=== PATIENT | male | born 1975 | race Caucasian/White ===

== ENCOUNTER 2022-05-01 07:58 | Outpatient (CLI) | payer MEDICARE, MEDICAID, SELFPAY | END 2022-05-01 07:59 | disposition home or self-care (01) | LOC: WOUND 08:00 | PROVIDERS: PCP Family Medicine; Visit Provider Surgery | DX: Z53.9 Procedure and treatment not carried out, unspecified reason (principal) ==

== ENCOUNTER 2022-06-24 12:38 | Outpatient (CLI) | payer MEDICARE, MEDICAID, SELFPAY | END 2022-06-24 12:39 | disposition home or self-care (01) | LOC: FBOREF 12:38 | PROVIDERS: PCP Family Medicine; Visit Provider Family Medicine | DX: L02.91 Cutaneous abscess, unspecified (principal) | CPT/HCPCS: 87070; 87186 ==

== ENCOUNTER 2022-08-20 14:31 | Outpatient (CLI) | payer MEDICARE, MEDICAID, SELFPAY | END 2022-08-20 14:32 | disposition home or self-care (01) | LOC: WOUND 14:31 | PROVIDERS: PCP Family Medicine; Visit Provider Nurse Practitioner Family | DX: S00-T88 Injury, poisoning and certain other consequences of external causes (principal) | CPT/HCPCS: 97597; 99212 ==

== ENCOUNTER 2022-08-27 09:31 | Outpatient (CLI) | payer MEDICARE, MEDICAID, SELFPAY | END 2022-08-27 09:32 | disposition home or self-care (01) | PROVIDERS: PCP Family Medicine; Visit Provider Physician Assistant Surgical | DX: S00-T88 Injury, poisoning and certain other consequences of external causes (principal) | CPT/HCPCS: 99212 ==

== ENCOUNTER 2023-05-01 11:59 | Outpatient (CLI) | payer MEDICARE, MEDICAID, SELFPAY | END 2023-05-01 12:00 | disposition home or self-care (01) | LOC: FBOREF 11:59 | PROVIDERS: PCP Family Medicine; Visit Provider Family Medicine | DX: Z86.14 Personal history of Methicillin resistant Staphylococcus aureus infection (principal) | CPT/HCPCS: 87081 ==

== ENCOUNTER 2023-05-05 09:53 | Outpatient (CLI) | payer MEDICARE, MEDICAID, SELFPAY | END 2023-05-05 09:54 | disposition home or self-care (01) | LOC: WOUND 09:54 | PROVIDERS: PCP Family Medicine; Visit Provider Nurse Practitioner Family | DX: I87.313 Chronic venous hypertension (idiopathic) with ulcer of bilateral lower extremity (principal); L97.822 Non-pressure chronic ulcer of other part of left lower leg with fat layer exposed; L97.812 Non-pressure chronic ulcer of other part of right lower leg with fat layer exposed; I89.0 Lymphedema, not elsewhere classified | CPT/HCPCS: 11042; 97602; 99213 ==

== ENCOUNTER 2023-05-13 09:05 | Outpatient (CLI) | payer MEDICARE, MEDICAID, SELFPAY | END 2023-05-13 09:06 | disposition home or self-care (01) | LOC: WOUND 09:06 | PROVIDERS: PCP Family Medicine; Visit Provider Nurse Practitioner Family | DX: I87.311 Chronic venous hypertension (idiopathic) with ulcer of right lower extremity (principal); L97.312 Non-pressure chronic ulcer of right ankle with fat layer exposed; S90.424A Blister (nonthermal), right lesser toe(s), initial encounter; S90.822A Blister (nonthermal), left foot, initial encounter | CPT/HCPCS: 11042; 97602 ==

== ENCOUNTER 2023-05-20 08:51 | Outpatient (CLI) | payer MEDICARE, MEDICAID, SELFPAY | END 2023-05-20 08:52 | disposition home or self-care (01) | LOC: WOUND 08:51 | PROVIDERS: PCP Family Medicine; Visit Provider Nurse Practitioner Family | DX: I87.311 Chronic venous hypertension (idiopathic) with ulcer of right lower extremity (principal); L97.312 Non-pressure chronic ulcer of right ankle with fat layer exposed; I89.0 Lymphedema, not elsewhere classified; S90.822A Blister (nonthermal), left foot, initial encounter | CPT/HCPCS: 11042; 97597 ==

== ENCOUNTER 2023-06-03 09:53 | Outpatient (CLI) | payer MEDICARE, MEDICAID, SELFPAY | END 2023-06-03 09:54 | disposition home or self-care (01) | LOC: WOUND 09:53 | PROVIDERS: PCP Family Medicine; Visit Provider Nurse Practitioner Family | DX: L89.893 Pressure ulcer of other site, stage 3 (principal); F17.210 Nicotine dependence, cigarettes, uncomplicated; Z71.6 Tobacco abuse counseling | CPT/HCPCS: 97597 ==

== ENCOUNTER 2023-06-10 09:49 | Outpatient (CLI) | payer MEDICARE, MEDICAID, SELFPAY | END 2023-06-10 09:50 | disposition home or self-care (01) | LOC: WOUND 09:49 | PROVIDERS: PCP Family Medicine; Visit Provider Nurse Practitioner Family | DX: L89.893 Pressure ulcer of other site, stage 3 (principal); I89.0 Lymphedema, not elsewhere classified | CPT/HCPCS: 11042 ==

== ENCOUNTER 2023-06-17 09:21 | Outpatient (CLI) | payer MEDICARE, MEDICAID, SELFPAY | END 2023-06-17 09:22 | disposition home or self-care (01) | LOC: WOUND 09:21 | PROVIDERS: PCP Family Medicine; Visit Provider Nurse Practitioner Family | DX: L89.893 Pressure ulcer of other site, stage 3 (principal) | CPT/HCPCS: 11042 ==

== ENCOUNTER 2023-07-01 09:23 | Outpatient (CLI) | payer MEDICARE, MEDICAID, SELFPAY | END 2023-07-01 09:24 | disposition home or self-care (01) | LOC: WOUND 09:24 | PROVIDERS: PCP Family Medicine; Visit Provider Nurse Practitioner Family | DX: L89.893 Pressure ulcer of other site, stage 3 (principal) | CPT/HCPCS: 97597 ==

== ENCOUNTER 2023-07-15 09:21 | Outpatient (CLI) | payer MEDICARE, MEDICAID, SELFPAY | END 2023-07-15 09:22 | disposition home or self-care (01) | LOC: WOUND 09:21 | PROVIDERS: PCP Family Medicine; Visit Provider Nurse Practitioner Family | DX: I87.312 Chronic venous hypertension (idiopathic) with ulcer of left lower extremity (principal); L97.822 Non-pressure chronic ulcer of other part of left lower leg with fat layer exposed; I89.0 Lymphedema, not elsewhere classified | CPT/HCPCS: 97597 ==

== ENCOUNTER 2023-07-22 10:34 | Outpatient (CLI) | payer MEDICARE, MEDICAID, SELFPAY | END 2023-07-22 10:35 | disposition home or self-care (01) | LOC: WOUND 10:35 | PROVIDERS: PCP Family Medicine; Visit Provider Nurse Practitioner Family | DX: I87.313 Chronic venous hypertension (idiopathic) with ulcer of bilateral lower extremity (principal); L97.812 Non-pressure chronic ulcer of other part of right lower leg with fat layer exposed; L97.822 Non-pressure chronic ulcer of other part of left lower leg with fat layer exposed; I89.0 Lymphedema, not elsewhere classified | CPT/HCPCS: 97597 ==

== ENCOUNTER 2023-08-12 09:52 | Outpatient (CLI) | payer MEDICARE, MEDICAID, SELFPAY | END 2023-08-12 09:53 | disposition home or self-care (01) | LOC: WOUND 09:52 | PROVIDERS: PCP Family Medicine; Visit Provider Nurse Practitioner Family | DX: I87.313 Chronic venous hypertension (idiopathic) with ulcer of bilateral lower extremity (principal); I89.0 Lymphedema, not elsewhere classified; L97.818 Non-pressure chronic ulcer of other part of right lower leg with other specified severity; L97.828 Non-pressure chronic ulcer of other part of left lower leg with other specified severity | CPT/HCPCS: 99213 ==

== ENCOUNTER 2024-02-12 09:45 | Outpatient (CLI) | payer MEDICARE, MEDICAID, SELFPAY ==
--- OUTSIDE RECORDS SUMMARY | 2024-02-13 07:13 | XMS_ITS | Clinical Summary ---
Author Name Unknown Organization [facility] Address [address] [place] [id number] Care Team Providers Care Greenhouse Worker Name Role Phone Paras Wells Primary Care Physician Encounter Date(s): 11/25/23 - 11/25/[address] [id number] Discharge Disposition: Other Non-PPS Fac Attending Physician: Paras Wells MD Admitting Physician: Paras Wells MD Referring Physician: Paras Wells MD Vital Signs Most recent to oldest [Reference Range]: 1 Pain Present No actual or suspect ed pain (11/25/23 10:00 AM) Patient Care team information Personnel Name: Paras Wells MD Address: Address: [facility] [address] [place], [place] [address]
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
--- OUTSIDE RECORDS SUMMARY | 2024-02-13 07:14 | XMS_ITS | Referral Summary ---
Author Name Unknown Organization [facility] Address [address] [facility] [place] [address] Care Team Providers Care Popcorn Attendant Name Role Phone Paras Aguilar MD Primary Care Provider Allergies Active [...] T6 cord injury 2001 Colostomy status 02/05/2018 Social History Tobacco Use Types Packs/Day Years [...] Advance Directives For more information, please contact: [phone] * Full Code (Latest Code Status on File) Date Activated Date Inactivated Comments 02/09/2018 9:11 AM * Full Code Date Activated Date Inactivated Comments 02/05/2018 5:50 PM 02/09/2018 9:11 AM Care Teams Popcorn Attendant Relationship Specialty Start Date End Date Paras Aguilar MD PCP - General Family Practice 11/03/17
--- OUTSIDE RECORDS SUMMARY | 2024-02-13 07:15 | XMS_ITS | Continuity of Care Document ---
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 buprenorphine HCl [address] 1 tablet by sublingual route 4 times every day allow to dissolve slowly in mouth without chewing or swallowing 2 MG - Active Chronic pain NEXIUM (unknown strength) Unknown Not Available - Active amitriptyline 75 mg tablet take 1.5 tablet by oral route every day at bedtime 112.5 MG - Active gabapentin 600 mg tablet take 2 tablet by oral route 3 times every day 1200 MG - Active mupirocin 2 % topical ointment apply by topical route 2 times every day a small amount to the affected area Not Available - Active omeprazole 20 mg capsule,delayed release take 1 capsule by oral route every day 30 minutes to 1 hour before a meal 20 MG - Active polyethylene glycol 3350 17 gram/dose oral powder take (8.5-17G) by oral route every day mixed with 4-6 oz. water, juice, soda, coffee or tea - Active senna 8.6 mg capsule take 2 capsule by oral route every day 17.2 MG - Active topiramate 100 mg tablet take 1.5 tablet by oral route every day 150 MG - Active topiramate 50 mg tablet Take 1 tablet by mouth daily in the AM, if Jeffrey sent 50mg tablets (take 2 tab by mouth daily if dosage of 25mg) - Active Vitamin D3 25 mcg (1,000 unit) capsule Take 2 tablets by oral route every day - Active acetaminophen 325 mg capsule Take 2 tablets by oral route every 4 hours as needed for mild pain-- do not exceed 4,000mg in 24 hours as needed - Active cyclobenzaprine 10 mg tablet take 0.5 tablet by oral route 2 times every day as needed 5 MG - Active Julia-lamberto 8.6 mg tablet take 1 tablet by oral route every day 8.6 MG - Active metoclopramide 10 mg tablet take 1 tablet by oral route 4- 6 times every hour 30 minutes before meals and at bedtime as needed - Active oxycodone-acetaminop hen 5 mg-325 mg tablet take 1 tablet by oral route every 6 hours as needed as needed 1.00 tablet - Active dantrolene 50 mg capsule take 1 capsule by oral route 3 times every day 50 MG - Active docusate sodium 100 mg capsule take 1 capsule by oral route 3 times every day as needed 100 MG - Active duloxetine 60 mg capsule,delayed release take 2 capsule by oral route every day 120 MG - Active Gavilax 17 gram/dose oral powder take (17G) by oral route 2 times every day mixed with 8 oz. water, juice, soda, coffee or tea 17 G - Active Jobst Ultrasheer - Active omeprazole 20 mg capsule,delayed release take 1 capsule by oral route every day 30 minutes to 1 hour before a meal 20 MG - Active Trokendi XR 100 mg capsule, extended release take 1 capsule by oral route every day 100 MG - Active Proair Digihaler 90 mcg/actuation aerosol powder breath act, sensor inhale 2 puff by inhalation route every 4 - 6 hours as needed 180 MCG - Active Narcan 4 mg/actuation nasal spray spray 0.1 milliliter by intranasal route in 1 nostril may repeat dose every 2-3 minutes as needed alternating nostrils with each dose 4 MG - Active sumatriptan 100 mg tablet take 1 tablet by oral route after onset of migraine; may repeat after 2 hours if headache returns,not to exceed 200mg in 24hrs 100 MG - Active HYOSCYAMINE 0.15MGTABLET unknown dose and sig - Active baclofen 20 mg Tab 2 tabs Q 6hrs, may take 1 additional prn max 7/day (1T PO HS) - Active Procedures Procedure Date Est Pt Eval Moderate Toxicology Test Group B PHONE E/M PHYS/QHP 21-30 MIN Inj Anes Epidur; Lumb/sac 1 Le 24 Inj Anes Epidur; Lumb/sac 1 Le 24 Change Control for Modifier(s) 24 Inj Anes Epidur; Lumb/sac 1 Le Verified No Separate Anesthesia 024 Est Pt Eval Moderate Toxicology Test Group B Est Pt Eval Telehealth Est Pt Eval Telehealth Est Pt Eval Moderate Toxicology Test Group B Est Pt Eval Telehealth PT Eval - Moderate Complexity 3 Est Pt Eval Telehealth Psychiatric Diagnostic Evaluation Teleph one Only Est Pt Eval Moderate Toxicology Test Group B Inj Anes Epidur; Lumb/sac 1 Le 23 Inj Anes Epidur; Lumb/sac 1 Le 23 Inj Anes Epidur; Lumb/sac 1 Le Change Control for Modifier(s) Verified No Separate Anesthesia 023 Est Pt Eval 25 Min Telehealth 3 Est Pt Eval 25 Min Telehealth 3 Est Pt Eval 25 Min Toxicology Test Group B Inject, Spine, Cerv/Thor, Epi/subarc w/i mg Guid Inject, Spine, Cerv/Thor, Epi/subarc w/i mg Guid Verified No Separate Anesthesia 023 Est Pt Eval 25 Min Telehealth 3 Est Pt Eval 25 Min Telehealth 3 Est Pt Eval 25 Min Toxicology Test Group B Est Pt Eval 25 Min Telehealth 2 Est Pt Eval 25 Min Telehealth 2 Est Pt Eval 25 Min Toxicology Test Group B Est Pt Eval 25 Min Telehealth 2 Psychiatric Diagnostic Evaluation Teleph one Only Est Pt Eval 25 Min Telehealth 2 Est Pt Eval 25 Min Toxicology Test Group B Inject, Spine, Lumb/sacr, Epi/subarc w/ img Guid Inject, Spine, Lumb/sacr, Epi/subarc w/ img Guid Est Pt Eval 25 Min Telehealth 2 Est Pt Eval 25 Min Removal Of Implanted Catheter 2 Removal Of Port/Pump Remove Port/Pump Remove Spine Cath Est Pt Eval 25 Min Anes- All Integ Neck Incl Subq 22 Est Pt Eval 25 Min Telehealth 2 Est Pt Eval 25 Min PT Eval - Moderate Complexity 2 Toxicology Test Group B Est Pt Eval 25 Min Telehealth 2 Est Pt Eval 25 Min Telehealth 2 Global Postop Visit Est Pt Eval 25 Min Telehealth 2 Remove Spine Cath Remove Port/Pump Removal Of Implanted Catheter 2 Removal Of Port/Pump Anes- All Integ Neck Incl Subq 22 Punct Asp Fluid Collection Fluoro Guidance - NonSpine Change Control for Diagnosis(s) 022 Punct Asp Fluid Collection Fluoro Needle NonSpine Est Pt Eval 25 Min Electronic Anal. W/O Reprogram 22 Est Pt Eval 25 Min Elec Analys Progrm Pump; W/rep 21 Est Pt Eval 25 Min Elec Analys Progrm Pump; W/rep Toxicology Test Group C Est Pt Eval 25 Min Telehealth Implant/Replace Prog Pump Implant/Revision Spine Cath Implant/Replace Prog Pump Implant/Revise Spine Cath Est Pt Eval 25 Min Est Pt Eval 25 Min Global Postop Visit Inject,Spine W/cath,lumb/sacrl,Epi/subar W/img Rohit Change Control for Diagnosis(s) 021 Inject,Spine W/cath,lumb/sacrl,Epi/subar W/img Rohit Anesth nerve block/injection, prone Global Postop Visit Implant SCS Epidi Lead Implant SCS Epi Lead Implant SCS Epi Lead Anes For Image Guided Spinal Procedure-T herapeutic Est Pt Eval 25 Min Telehealth Est Pt Eval 25 Min Psychiatric Diagnostic Evaluation New Pt Eval 45 Min Advance Directives Directive Yes / No Effective Date File Name No Information Encounters Encounter Description Practice Location Reason(s) For Visit Diagnoses Date Provider Providers Copied on Encounter [facility], [address], [place], [address], [place] tel:[phone] KODY [facility] No Information 4 RN RN. [address] , [address], [place], [address], [place]. tel:[phone] Est Pt Eval Moderate Jorje, [facility], [address], [place], [place], [address], [place] tel:[phone] [facility] 7390 neck pain (chief complaint) Intervertebral disc disorders w radiculopathy, lumbar regionCervicalg ia 4 Paniagua Deneen. [address] [place], [address], [place]. tel:[phone] Referring Provider: Marco Antonio Parada, [address] [facility] [address], [place], [address]. tel:[phone] Jorje [facility], [address] [facility] [address], [place], [address], [place] tel:[phone] [facility] No Information 4 Paniagua Deneen. [address] [place], [address], [place]. tel:[phone] Referring Provider: Marco Antonio Parada, [address] [facility] [address], [place], [address]. tel:[phone] PHONE E/M PHYS/QHP 21-30 MIN Jorje, [facility], [address] [facility] [address], [place], [address], [place] tel:[phone] [facility] back pain (chief complaint) Intervertebral disc disorders w radiculopathy, lumbar regionCervicalg ia 4 She Qiying. [address] , [facility] [address], [place], [address], [place]. tel:[phone] Referring Provider: Marco Antonio Parada, [address], [place], [address]. tel:[phone] [facility], [address], [facility] [address], [place], [address], [place] tel:[phone] [facility] bilateral leg pain (chief complaint)b ilateral hip pain (chief complaint) Radiculopathy, lumbar regionRadiculop athy, lumbar region 4 [facility]. [address], [place], [place], [address], [place]. tel:[phone] Referring Provider: Duglas Gordon, [address], [place], [address]. tel:[phone] Jorje, [facility], [address], [place], [place], [address], [place] tel:[phone] [facility] No Information 4 [facility]. [address], [place], [address], [place]. tel:[phone] Referring Provider: Duglas Gordon, [address], [place], [address]. tel:[phone] Jorje, [facility], [address], [place], [place], [address], [place] tel:[phone] [facility] No Information 4 [facility]. [address], [place], [address], [place]. tel:[phone] Referring Provider: REFERRAL XIN, NINO. Est Pt Eval Moderate Jorje, [facility], [address], [place], [place], [address], [place] tel:[phone] [facility] back pain (chief complaint) Intervertebral disc disorders w radiculopathy, lumbar regionCervicalg ia 4 Brittany Riggs. [address], [place], [address], [place]. tel:[phone] Referring Provider: Marco Antonio Parada, [address], [place], [address]. tel:[phone] [facility], [address], [place], [place], [address], [place] tel:[phone] [facility] No Information 4 [facility]. [address], [place], [address], [place]. tel:[phone] Referring Provider: Marco Antonio Parada, [address], [place], [address]. tel:[phone] Est Pt Eval Telehealth [facility], [address], [place], [place], [address], [place] tel:[phone] [facility] Neck Pain (chief complaint)B ilateral buttocks (chief complaint) Intervertebral disc disorders w radiculopathy, lumbar regionCervicalg ia 4 She Qiying. [address], [place], [address], [place]. tel:[phone] Referring Provider: Marco Antonio Parada, [address], [address]. tel:[phone] Est Pt Eval Telehealth [facility], [address], [address], [place] tel:[phone] [facility] bilateral buttock pain (chief complaint)N samson Pain (chief complaint) Intervertebral disc disorders w radiculopathy, lumbar regionCervicalg iaParaplegia, unspecified 3 Melum Pinky. [address], [place], [address], [place]. tel:[phone] Referring Provider: Marco Antonio Parada, [address], [address]. tel:[phone] Est Pt Eval Moderate [facility], [address], [place], [place], [address], [place] tel:[phone] [facility] buttock pain (chief complaint)N samson Pain (chief complaint) Intervertebral disc disorders w radiculopathy, lumbar regionCervicalg ia 3 Ketola Skagway. [address], [place], [place], [address], [place]. tel:[phone] Referring Provider: Marco Antonio Parada, [address], [place], [address]. tel:[phone] [facility], [address], [place], [place], [address], [place] tel:[phone] [facility] No Information 3 Ketola [place]agway. [address], [place], [place], [address], [place]. tel:[phone] Referring Provider: Marco Antonio Parada, [address], [address]. tel:[phone] Est Pt Eval Telehealth Jorje, [facility], [address], [place], [place], [address], [place] tel:[phone] [facility] bilateral leg pain (chief complaint)N samson Pain (chief complaint) Intervertebral disc disorders w radiculopathy, lumbar regionPain in unspecified hip 3 Ketola Isamar. [address], [place], [place], [address], [place]. tel:[phone] Referring Provider: Marco Antonio Parada, [address], [address]. tel:[phone] [facility], [address], [place], [place], [address], [place] tel:[phone] [facility] Radiculopathy, lumbar regionCervicalg iaParaplegia, unspecified Sep- 3 Camila Nation. [address] [facility] [address], [place], [address], [place]. tel:[phone] Referring Provider: Marco Antonio Parada, [address], [place], [address]. tel:[phone] Est Pt Eval Telehealth Jorje, [facility], [address] [facility], [place], [place], [address], [place] tel:[phone] [facility] bilateral neck pain (chief complaint)B shiva aches (chief complaint) Body mass index (BMI) 22.0-22.9, adultInterverte bral disc disorders w radiculopathy, lumbar regionPain in unspecified hip Sep-0 3 Ketola Isamar. [address], [place], [place], [address], [place]. tel:[phone] Referring Provider: Marco Antonio Parada, [address], [place], [address]. tel:[phone] Psychiatric Diagnostic Evaluation Telephone Only [facility], [address], [place], [place], [address], [place] tel:[phone] [facility] Pain disorder with related psychological factors 3 Ellis Banks. [address], [place], [address], [place]. tel:[phone] Referring Provider: Marco Antonio Parada, [address], [place], [address]. tel:[phone] Est Pt Eval Moderate Jorje [facility], [address], [place], [place], [address], [place] tel:[phone] [facility] Both buttocks pain (chief complaint)b ilateral neck pain (chief complaint) Body mass index (BMI) 22.0-22.9, adultInterverte bral disc disorders w radiculopathy, lumbar region 3 She Qiying. [address], [place], [address], [place]. tel:[phone] Referring Provider: Marco Antonio Parada, [address], [place], [address]. tel:[phone] [facility], [address], [place], [place], [address], [place] tel:[phone] [facility] No Information 3 She Qiying. [address], [place], [address], [place]. tel:[phone] Referring Provider: Marco Antonio Parada, [address], [place], [address]. tel:[phone] [facility], [facility], [address], [place], [place], [address], [place] tel:[phone] [facility] No Information 3 Elie Cosme. [address], [place], [address], [place]. tel:[phone] Referring Provider: Ba Cardoza, [address], [address]. tel:[phone] [facility], [address], [place], [address], [place] tel:[phone] [facility] back pain (chief complaint) Radiculopathy, lumbar regionRadiculop athy, lumbar region [address] [facility]. [address], [place], [place], [address], [place]. tel:[phone] Referring Provider: Ba Cardoza, [address], [place], [address]. tel:[phone] [facility], [address], [place], [place], [address], [place] tel:[phone] [facility] No Information 3 Elie Cosme. [address], [place], [address], [place]. tel:[phone] Referring Provider: Ba Cardoza, [address], [place], [address]. tel:[phone] Est Pt Eval [address] [facility], [address], [place], [place], [address], [place] tel:[phone] [facility] back pain (chief complaint) Intervertebral disc disorders w radiculopathy, lumbar regionPain in unspecified hipBody mass index (BMI) 24.0-24.9, adult 3 Ketola [place]agway. [address], [place], [place], [address], [place]. tel:[phone] Referring Provider: Marco Antonio Parada, [address], [place], [address]. tel:[phone] Est Pt Eval [address] [facility], [address], [place], [place], [address], [place] tel:[phone] [facility] back pain (chief complaint) Intervertebral disc disorders w radiculopathy, lumbar regionPain in unspecified hipBody mass index (BMI) 24.0-24.9, adult 3 Ketola Isamar. [address], [place], [address], [place]. tel:[phone] Referring Provider: Marco Antonio Parada [address], [place], [address]. tel:[phone] Est Pt Eval 25 Min Jorje, [facility], [address], [place], [place], [address], [place] tel:[phone] [facility] bilateral neck pain (chief complaint)b ack pain (chief complaint) Body mass index (BMI) 24.0-24.9, adultInterverte bral disc disorders w radiculopathy, lumbar regionPain in unspecified hip 3 She Qiying. [address], [place], [address], [place]. tel:[phone] Referring Provider: Marco Antonio Parada, [address], [place], [address]. tel:[phone] Jor[facility], [address], [place], [place], [address], [place] tel:[phone] [facility] No Information 3 She Qiying. [address], [place], [address], [place]. tel:[phone] Referring Provider: Marco Antonio Parada, [address], [place], [address]. tel:[phone] [facility], [address], [place], [address], [place] tel:[phone] [facility] bilateral neck pain (chief complaint) Radiculopathy, cervical regionRadiculop athy, cervical region [address] [facility]. [address], [place], [place], [address], [place]. tel:[phone] Referring Provider: Daniel Asher, [address], [place], [address]. tel:[phone] [facility], [address], [place], [place], [address], [place] tel:[phone] [facility] [place] No Information 3 Lb Sanchez. [address], [place], [place], [address], [place]. tel:[phone] Referring Provider: Daniel Asher, [address], [place], [address]. tel:[phone] [facility], [address], [place], [place], [address], [place] tel:[phone] [facility] [place] No Information 3 Lb Sanchez. [address], [place], [place], [address], [place]. tel:[phone] Referring Provider: Daniel Asher, [address], [place], [address]. tel:[phone] Est Pt Eval 25 Min Telehealth Jorje [facility], [address], [place], [place], [address], [place] tel:[phone] [facility] Gluteal pain (chief complaint) Intervertebral disc disorders w radiculopathy, lumbar regionCervicalg iaPain in legBody mass index (BMI) 23.0-23.9, adult Mar- 3 Ketola [place]ag[place]. [address], [place], [address], [place]. tel:[phone] Referring Provider: Marco Antonio Parada, [address], [place], [address]. tel:[phone] Est Pt Eval 25 Min Telehealth [facility], [address], [place], [place], [address], [place] tel:[phone] [facility] Glute Pain (chief complaint) Intervertebral disc disorders w radiculopathy, lumbar regionPain in legCervicalgiaB shiva mass index (BMI) 23.0-23.9, adult 3 Ketola [place]ag[place]. [address], [place], [address], [place]. tel:[phone] Referring Provider: Marco Antonio Parada, [address], [place], [address]. tel:[phone] Est Pt Eval 25 Min EVERETTE Recinos, [address], [place], [address], [place] tel:[phone] [facility] bilateral leg pain (chief complaint) Intervertebral disc disorders w radiculopathy, lumbar regionPain in legBody mass index (BMI) 23.0-23.9, adult 3 Ketola [place]ag[place]. [address], [place], [address], [place]. tel:[phone] Referring Provider: Marco Antonio Parada, [address], [place], [address]. tel:[phone] EVERETTE Recinos, [address] [facility] [address], [address], [place] tel:[phone] [facility] No Information 3 Ketola Isamar. [address], [place], [address], [place]. tel:[phone] Referring Provider: Marco Antonio Parada, [address], [place], [address]. tel:[phone] Est Pt Eval 25 Min Telehealth [facility] Recinos, [address] [facility] [address], [address], [place] tel:[phone] [facility] back pain (chief complaint) Intervertebral disc disorders w radiculopathy, lumbar regionPain in leg 2 She Qiying. [address], [place], [address], [place]. tel:[phone] Referring Provider: Marco Antonio Parada, [address], [place], [address]. tel:[phone] Est Pt Eval 25 Min Telehealth [facility], [address], [place], [place], [address], [place] tel:[phone] [facility] back pain (chief complaint) Intervertebral disc disorders w radiculopathy, lumbar regionLow back pain, unspecifiedBody mass index (BMI) 25.0-25.9, adult 2 She Qiying. [address], [place], [address], [place]. tel:[phone] Referring Provider: Marco Antonio Parada, [address], [place], [address]. tel:[phone] Est Pt Eval 25 Min [facility], [address], [place], [place], [address], [place] tel:[phone] [facility] bilateral hip pain (chief complaint) Body mass index (BMI) 25.0-25.9, adultInterverte bral disc disorders w radiculopathy, lumbar regionLow back pain, unspecified 2 She Qiying. [address], [place], [address], [place]. tel:[phone] Referring Provider: Marco Antonio Parada, [address], [place], [address]. tel:[phone] [facility], [address], [place], [place], [address], [place] tel:[phone] [facility] No Information 2 She Qicarmen. [address], [place], [address], [place]. tel:[phone] Referring Provider: Marco Antonio Parada, [address] [facility] [address], [place], [address]. tel:[phone] Est Pt Eval [address] [facility], [address], [place], [place], [address], [place] tel:[phone] [place] [facility] bilateral hip pain (chief complaint) Body mass index (BMI) 25.0-25.9, adultInterverte bral disc disorders w radiculopathy, lumbar regionLow back pain, unspecified 2 She Qiying. [address], [place], [address], [place]. tel:[phone] Referring Provider: Marco Antonio Parada, [address] [facility] [address], [place], [address]. tel:[phone] Psychiatric Diagnostic Evaluation Telephone Only J[facility], [address], [place], [place], [address], [place] tel:[phone] [facility] Pain disorder with related psychological factors 2 Gottwalt Lashawn. [address], [address], [place], [place], [address], [place]. tel:[phone] Referring Provider: Marco Antonio Parada, [address] [facility] [address], [place], [address]. tel:[phone] Est Pt Eval 25 Min Telehealth Jorje [facility], [address] [facility] [address], [place], [place], [address], [place] tel:[phone] [facility] buttocks pain (chief complaint) Intervertebral disc disorders w radiculopathy, lumbar regionLow back pain, unspecifiedBody mass index (BMI) 25.0-25.9, adult 2 She Qiying. [address], [address], [place], [address], [place]. tel:[phone] Referring Provider: Oneil Soto, [address], [place], [address]. tel:[phone] Est Pt Eval 25 Min Jorje, [facility], [address], [place], [place], [address], [place] tel:[phone] [facility] buttocks pain (chief complaint) Body mass index (BMI) 25.0-25.9, adultInterverte bral disc disorders w radiculopathy, lumbar regionLow back pain, unspecified 2 She Qiying. [address], [address], [place], [address], [place]. tel:[phone] Referring Provider: Oneil Soto, [address], [place], [address]. tel:[phone] J[facility], [facility], [address], [place], [place], [address], [place] tel:[phone] [facility] No Information 2 She Qiying. [address], [address], [place], [address], [place]. tel:[phone] Referring Provider: Oneli Soto, [address], [place], [address]. tel:[phone] [facility], [facility], [address], [place], [place], [address], [place] tel:[phone] [facility] No Information 2 Lb Sanchez. [address], [place], [place], [address], [place]. tel:[phone] Referring Provider: Daniel Asher, [address], [place], [address]. tel:[phone] [facility], [address], [address], [place], [address], [place] tel:[phone] [facility] back pain (chief complaint) Radiculopathy, lumbar regionRadiculop athy, lumbar region 2 [facility]. [address], [place], [place], [address], [place]. tel:[phone] Referring Provider: Daniel Asher, [address], [place], [address]. tel:[phone] Est Pt Eval 25 Min Telehealth [facility], [address], [place], [place], [address], [place] tel:[phone] [facility] buttocks (chief complaint) Intervertebral disc disorders w radiculopathy, lumbar regionBody mass index (BMI) 25.0-25.9, adultCervicalgi aOpioid dependence, uncomplicated 2 Brittany Riggs. [address], [address], [place], [address], [place]. tel:[phone] Referring Provider: Marco Antonio Parada, [address], [place], [address]. tel:[phone] Est Pt Eval 25 Min [facility], [address], [place], [place], [address], [place] tel:[phone] [facility] Glutes, leg, feet (chief complaint) Pain in legRadiculopath y, lumbar regionBody mass index (BMI) 25.0-25.9, adult February- 2 Brittany Riggs. [address], [address], [place], [address], [place]. tel:[phone] Referring Provider: Oneil Soto, [address], [place], [address]. tel:[phone] [facility], [address], [place], [place], [address], [place] tel:[phone] [facility] No Information 2 Tal Crain. [address], [place], [place], [address], [place]. tel:[phone] Referring Provider: Marco Antonio Parada, [address] [facility] [address], [place], [address]. tel:[phone] [facility], [address], [address], [place], [address], [place] tel:[phone] [facility] back pain (chief complaint) Radiculopathy, lumbar regionOther intervertebral disc degeneration, lumbar regionLow back pain, unspecifiedOpio id dependence, uncomplicated 2 [facility]. [address] [facility] [address], [place], [place], [address], [place]. tel:[phone] Referring Provider: Paras Mckinley, [address], [place], [address]. tel:[phone] Est Pt Eval 25 Min [facility], [address] [facility] [address], [place], [place], [address], [place] tel:[phone] [facility] back pain (chief complaint) Encounter for adjustment and management of infusion pumpLow back pain, unspecified 2 Tal Bernard. [address] [facility] [address], [place], [address], [place]. tel:[phone] Referring Provider: Marco Antonio Parada, [address], [place], [address]. tel:[phone] Jorje, [facility], [address], [place], [place], [address], [place] tel:[phone] [facility] [place] No Information 2 Dylan Dumont. [address], [place], [address], [place]. tel:[phone] Referring Provider: Paras Mckinley, [address], [place], [address]. tel:[phone] Est Pt Eval [address] [facility], [facility], [address], [place], [place], [address], [place] tel:[phone] [facility] back pain (chief complaint) Intervertebral disc disorders w radiculopathy, lumbar regionParaplegi aRadiculopathy, cervical regionBody mass index (BMI) 25.0-25.9, adult 2 She Oneil. [address], [address], [place], [address], [place]. tel:[phone] Referring Provider: Oneil Soto, [address], [place], [address]. tel:[phone] Est Pt Eval [address] [facility], [facility], [address], [place], [place], [address], [place] tel:[phone] [facility] back pain (chief complaint) Intervertebral disc disorders w radiculopathy, lumbar regionParaplegi aRadiculopathy, cervical regionBody mass index (BMI) 26.0-26.9, adult 2 She Tarcyying. [address], [address], [place], [address], [place]. tel:[phone] Referring Provider: Tracycarmen Soto, [address], [place], [address]. tel:[phone] [facility], [address], [place], [place], [address], [place] tel:[phone] [facility] Paraplegia, unspecifiedRadi culopathy, lumbar region 2 Camila Nation. [address], [place], [address], [place]. tel:[phone] Referring Provider: Chapis Jensen, [address], [place], [address]. tel:[phone] [facility], [address], [place], [place], [address], [place] tel:[phone] [facility] No Information 2 She Oneil. [address], [address], [place], [address], [place]. tel:[phone] Referring Provider: Oneil Brittany, [address], [place], [address]. tel:[phone] Est Pt Eval 25 Min Telehealth Jorje [facility], [address], [place], [place], [address], [place] tel:[phone] [facility] Glute pain (chief complaint)b ilateral knee pain (chief complaint) Intervertebral disc disorders w radiculopathy, lumbar regionPain in legParaplegiaPo stlaminectomy syndrome, not elsewhere classifiedLong term (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 analgesicBody mass index (BMI) 26.0-26.9, adult Dec- 2 She Qiying. [address], [address], [place], [address], [place]. tel:[phone] Referring Provider: Oneil Brittany, [address], [place], [address]. tel:[phone] [facility], [address], [place], [place], [address], [place] tel:[phone] KODY Recinos Other specified complications of surgical and medical care, not elsewhere classified, initial encounterPostla minectomy syndrome, not elsewhere classified 2 Tal Crain. [address], [place], [place], [address], [place]. tel:[phone] Referring Provider: Oneil Brittany, [address], [place], [address]. tel:[phone] Est Pt Eval 25 Min Telehealth [facility], [address], [place], [place], [address], [place] tel:[phone] [facility] bilateral leg pain (chief complaint) Radiculopathy, lumbar regionPain in legPostlaminect sofi syndrome, not elsewhere classifiedLong term (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 analgesicInfect ion and inflammatory reaction due to other nervous system device, implant or graft, initial encounter 2 Brittany Riggs. [address], [address], [place], [address], [place]. tel:[phone] Referring Provider: Oneil Brittany, [address], [place], [address]. tel:[phone] [facility], [address], [place], [place], [address], [place] tel:[phone] [facility] back pain (chief complaint) Infection and inflammatory reaction due to other nervous system device, implant or graft, initial encounter 2 RN JOSÉ MIGUEL. [address], [address], [place], [place], [address], [place]. tel:[phone] Referring Provider: REFERRAL SELF, NINO. Est Pt Eval 25 Min Telehealth Jorje [facility], [address] [facility] [address], [place], [place], [address], [place] tel:[phone] [facility] back pain (chief complaint) Intervertebral disc disorders w radiculopathy, lumbar regionLong term (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 analgesic 2 Brittany Riggs. [address], [address], [place], [address], [place]. tel:[phone] Referring Provider: Oneil Soto, [address] [facility] [address], [place], [address]. tel:[phone] [facility], [address], [address], [place], [address], [place] tel:[phone] [facility] Radiculopathy, lumbar regionOther intervertebral disc degeneration, lumbar regionLow back pain, unspecifiedOpio id dependence, uncomplicated 2 [facility]. [address], [place], [place], [address], [place]. tel:[phone] Referring Provider: Paras Mckinley, [address], [place], [address]. tel:[phone] [facility], [address], [place], [place], [address], [place] tel:[phone] [facility] No Information 2 Tal Crain. [address], [place], [place], [address], [place]. tel:[phone] Referring Provider: Marco Antonio Parada, [address] [facility] [address], [place], [address]. tel:[phone] [facility], [address], [place], [place], [address], [place] tel:[phone] [facility] No Information 2 LisaСергейdanette Dumont. [address], [place], [address], [place]. tel:[phone] Referring Provider: Paras Mckinley, [address], [place], [address]. tel:[phone] [facility], [address], [place], [place], [address], [place] tel:[phone] [facility] Other specified complications of surgical and medical care, not elsewhere classified, initial encounter 2 Tal Crain. [address], [place], [place], [address], [place]. tel:[phone] Referring Provider: NINO JONES. [facility], [address], [address], [place], [address], [place] tel:[phone] [facility] aspiration (chief complaint) Other specified complications of surgical and medical care, not elsewhere classified, initial encounter 2 [facility]. [address], [place], [place], [address], [place]. tel:[phone] Referring Provider: Ba Cardoza, [address], [place], [address]. tel:[phone] [facility], [address], [place], [place], [address], [place] tel:[phone] [facility] No Information 2 Elie Cosme. [address], [place], [address], [place]. tel:[phone] Referring Provider: Ba Cardoza, [address], [place], [address]. tel:[phone] Est Pt Eval 25 Min [facility], [address], [place], [place], [address], [place] tel:[phone] [facility] buttocks (chief complaint) Intervertebral disc disorders w radiculopathy, lumbar regionParaplegi aPostlaminectom y syndrome, not elsewhere classifiedEncou nter for adjustment and management of infusion pumpInterverteb ral disc disorders w radiculopathy, lumbar region 2 Veena Funez. [address], [address], [place], [address], [place]. tel:[phone] Referring Provider: Marco Antonio Parada, [address], [place], [address]. tel:[phone] Est Pt Eval 25 Min [facility], [address], [place], [place], [address], [place] tel:[phone] [facility] Pump Visit (chief complaint) Body mass index (BMI) 26.0-26.9, adultInterverte bral disc disorders w radiculopathy, lumbar regionParaplegi aPostlaminectom y syndrome, not elsewhere classifiedEncou nter for adjustment and management of infusion pumpInterverteb ral disc disorders w radiculopathy, lumbar region 1 Burke Osullivan. [address], [place], [address], [place]. tel:[phone] Referring Provider: Marco Antonio Parada, [address], [place], [address]. tel:[phone] Est Pt Eval 25 Min [facility], [address], [place], [place], [address], [place] tel:[phone] [facility] Body aches (chief complaint) Body mass index (BMI) 26.0-26.9, adultPostlamine ctomy syndromeInterve rtebral disc disorders w radiculopathy, lumbar regionEncounter for adjustment and management of infusion pumpPostlaminec francisco syndrome, not elsewhere classified 1 Burke Osullivan. [address], [place], [place], [address], [place]. tel:[phone] Referring Provider: Marco Antonio Parada, [address], [place], [address]. tel:[phone] [facility], [address], [place], [place], [address], [place] tel:[phone] [facility] No Information 1 Burke Osullivan. [address], [place], [address], [place]. tel:[phone] Referring Provider: Marco Antonio Parada, [address], [place], [address]. tel:[phone] Est Pt Eval 25 Min Telehealth [facility], [facility], [address] [facility], [place], [place], [address], [place] tel:[phone] [facility] pelvic pain (chief complaint) Radiculopathy, cervical regionLow back pain, unspecifiedLong term (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 analgesicRadicu lopathy, lumbar regionBody mass index (BMI) 26.0-26.9, adult Nov-3 1 Veena Funez. [address], [address], [place], [address], [place]. tel:[phone] Referring Provider: Dee Dee Curiel, [address], [place], [address]. tel:[phone] [facility], [address], [place], [place], [address], [place] tel:[phone] [facility] No Information 1 Elie Cosme. [address] [facility] [address], [place], [address], [place]. tel:[phone] Referring Provider: Ba Cardoza, [address] [facility] [address], [place], [address]. tel:[phone] [facility], [address], [address], [place], [address], [place] tel:[phone] [facility] back pain (chief complaint) Radiculopathy, lumbar regionOther intervertebral disc degeneration, lumbar regionLow back pain, unspecifiedOpio id dependence, uncomplicated 1 [facility]. [address] [facility], [place], [place], [address], [place]. tel:[phone] Referring Provider: Paras Mckinley, [address], [place], [address]. tel:[phone] Est Pt Eval 25 Min [facility], [address] [facility] [address], [place], [address], [place] tel:[phone] [facility] Postlaminectomy syndrome 1 Tal Bernard. [address] [facility] [address], [place], [address], [place]. tel:[phone] Referring Provider: Marco Antonio Parada, [address] [facility] [address], [place], [address]. tel:[phone] Est Pt Eval 25 Min [facility], [address] [address], [address], [place] tel:[phone] [facility] back pain (chief complaint) Body mass index (BMI) 26.0-26.9, adultOther intervertebral disc degeneration, lumbar regionLow back pain, unspecifiedCerv icalgia 1 Nahun Fields. [address], [place], [address], [place]. tel:[phone] Referring Provider: Donnie Garnica, [address], [place], [address]. tel:[phone] [facility], [address], [place], [place], [address], [place] tel:[phone] [facility] back pain (chief complaint) Other intervertebral disc degeneration, lumbar region 1 RN RN. [address], [place], [place], [address], [place]. tel:[phone] Referring Provider: NINO JONES. [facility], [address], [address], [place], [address], [place] tel:[phone] [facility] back pain (chief complaint) Radiculopathy, lumbar regionOther intervertebral disc degeneration, lumbar regionLow back pain, unspecifiedOpio id dependence, uncomplicatedRa diculopathy, lumbar regionOther intervertebral disc degeneration, lumbar regionLow back pain, unspecifiedOpio id dependence, uncomplicated Nov 1 [facility]. [address], [place], [place], [address], [place]. tel:[phone] Referring Provider: Ba Cardoza, [address], [place], [address]. tel:[phone] [facility], [address], [place], [place], [address], [place] tel:[phone] [facility] No Information 1 Elie Cosme. [address], [place], [address], [place]. tel:[phone] Referring Provider: Ba Cardoza, [address], [place], [address]. tel:[phone] [facility], [address], [place], [place], [address], [place] tel:[phone] [facility] No Information 1 Blas Houston. [address], [place], [place], [address], [place]. tel:[phone] Referring Provider: Ba Cardoza, [address], [place], [address]. tel:[phone] [facility], [address], [place], [place], [address], [place] tel:[phone] [facility] back pain (chief complaint) Other intervertebral disc degeneration, lumbar region 1 RN RN. [address], [address], [place], [place], [address], [place]. tel:[phone] Referring Provider: REFERRAL SELF, NINO. [facility], [facility], [address], [place], [place], [address], [place] tel:[phone] [facility] No Information 1 Tal Crain. [address], [place], [place], [address], [place]. tel:[phone] Referring Provider: Paras Mckinley, [address], [place], [address]. tel:[phone] [facility], [address], [place], [address], [place] tel:[phone] [facility] back pain (chief complaint) Radiculopathy, lumbar regionOther intervertebral disc degeneration, lumbar regionLow back pain, unspecifiedRadi culopathy, lumbar regionOther intervertebral disc degeneration, lumbar regionLow back pain, unspecified 1 [facility]. [address], [place], [place], [address], [place]. tel:[phone] Referring Provider: Paras Mckinley, [address], [place], [address]. tel:[phone] [facility], [facility], [address], [place], [place], [address], [place] tel:[phone] [facility] No Information 1 Luis Angel Garcias. [address] [place], [address], [place]. tel:[phone] Referring Provider: Paras Mckinley, [address], [place], [address]. tel:[phone] Est Pt Eval 25 Min Telehealth [facility], [facility], [address], [place], [place], [address], [place] tel:[phone] [facility] back pain (chief complaint) Low back pain, unspecifiedRadi culopathy, lumbar region Jul-0 1 Nahun Fields. [address], [place], [address], [place]. tel:[phone] Referring Provider: Donnie Garnica, [address], [place], [address]. tel:[phone] Est Pt Eval 25 Min [facility], [facility], [address], [place], [place], [address], [place] tel:[phone] [facility] Body aches (chief complaint) CervicalgiaRadi culopathy, lumbar regionLong term (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 analgesicPostla minectomy syndrome Jun-0 1 Blade Landrum. [address], [place], [address], [place]. tel:[phone] Referring Provider: Lucita Murguia, [address], [place], [address]. tel:[phone] [facility], [address], [place], [place], [address], [place] tel:[phone] [facility] CervicalgiaLow back pain Sep-0 1 RN RN. [address], [place], [place], [address], [place]. tel:[phone] Referring Provider: Jocelyn Corral, [address] [facility] [address], [place], [address]. tel:[phone] Psychiatric Diagnostic Evaluation [facility], [address] [facility] [facility] [address], [place], [place], [address], [place] tel:[phone] [facility] Pain disorder with related psychological factors 1 Ellis Banks. [address] [facility], [place], [address], [place]. tel:[phone] Referring Provider: Jocelyn Corral, [address] [facility] [address], [place], [address]. tel:[phone] New Pt Eval 45 Min [facility], [address] [facility] [address], [place], [place], [address], [place] tel:[phone] [facility] Not Listed (chief complaint)b ack pain (chief complaint) CervicalgiaLow back painRadiculopat hy, lumbar regionLong term (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 analgesicParapl egiaBipolar disorder, unspecifiedRadi culopathy, cervical regionPostlamin ectomy syndromeBody mass index (BMI) 26.0-26.9, adult 1 Tal Crain. [address] [address], [place], [place], [id number], [place]. tel:[phone] Referring Provider: Marco Antonio Parada, [address], [place], [address]. tel:[phone] SOFÍA Recinos, [address], [place], [place], [id number], [place] tel:[phone] [facility] No Information [address] [facility] [address], [facility], [place], [address], [place]. tel:[phone] Referring Provider: REFERRAL XIN, NINO. SOFÍA Recinos, [address], [place], [place], [id number], [place] tel:[phone] [facility] No Information 4 Ra Caldwell. [address] [place], [address], [place]. tel:[phone] Referring Provider: Jorge Alberto Mayorga DDS, [address] [facility] [address], [place], [address]. tel:[phone] Jor[address] [facility], [address], [place], [place], [id number], [place] tel:[phone] [facility] No Information 3 Tal Crain. [address] [facility] [address], [place], [place], [address], [place]. tel:[phone] Referring Provider: Stef Mayorga MD, [address] [facility] [address], [place], [address]. tel:[phone] Family History Family Member Type Diagnosis Age At Onset No Information Payers Payer name Insurance type Covered libertarian ID Authoriza ticlotilde(s) Medicare Part B [id number] Medical Assistance [facility] [id number] Social History Type Description Quantity Date Captured Comments Alcohol Use Details Unknown Caffeine Use Details Unknown Tobacco Use Status Smoking Status No Information Sex Male Chief Complaint And Reason For Visit No Information Reason For Referral Reason For Referral No Information Plan Of Treatment Date Type Action Status Goal Tobacco cessation counseling completed Goal Tobacco cessation counseling completed Goal Tobacco cessation counseling completed Goal Tobacco cessation counseling completed Goal Tobacco cessation counseling completed Goal Tobacco cessation counseling completed Goal Tobacco cessation counseling completed Goal Lifestyle educat ion regarding diet completed Goal Tobacco cessation counseling completed Goal Tobacco cessation counseling completed Goal Lifestyle educat ion regarding diet completed Goal Lifestyle educat ion regarding diet completed Goal Tobacco cessation counseling completed Goal Lifestyle educat ion regarding diet completed Goal Tobacco cessation counseling completed Goal Tobacco cessation counseling completed Goal Lifestyle educat ion regarding diet completed Goal Tobacco cessation counseling completed Goal Lifestyle educat ion regarding diet completed Goal Lifestyle educat ion regarding diet completed Goal Tobacco cessation counseling completed Goal Tobacco cessation counseling completed Goal Lifestyle educat ion regarding diet completed Goal Tobacco cessation counseling completed Goal Tobacco cessation counseling completed Goal Lifestyle educat ion regarding diet completed Goal Tobacco cessation counseling completed Goal Tobacco cessation counseling completed Goal Lifestyle educat ion regarding diet completed Goal Tobacco cessation counseling completed Goal Lifestyle educat ion regarding diet completed Goal Tobacco cessation counseling completed Goal Lifestyle educat ion regarding diet completed Goal Tobacco cessation counseling completed Goal Lifestyle educat ion regarding diet completed Goal Tobacco cessation counseling completed Goal Lifestyle educat ion regarding diet completed Goal Tobacco cessation counseling completed Goal Tobacco cessation counseling completed Goal Lifestyle educat ion regarding diet completed Goal Tobacco cessation counseling completed Goal Lifestyle educat ion regarding diet completed Goal Tobacco cessation counseling completed Goal Tobacco cessation counseling completed Goal Lifestyle educat ion regarding diet completed Goal Lifestyle educat ion regarding diet completed Goal Tobacco cessation counseling completed Goal Tobacco cessation counseling completed Goal Weight-reducing diet educati on completed Goal Tobacco cessation counseling completed Goal Lifestyle educat ion regarding diet completed Goal Tobacco cessation counseling completed Goal Tobacco cessation counseling completed Referral Referred To: Physical Therapy Ordered: Referrals: Physical Therapy. Evaluate and treat ordered Referral Ordered: Referrals: Behavioral Health. Evaluate and treat ordered Referral Referred To: cervical epidural steroid injection Ordered: cervical epidural steroid injection ordered Referral Ordered: Obtain - Outside Med Recs: Telehealth Visit - Dr. Wells at [facility] ordered Referral Referred To: lumbar epidural steroid injection Ordered: lumbar epidural steroid injection L5-S1 ordered Referral Ordered: Infectious Disease (related to Other specified complications of surgical and medical care, not elsewhere classified, initial encounter) ordered Referral Ordered: Infectious Disease (related to Infection and inflammatory reaction due to other nervous system device, implant or graft, initial encounter) ordered Referral Referred To: [facility]
[address] [place], [phone] Ordered: Referrals: Infectious Disease. Evaluate and treat ordered Referral Referred To: Physical Therapy Ordered: Physical Therapy. Evaluate and treat ordered Referral Ordered: Referrals: Behavioral Health ordered Referral Ordered: spinal cord stimulation ordered Referral Referred To: cervical epidural steroid injection Ordered: cervical epidural steroid injection on both sides C6-7 ordered Referral Referred To: Physical Therapy Ordered: Physical Therapy ordered Future Order: Lab Order Confirma tory Urine Drug Screen (UDT) (7-Drug Class), Ordered on: Ordered Future Order: Lab Order Alcohol (Ethyl Glucuronide) (Alcohol), Ordered on: Ordered Future Order: Lab Order Alcohol (Ethyl Glucuronide) (Alcohol), Ordered on: Ordered Future Order: Lab Order Confirma tory Urine Drug Screen (UDT) (7-Drug Class), Ordered on: Ordered Future Order: Lab Order CBC With Differential (LAB02), Ordered on: Ordered Future Order: Lab Order C-Reacti ve Protein ([id number]), Ordered on: Ordered Future Order: Lab Order Chem 7 ( BMP) ([id number]), Ordered on: Ordered Future Order: Lab Order 7-Drug C lass Quantitative Test (7-Drug Class), Ordered on: Ordered Future Order: Lab Order Alcohol (Ethyl Glucuronide) (Alcohol), Ordered on: Ordered Future Order: Radiology Order MR I - Cervical Spine W/O Contrast ([id number]), Ordered on: Ordered History Of Present Illness Encounter Date Complaint History Of Prese nt Illness neck pain The problem has not changed. Location of pain is bilateral lateral neck and bilateral posterior neck. There is radiation of pain to the waist to bilateral feet. The patient describes the pain as Aching and Dull. Denies aggravating factors. Denies relieving factors. back pain Severity level i s 7. Location of pain is lower back. Pain is radiated to the abhishek buttocks and abhishek legs to feet. The patient describes the pain as an ache and dull.The patient denies aggravating factors. The patient denies relieving factors. Additional information: Patient reports 50% relief from LESI on 12/22. bilateral leg pain Location: abhishek ateral. bilateral hip pain Location of p ain is bilateral. back pain Location of pain is lower back. Pain is radiated to the bilateral buttocks and bilateral legs. The patient describes the pain as an ache and throbbing.The patient denies aggravating factors. The patient denies relieving factors. Neck Pain The frequency of pain is constant. Location of pain is bilateral posterior neck. The patient describes the pain as Aching and Throbbing. Denies relieving factors. Bilateral buttocks The symptoms occur constantly. Associated symptoms include Aching, Throbbing. Pain radiates to bilateral toes Neck Pain The severity of the problem is moderate. The problem has not changed. The frequency of pain is constant. There is radiation of pain to the bilateral upper arm. The patient describes the pain as Aching and Sharp. Aggravating factors include rotation. Relieving factors include narcotic analgesics and rest. Pertinent negatives include rash. bilateral buttock pain Patient r eports bilateral buttock pain that radiates down his bilateral posterior legs to his toes. He describes the pain as sharp and aching. The pain is alleviated by distraction and exacerbated by shifting positions. He states it is stable since last visit Neck Pain The severity of the problem is moderate. The problem has not changed. The frequency of pain is constant. Pertinent negatives include bladder incontinence and rash. Additional information: 02/03. buttock pain The location is bilateral buttock to bilateral feet and toes. The symptoms are described as 8/10, stable. Aching and throbbing bilateral leg pain It occurs con stantly. Location: bilateral. The pain radiates to the buttocks bilaterally. The pain is throbbing and shooting. There are no aggravating factors. There are no relieving factors. Neck Pain Location of pain is bilateral anterior neck, bilateral lateral neck and bilateral posterior neck. bilateral neck pain The symptoms occur constantly. Body aches Severity level i s 8. It occurs constantly and is worsening. Location: ABHISHEK gluteal muscles. The pain radiates to the ABHISHEK toes. bilateral neck pain Associated s ymptoms include Throbbing, Needle-like. Both buttocks pain Relieving fac tors include Pain meds/drugs. Associated symptoms include Exploding, Pulling. Pain is radiating to legs and feet. back pain Location of pain is lower back. Pain is radiated to the Legs. back pain It occurs persis tently. Location of pain is lower back, legs and ABHISHEK feet. The patient describes the pain as burning and throbbing. Symptoms are relieved by pain meds/drugs. back pain Severity level i s moderate-severe. The problem is stable. It occurs persistently. Location of pain is lower back, legs and ABHISHEK Foot. bilateral neck pain back pain Location of pain is lower back, legs and bilat hips. The patient describes the pain as an ache.The patient denies aggravating factors. The patient denies relieving factors. bilateral neck pain The symptoms are reported as being severe. The symptoms occur constantly. Gluteal pain The symptoms occ ur constantly. The location is ABHISHEK glutes. Aggravating factors include Nothing. Relieving factors include Pain meds/drugs. The patient states the symptoms are chronic. Glute Pain The symptoms are reported as being 8. The location is glutes. The symptoms are described as ache and sharp. Aggravating factors include Nothing. Relieving factors include Nothing. bilateral leg pain Location: abhishek ateral buttocks. The pain is aching. There are no aggravating factors. There are no relieving factors. back pain Location of pain is lower back. Pain is radiated to the Legs. back pain It occurs persis tently. Location of pain is buttocks to feet.The patient denies aggravating factors. Symptoms are relieved by pain meds/drugs. bilateral hip pain Location of p ain is bilateral hips, legs, feet. The patient describes the pain as numbness, sharp and tingling. Symptom is aggravated by daily activities. Denies relieving factors. Pertinent negatives include fever. bilateral hip pain Severity leve l is severe. The problem is worsening. It occurs constantly. Location of pain is bilateral. There is radiation of pain to the down to toes. The patient describes the pain as an ache and burning. Denies aggravating factors. Denies relieving factors. buttocks pain The symptoms occ ur constantly. The location is radiates to feet. The context of the symptoms include stable. The symptoms are described as burning. Aggravating factors include Nothing. Relieving factors include Nothing. buttocks pain The location is bilateral buttocks radiates to both feet. The symptoms are described as burning. Aggravating factors include Nothing. Relieving factors include Nothing. back pain Location of pain is gluteal area. Pain is radiated to the legs and through the feet. buttocks Relieving factor s include Nothing. Associated symptoms include Ache, Numbness, Stabbing. Pain radiates to bilateral legs and feet. Glutes, leg, feet Associated sym ptoms include Ache, numb, stabbing. back pain Location of pain is lower back and legs. back pain Location of pain is gluteal area. Pain is radiated to the left calf, right calf, left foot, right foot, left thigh, right thigh and both feet.The patient describes the pain as an ache, numbness and stabbing. Symptoms are relieved by pain meds/drugs. Additional information: Prolonged sitting. back pain It occurs persis tently. Location of pain is gluteal area. Pain is radiated to the left calf, right calf, left foot, right foot, left thigh, right thigh and toes on both feet.The patient describes the pain as stabbing and throbbing. Symptoms are aggravated by bending, daily activities, lifting, sitting, standing and walking. Symptoms are relieved by pain meds/drugs. back pain Location of pain is lower back and gluteal area.The patient describes the pain as diffuse, discomforting, dull, stabbing, superficial and throbbing. Symptoms are aggravated by bending, changing positions, daily activities, pushing, rolling over in bed and twisting.The patient denies relieving factors. bilateral knee pain Location: bi lateral knee. The pain is burning. The pain is aggravated by movement. The pain is relieved by pain/RX meds. Glute pain Fe-09-2022 bilateral leg pain Location: abhishek ateral buttocks, knees and feet. The pain is throbbing. The pain is relieved by lying down. back pain Location of pain is lower back. Pain is radiated to the left calf, right calf, left foot, right foot, left thigh and right thigh. back pain Location of pain is gluteal area and legs. aspiration buttocks The symptoms are reported as being severe. The symptoms occur constantly. The location is bilateral buttocks radiating down ABHISHEK legs. He states the symptoms are chronic. Pump Visit The pain is loca samantha in the low back on both sides. The lower back pain radiates into the both legs. Pain intensity is currently 9/10. Body aches Severity level i s 9. Location: buttocks radiates into feet. pelvic pain Location is rect um. There is radiation to butt. The patient describes it as bloating, burning, colicky, sharp and tender. Symptom is aggravated by bending over. Relieving factors include change in position. back pain Location of pain is lower back. Pain is radiated to the LEGS. back pain Location of pain is lower back.The patient describes the pain as burning. Symptoms are aggravated by daily activities and sitting.The patient denies relieving factors. back pain Location of pain is lower back. back pain Location of pain is lower back. Pain is radiated to the DOWN TO LEGS, NECK and ARMS. back pain Location of pain is lower back. back pain Location of pain is lower back and Butt. Pain is radiated to the right foot. back pain The problem is s table. It occurs persistently. Location of pain is lower back.The patient describes the pain as burning.The patient denies relieving factors. Body aches Severity level i s 9. It occurs constantly. Location: abdomen and below, right arm and neck. The pain is muscle spasms. back pain Location of pain is upper back, legs and neck.The patient describes the pain as deep, diffuse, shooting, stabbing, superficial and throbbing. Symptoms are aggravated by bending, changing positions, daily activities and twisting. Symptoms are relieved by injection: trigger point injection, pain meds/drugs, stretching and rest. Not Listed Functional Status Date Functional Assessmen t No Information Instructions Date Instruction Additional Infor esteban - Schedule cervical epidural steroid injection- has been approved. You can call to schedule this any time. Related to Cervicalgia - Refill and continu e Buprenorphine 2mg 4x/day. Fill on 02/06- Refill and continue Fentanyl Patch 25mcg. Fill on 02/04- Continue Gabapentin and Baclofen as prescribed by outside provider- Ok to try injections before thinking about getting the pain pump again. 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 You can call to schedule this any time. Related to Cervicalgia - Continue monitorin g pain relief from recent transforaminal lumbar epidural steroid injection- Refill and continue Buprenorphine 2mg 4x/day. Fill01/10/24- Refill and continue Fentanyl Patch 25mcg. Fill01/10/24- Continue Gabapentin and Baclofen as prescribed by outside provider- Ok to try injections before thinking about getting the pain pump again. 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 You can call to schedule this any time. Related to Cervicalgia - Keep lumbar epidur al steroid injection on 12/12/23- Refill and continue Buprenorphine 2mg 4x/day. Fill 12/11/23- Refill and continue Fentanyl Patch 25mcg. Fill 12/11/23- Continue Gabapentin and Baclofen as prescribed by outside provider- Ok to try injections before thinking about getting the pain pump again. 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 Fill 11/08/23- Refill and continue Fentanyl Patch 25mcg. Fill 11/08/23- Continue Gabapentin and Baclofen as prescribed by outside provider- Ok to try injections before thinking about getting the pain pump again. 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 You can call to schedule this any time. Related to Cervicalgia Schedule cervical ep idural steroid injection has been approved. You can call to schedule this any time. Related to Cervicalgia - Schedule lumbar ep idural steroid injection. You have been approved! - Refill and continue Buprenorphine 2mg 4x/day. Fill 10/06/23- Refill and continue Fentanyl Patch 25mcg. Fill 10/06/23- Continue Gabapentin and Baclofen as prescribed by outside provider- Ok to try injections before thinking about getting the pain pump again. 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 Fill 09/04/23- Refill and continue Fentanyl Patch 25mcg. Fill 09/04/23- Continue Gabapentin and Baclofen as prescribed by outside provider- Request medical records from Dr. 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 Fill 07/31/23- Refill and continue Fentanyl Patch 25mcg. Fill 07/31/23- Continue Gabapentin and Baclofen as prescribed by outside provider- Request medical records from Dr. 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 Fill 07/03/23- Refill and continue Fentanyl Patch 25mcg. Fill 07/03/23- Continue Gabapentin and Baclofen as prescribed by outside provider- Keep appointment for physical therapy for implant device eval- Obtain clearance from primary care provider physician for pain pump re-implantSend records to 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 Fill 06/05/23- Refill and continue Fentanyl Patch 25mcg. Fill 06/05/23- Continue Gabapentin and Baclofen as prescribed by outside provider-Schedule with physical therapy for implant device eval-Schedule with Behavioral health counselor for implant device eval- Obtain clearance from primary care provider physician for pain pump re-implantSend records to 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 Fill on 05/06/23- Refill and continue Fentanyl Patch 25mcg. Fill on 05/06/23- Continue Gabapentin and Baclofen as prescribed by outside provider- Keep Transforaminal Lumbar Epidural Steroid Injection as scheduled on 05/12/23- Follow up with infections disease or primary care provider physician to get clearance for pain pump re-implantSend records to 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 Fill on 04/06/23- Refill and continue Fentanyl Patch 25mcg. Fill on 04/06/23- Continue Gabapentin and Baclofen as prescribed by outside provider- Keep Transforaminal Lumbar Epidural Steroid Injection as scheduled on 04/11/23- Follow up with infections disease or primary care provider physician to get clearance for pain pump re-implantSend records to 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 Fill on 03/08/23- Refill and continue Fentanyl Patch 25mcg. 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, lumbar region Same plan of care as statement for above diagnosis, no changes Related to Pain in unspecified hip Lifestyle education regarding di et Related to Body mass index [BMI] 24.0-24.9, adult Follow up in the [facility] to discuss the results of today's injection Related to Radiculopathy, cervical region Same plan of care as statement for above diagnosis, no changes Related to Pain in leg - Keep scheduled Cer vical Epidural Steroid Injection for 01/17/23- Consider updating your cervical imaging if this injection is not helpful Related to Cervicalgia -Ordered Transforami nal Lumbar Epidural Steroid Injection today- Refill and continue Buprenorphine 2mg 4x/day. Fill on 01/16/23- Refill and continue Fentanyl Patch 25mcg. 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 Fill on 12/23/22- Refill and continue Fentanyl Patch 25mcg. 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 Fill on 11/23/22- Refill and continue Fentanyl Patch 25mcg. 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 Fill on 10/24/22- Refill and continue Fentanyl Patch 25mcg. 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 Fill on 09/24- Refill and continue Fentanyl 25mcg patch every 72 hours, #10 for 30-day supply. 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 Fill on 08/25/22- Prescribe Fentanyl 25mcg patch every 72 hours, #10 for 30-day supply. Fill on 08/19/22- Continue Gabapentin as prescribed by outside provider- Continue Baclofen as prescribed by outside provider- Sign release of information for medical records from [facility] in [place] to be sent to 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, lumbar region Same plan of care as statement for above diagnosis, no changes Related to Opioid dependence, uncomplicated Lifestyle education regarding di et Related to Body mass index [BMI] 25.0-25.9, adult Same plan of care as statement for above diagnosis, no changes Related to Body mass index (BMI) 25.0-25.9, adult -Continue Gabapentin and Baclofen as prescribed by outside provider-Refill and continue Butrans 20mcg/hr patch as prescribed, for fill 03/27/22-Follow up family provider as soon as possible for MRSA positive from pain pump catheter site-Follow up with infectious disease provider at [facility] for MRAS treatment-Follow up in one month with BREANNE via telehealth Related to Radiculopathy, lumbar region Same plan of care as statement for above diagnosis, no changes Related to Pain in leg Lifestyle education regarding di et Related to Body mass index [BMI] 25.0-25.9, adult Consider cervical ep idural steroid injection once infection cleared up Related to Radiculopathy, cervical region Same plan of care as statement for above diagnosis, no changes Related to Paraplegia -Continue Gabapentin and Baclofen as prescribed by outside provider-Refill and continue Butrans 20mcg/hr patch as prescribed, for fill 03/07-Proceed with pump surgery as scheduled on 02/28/22-Complete blood lab tests ordered as early as possible-Follow up in 4 weeks via telehealth 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, lumbar region Giving encouragement to exercise Related to Body mass index [BMI] 25.0-25.9, adult Consider cervical ep idural steroid injection once infection cleared up Related to Radiculopathy, cervical region -Continue Gabapentin and Baclofen as prescribed by outside provider-Refill and continue Butrans 20mcg/hr patch as prescribed, for fill on 02/05/22-Follow up with primary provider to address frequent falls-Follow up in 4 weeks via telehealth 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 for same day as in clinic eval-Follow up IN CLINIC in 4 weeks 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, lumbar region Same plan of care as statement for above diagnosis, no changes Related to skilled nursing (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 analgesic Same plan of care as statement for above diagnosis, no changes Related to Postlaminectomy syndrome, not elsewhere classified Same plan of care as statement for above diagnosis, no changes Related to Pain in leg Same plan of care as statement for above diagnosis, no changes Related to Paraplegia Lifestyle education regarding di et Related to Body mass index [BMI] 26.0-26.9, adult -[facility] Related to Infection and inflammatory reaction due to other nervous system device, implant or graft, initial encounter Same plan of care as statement for above diagnosis, no changes Related to skilled nursing (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 analgesic Same plan of care as statement for above diagnosis, no changes Related to Postlaminectomy syndrome, not elsewhere classified Same plan of care as statement for above diagnosis, no changes Related to Pain in leg -Refill and continue Bel[place] 20mcg/hr patch, for fill on 12/10/21-Schedule annual physical Therapy appt.-Follow up in 4 weeks via telehealth Related to Radiculopathy, lumbar region Keep taking antibiot ics till gone. Follow up with infections disease for clearance for re-plant spinal cord stimulator. Call with any questions. Related to Infection and inflammatory reaction due to other nervous system device, implant or graft, initial encounter -Continue Dwight 5-32 5mg, 1-2 tabs, 4-6x/day as needed for post-surgical pain-Continue Bactrim oral antibiotic as prescribed on 11/08/2021 -Refill and continue Butrans 20mcg/hr patch as prescribed, change every 4 days, for fill on 11/12/2021-Follow up as scheduled 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, lumbar region Same plan of care as statement for above diagnosis, no changes Related to skilled nursing (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 analgesic Follow up in the [facility]i [facility] as needed.Order CBC, BMP, CRP, Culture and sensitivity of the aspirated fluid.Continue the oral antibiotics started by his PCP.Tablet Bactrim 800 mg twice daily for 5 days. Related to Other specified complications of surgical and medical care, not elsewhere classified, initial encounter -Continue Butrans 15mcg/hr Relat ed to Intervertebral disc disorders w radiculopathy, lumbar region Same plan of care as statement for above diagnosis, no changes Related to Postlaminectomy syndrome, not elsewhere classified Same plan of care as statement for above diagnosis, no changes Related to Paraplegia Same plan of care as statement for above diagnosis, no changes Related to Encounter for adjustment and management of infusion pump - Reprogram increase in SC Fentanyl by 75mcg- Reprogram increase in boluses to 40mcg each- Order next syringe to increase SC Bupivacaine by 3mg- Refill and continue Butrans, decrease to 15mcg/hr- Follow up as scheduled for next pump appointment 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, lumbar region Same plan of care as statement for above diagnosis, no changes Related to Body mass index (BMI) 26.0-26.9, adult Same plan of care as statement for above diagnosis, no changes Related to Paraplegia Same plan of care as statement for above diagnosis, no changes Related to Postlaminectomy syndrome, not elsewhere classified Same plan of care as statement for above diagnosis, no changes Related to Encounter for adjustment and management of infusion pump Lifestyle education regarding di et Related to Body mass index [BMI] 26.0-26.9, adult - Reprogram increase in SC Fentanyl by 60mcg- Ice incisions for 15-20min at a time, about 4x/day- Continue to wear abdominal binder- Continue Butrans 20mcg/hr transdermal patch- Follow up as scheduled for next pump appointment 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, lumbar region Same plan of care as statement for above diagnosis, no changes Related to Encounter for adjustment and management of infusion pump Same plan of care as statement for above diagnosis, no changes Related to Body mass index (BMI) 26.0-26.9, adult Same plan of care as statement for above diagnosis, no changes Related to Postlaminectomy syndrome Lifestyle education regarding di et Related to Body mass index [BMI] 26.0-26.9, adult Continue outside med ications as prescribedRefill and continue Butrans 20mcg/hr patch, 7 patches as prescribed, for fill 09/25Follow up as scheduled Related to Radiculopathy, cervical region Same plan of care as statement for above diagnosis, no changes Related to Radiculopathy, lumbar region Same plan of care as statement for above diagnosis, no changes Related to Low back pain, unspecified Same plan of care as statement for above diagnosis, no changes Related to watermaster (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 analgesic Weight-reducing diet education R elated to Body mass index [BMI] 26.0-26.9, adult - return on 09/12/21 for scheduled IT Pain Pump placement - continue to follow up as scheduled Related to Postlaminectomy syndrome - Refill Butrans 20m cg/hr patch-Continue taking Gabapentin, Tylenol as needed, Baclofen 20mg, 2 tabs TID, Duloxetine, amitriptyline, and Cyclobenzaprine through an outside provider.-Follow up in 4 weeks Related to Other intervertebral disc degeneration, lumbar region Same plan of care as statement for above diagnosis, no changes Related to Cervicalgia Same plan of care as statement for above diagnosis, no changes Related to Body mass index (BMI) 26.0-26.9, adult Same plan of care as statement for above diagnosis, no changes Related to Low back pain, unspecified same Related to Opioi d dependence, uncomplicated same Related to Low b ack pain, unspecified Follow up for the du ration of the trial as scheduled. Related to Radiculopathy, lumbar region same Related to Other intervertebral disc degeneration, lumbar region Lifestyle education regarding di et Related to Body mass index [BMI] 26.0-26.9, adult -Continue with sched uled follow up visits for the remainder of the trial Related to Radiculopathy, lumbar region Same plan of care as statement for above diagnosis, no changes Related to Radiculopathy, lumbar region -Refill Butrans 20mc g/hr patch, 7 patches fill today-Continue Gabapentin, Tylenol, Baclofen, Duloxetine, amitriptyline, and cyclobenzaprine-Keep schedule spinal stimulator trial-Continue physical therapy-Follow up in 4 weeks with BREANNE Related to Low back pain, unspecified Same plan of care as statement for above diagnosis, no changes Related to skilled nursing (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 analgesic Same plan of care as statement for above diagnosis, no changes Related to Radiculopathy, lumbar region -Prescribe Butrans 2 0mcg/hr, change every 4 days. -Continue with outside Physical Therapy, release records to [facility]-Follow up in one month -UDT done at today's visit Related to Cervicalgia Same plan of care as statement for above diagnosis, no changes Related to Postlaminectomy syndrome Same plan of care as statement for above diagnosis, no changes Related to Postlaminectomy syndrome - order MRI of the c ervical spine at [facility]- give literature on implantable devices- schedule cervical epidural steroid injection at C6-7 will plan for a series if successful at addressing neck pain - begin prior authorization for spinal stimulation for low back and bilateral leg pain. If unsuccessful, will consider a trial of an IT Pain Pump - refer to physical therapy for implant evaluation - refer to behavioral health for implant evaluation - no medications prescribed today - return in one month with advanced practice provider to discuss plan of care moving forward The risks and benefits of the procedure will be reviewed with the physician on the day of the procedure. Related to Cervicalgia Same plan of care as statement for above diagnosis, no changes Related to Radiculopathy, cervical region Same plan of care as statement for above diagnosis, no changes Related to Low back pain Same plan of care as statement for above diagnosis, no changes Related to Radiculopathy, lumbar region Same plan of care as statement for above diagnosis, no changes Related to Bipolar disorder, unspecified Same plan of care as statement for above diagnosis, no changes Related to Paraplegia Same plan of care as statement for above diagnosis, no changes Related to watermaster (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 analgesic Prescribed activity/ exercise education Related to Body mass index [BMI] 26.0-26.9, adult Dietary needs education Related to Body mass index [BMI] 26.0-26.9, adult Assessments Type Assessment Date No Information Patient Care Teams Name Effective Dates (start - stop) Status Members No Information
== END 2024-02-12 09:46 | disposition home or self-care (01) ==
LOC: NFLDREF 02-13 07:12
PROVIDERS: PCP Family Medicine; Referring Provider Family Medicine; Visit Provider Family Medicine
DX: N39.0 Urinary tract infection, site not specified (principal)
CPT/HCPCS: 81001; 87086; 87186

== ENCOUNTER 2024-05-25 09:51 | Outpatient (CLI) | payer MEDICARE, MEDICAID, SELFPAY ==
--- OUTSIDE RECORDS SUMMARY | 2024-05-25 09:57 | XMS_ITS | Referral Summary ---
Author Organization [place] Address [address] [facility] [place] [address] Care Team Providers Care Manager Of Radiology Name Role Phone Paras Aguilar MD Primary [...] Advance Directives For more information, please contact: [phone] * Full Code (Latest Code Status on File) Date Activated Date Inactivated Comments 02/09/2018 9:11 AM * Full Code Date Activated Date Inactivated Comments 02/05/2018 5:50 PM 02/09/2018 9:11 AM Care Teams Manager Of Radiology Relationship Specialty Start Date End Date Paras Aguilar MD PCP - General Family Practice 11/03/17
--- OUTSIDE RECORDS SUMMARY | 2024-05-25 09:57 | XMS_ITS | Clinical Summary ---
Author Organization [place] Address [address] [facility] [address] Care Team Providers Care Heel Trimmer Name Role Phone Paras Aguilar MD Primary Care Provider [phone] Allergies Active Allergy Reactions Criticality Noted Date [...] Advance Directives For more information, please contact: [phone] * Full Code (Latest Code Status on File) Date Activated Date Inactivated Comments 02/09/2018 9:11 AM * Full Code Date Activated Date Inactivated Comments 02/05/2018 5:50 PM 02/09/2018 9:11 AM Care Teams Heel Trimmer Relationship Specialty Start Date End Date Paras Aguilar MD PCP - General Family Practice 11/03/17
--- OUTSIDE RECORDS SUMMARY | 2024-05-25 09:57 | XMS_ITS | Clinical Summary ---
Author Organization [employer] [facility] Address [place], [place] [address] Care Team Providers Care Tape Maker Name Role Phone Paras Aguilar MD Primary [...] ogenic bladder As directed 1 Each. 20 spanish catheter. 4 Kit 3 08/24/2018 Active medication [...] supply miscIndications:Tyler rogenic bladder As directed. 20 Filipino urinary indwelling catheter. Change monthly. 1 Each [...] bed. Length of need 99 months. Bed installation technician:no 1 unit 02/24/2019 Active durable medical equipment [...] spry nasal sprayIndications:Op ioid use Inhale 1 [place] in the nostril(s) one time if needed [...] Controlled substance agreement signed 02/17/2019 03/14/2021 Overview: [facility] Medical marijuana use 06/11/20162017 Overview: Karla [...] age 15-65 1990 Hepatitis C screening for age 18-79 1993 Colonoscopy through age 75 01/19/2020 Depression screening for age 12+ 08/04/2020 08/04/2019, 07/02/2018, 07/02/2018, Additional history exists Lipids for age 45-75 10/11/2021 10/11/2016, 05/17/20 13 Tetanus booster 03/03/2022 03/03/2012, 10/27/1999 COVID-19 vaccine series (2022- season) 2023 02/19/2022, 10/05/2021, 12/05/2020, Additional history exists Influenza for age 9-49 06/27/2024 9, 08/04/2018, 07/11/2017, Additional history exists Tdap Completed 03/03/2012 Pneumococcal series for age 6-64 Aged Out 08/09/2015 No longer eligible based on patient's age to complete this topic Medical Devices Implanted Type Area Director Of Teacher Education Device Identifier Shelf Expiration Date Model / Serial / Lot [id number] - [id number] Implanted:Qty: 1 on 09/23/2018 by Clifton Tomlin MD at [facility] Left: Hip [employer] 06/26/2022 [id number] / / [id number] Description:Gamma Long nail [id number] - [id number] Implanted:Qty: 1 on 09/23/2018 by Clifton Tomlin MD at [facility] Left: Hip [employer] 12/24/2022 [id number] / / [id number] Description:Gamma Lag screw [id number] - [id number] Implanted:Qty: 1 on 09/23/2018 by Clifton Tomlin MD at [facility] Left: Hip [employer] 04/25/2023 [id number] / / [id number] Description:Locking screw Procedures Procedure Name Priority Date/Time Associated Diagnosis Comments LIPID PANEL W REFLEX MEASURED LDL Routine 10/11/2016 4:35 PM LOW [employer] OFFICER Routine general medical examination at a health care facility from Last 3 Months or Most Recently Relevant to Health Maintenance Results * LIPID PANEL W REFLEX MEASURED LDL (10/11/2016 4:35 PM [employer] OFFIC[employer]) CHOLESTEROL,TOTAL 168 100 - 199 mg/dL 10/11/2016 7:37 PM L[employer] OFFICER [facility] TRIGLYCERIDES 108 <150 mg/dL 10/11/2016 7:37 PM [employer]IC[employer] [facility] HDL CHOLESTEROL 42 >40 mg/dL 6 7:37 PM L[employer]IC[employer] [facility] NON-HDL CHOLESTEROL 126 <145 mg/dl 10/11/2016 7:37 PM [facility] CHOL/HDL RATIO 4.00 <4.50 10/11/2016 7:37 PM [employer] [facility] LDL CHOLESTEROL 104 <=130 mg/dL 10/11/2016 7:37 PM [employer] [facility] PATIENT STATUS NOT GIVEN 10/11/2016 7:37 PM [employer] [facility] Blood BLOOD SPECIMEN / Unknown Butterfly / Unknown 10/11/2016 4:35 PM [employer] 10/11/2016 4:35 PM [employer] Paras Aguilar MD CHEMISTRY [facility] [address] [place] [address] from Last 3 Months or Most Recently [...] 12 months since positive culture): resides in acute/intermediate care, receiving hemodialysis, has chronic open wounds/skin damage, has long-term percutaneous indwelling medical devices. Exclusions for nares collection (if <12 months since positive culture) include all of the previous exclusions plus patients on antibiotics 7 days prior to collection. 05/12/2021 02/28/2022 Advance Directives Documents on File Type Date Recorded Patient Internal Carver Expl anation Power of Event Marketing Manager 09/19/2017 12:00 PM 01/25 04/28 Healthcare Directive [...] Code Status Discussion: Not Discussed Care Teams Tape Maker Relationship Specialty Start Date End Date Paras Aguilar MD [address] [place] [address] PCP - General Family Practice 09/14/20 [facility] Registered Nurse 11/05/17 [employer]ang Rod Horseradish Grinder 12/26/17
--- OUTSIDE RECORDS SUMMARY | 2024-05-25 09:58 | XMS_ITS | Continuity of Care Document ---
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 Name Role Phone Pani[place] MACHINE LEAD BURNER-CSantosDeneen Unavailable Unavailable Allergies, Adverse Reactions, Alerts Substance [...] (unknown strength) Unknown Not Available - Active Julia-lamberto 8.6 mg tablet take [...] needed as needed 1.00 tablet - Active cyclobenzaprine 10 mg tablet take 0.5 tablet by oral route 2 times every day as needed 5 MG - Active omeprazole 20 mg capsule,delayed release take 1 capsule by oral route every day 30 minutes to 1 hour before a meal 20 MG - Active mupirocin 2 % topical ointment apply by topical route 2 times every day a small amount to the affected area Not Available - Active gabapentin 600 mg tablet take 2 tablet by oral route 3 times every day 1200 MG - Active amitriptyline 75 mg tablet take 1.5 tablet by oral route every day at bedtime 112.5 MG - Active acetaminophen 325 mg capsule Take 2 tablets by oral route every 4 hours as needed for mild pain-- do not exceed 4,000mg in 24 hours as needed - Active Vitamin D3 25 mcg (1,000 unit) capsule Take 2 tablets by oral route every day - Active topiramate 50 mg tablet Take 1 tablet by mouth daily in the AM, if Jeffrey sent 50mg tablets (take 2 tab by mouth daily if dosage of 25mg) - Active topiramate 100 mg tablet take 1.5 tablet by oral route every day 150 MG - Active senna 8.6 mg capsule take 2 capsule by oral route every day 17.2 MG - Active polyethylene glycol 3350 17 gram/dose oral powder take (8.5-17G) by oral route every day mixed with 4-6 oz. water, juice, soda, coffee or tea - Active sumatriptan 100 mg tablet take 1 tablet by oral route after onset of migraine; may repeat after 2 hours if headache returns,not to exceed 200mg in 24hrs 100 MG - Active Narcan 4 mg/actuation nasal spray spray 0.1 milliliter by intranasal route in 1 nostril may repeat dose every 2-3 minutes as needed alternating nostrils with each dose 4 MG - Active Proair Digihaler 90 mcg/actuation aerosol powder breath act, sensor inhale 2 puff by inhalation route every 4 - 6 hours as needed 180 MCG - Active Trokendi XR 100 mg capsule, extended release take 1 capsule by oral route every day 100 MG - Active omeprazole 20 mg capsule,delayed release take 1 capsule by oral route every day 30 minutes to 1 hour before a meal 20 MG - Active Jobst Ultrasheer - Active Gavilax 17 gram/dose oral powder take (17G) by oral route 2 times every day mixed with 8 oz. water, juice, soda, coffee or tea 17 G - Active duloxetine 60 mg capsule,delayed release take 2 capsule by oral route every day 120 MG - Active docusate sodium 100 mg capsule take 1 capsule by oral route 3 times every day as needed 100 MG - Active dantrolene 50 mg capsule take 1 capsule by oral route 3 times every day 50 MG - Active baclofen 20 mg Tab 2 tabs Q 6hrs, may take 1 additional prn max 7/day (1T PO HS) - Active HYOSCYAMINE 0.15MGTABLET unknown dose and sig - Active Procedures Procedure Date Est Pt Eval Telehealth PHONE E/M PHYS/QHP 21-30 MIN Est Pt Eval Moderate Toxicology Test Group B PHONE E/M PHYS/QHP 21-30 MIN Inject, Spine, Cerv/Thor, Epi/subarc w/i mg Guid Inject, Spine, Cerv/Thor, Epi/subarc w/i mg Guid DEXAMETHASONE SODIUM PHOS Verified No Separate Anesthesia 024 Est Pt Eval Telehealth Est Pt Eval Moderate Toxicology Test Group B PHONE E/M PHYS/QHP 21-30 MIN Inj Anes Epidur; Lumb/sac 1 Le 24 Inj Anes Epidur; Lumb/sac 1 Le 24 Change Control for Modifier(s) 24 Inj Anes Epidur; Lumb/sac 1 Le 24 Verified No Separate Anesthesia 024 Est Pt Eval Moderate Toxicology Test Group B Est Pt Eval Telehealth Est Pt Eval Telehealth Est Pt Eval Moderate Toxicology Test Group B Est Pt Eval Telehealth PT Eval - Moderate Complexity Est Pt Eval Telehealth Psychiatric Diagnostic Evaluation [...] Min Anes- All Integ Neck Incl Subq Est Pt Eval 25 Min Telehealth 2 Est Pt Eval 25 Min PT Eval - Moderate Complexity 2 Toxicology Test Group B Apr-12-2022 Est Pt Eval 25 Min Telehealth 2 [...] Min Elec Analys Progrm Pump; W/rep 21 Toxicology Test Group C Est Pt Eval 25 Min Telehealth 1 Implant/Replace Prog Pump Implant/Revision Spine Cath Implant/Replace [...] Yes / No Effective Date File Name Other Directive No N/A N/A WARNING:The information contained in this section is historical and is provided for information only and does not constitute a legal document or any assurance that the information is still accurate. Please verify the information with the cesar of the legal document before using it for clinical purposes. Encounters Encounter Description Practice Location Reason(s) For Visit Diagnoses Date Provider Providers Copied on Encounter Est Pt Eval Telehealth [facility]TE Recinos, [address] [facility] [facility] [address], [place], [address], tel:[phone] [facility] lower back pain (chief complaint) Intervertebral disc disorders w radiculopathy, lumbar regionCervicalg ia 4 Paniagua Deneen. [address] [place], [address], [place]. tel:[phone] Referring Provider: Marco Antonio Parada, [address], [address]. tel:[phone] Est Pt Eval Moderate EVERETTE Recinos, [address], [place], [address], [place] tel:[phone] [facility] lower back pain (chief complaint) Intervertebral disc disorders w radiculopathy, lumbar regionCervicalg ia 4 She Qiying. [address], [facility] [address], [place], [address], [place]. tel:[phone] Referring Provider: Marco Antonio Parada, [address] [facility] [address], [address]. tel:[phone] EVERETTE Recinos, [address], [place], [address], [place] tel:[phone] [facility] No Information 4 She Qiying. [address], [place], [address], [place]. tel:[phone] Referring Provider: Marco Antonio Parada, [address], [address]. tel:[phone] PHONE E/M PHYS/QHP 21-30 MIN [facility], [address], [place], [address], [place] tel:[phone] [facility] lower back pain (chief complaint) Intervertebral disc disorders w radiculopathy, lumbar regionCervicalg ia 4 Brittany Qicarmen. [address], [address], [place], [address], [place]. tel:[phone] Referring Provider: Marco Antonio Parada, [address], [address]. tel:[phone] [facility], [facility], [address], [place], [address], [place] tel:[phone] [facility] No Information 4 Elie Cosme. [address], [place], [address], [place]. tel:[phone] Referring Provider: Ba Cardoza, [address], [address]. tel:[phone] [facility], [address], [place], [address], [place] tel:[phone] [facility] neck pain (chief complaint) Radiculopathy, cervical regionRadiculop athy, cervical region 4 [facility]. [address], [place], [place], [address], [place]. tel:[phone] Referring Provider: Ba Cardoza, [address], [address]. tel:[phone] [facility], [address], [place], [place], [address], [place] tel:[phone] [facility] No Information 4 Elie Cosme. [address], [place], [address], [place]. tel:[phone] Referring Provider: Ba Cardoza, [address], [address]. tel:[phone] Est Pt Eval Telehealth [facility], [facility], [address] [facility] [address], [place], [address], [place] tel:[phone] [facility] back pain (chief complaint)n samsno pain (chief complaint) Intervertebral disc disorders w radiculopathy, lumbar regionCervicalg ia 4 She Qiying. [address], [place], [address], [place]. tel:[phone] Referring Provider: Marco Antonio Parada, [address], [address]. tel:[phone] Est Pt Eval Moderate [facility], [address] [facility] [address], [place], [address], [place] tel:[phone] [facility] [address] neck pain (chief complaint) Intervertebral disc disorders w radiculopathy, lumbar regionCervicalg ia 4 Paniagua Deneen. [address] [place], [address], [place]. tel:[phone] Referring Provider: Marco Antonio Parada, [address], [address]. tel:[phone] [facility], [address] [facility] [address], [place], [address], [place] tel:[phone] [facility] No Information 4 Paniagua Deneen. [address], [place], [address], [place]. tel:[phone] Referring Provider: Marco Antonio Parada, [address], [place], [address]. tel:[phone] PHONE E/M PHYS/QHP 21-30 MIN [facility], [address], [place], [place], [address], [place] tel:[phone] [facility] back pain (chief complaint) Intervertebral disc disorders w radiculopathy, lumbar regionCervicalg ia 4 She Oneil. [address], [address], [place], [address], [place]. tel:[phone] Referring Provider: Marco Antonio Parada, [address], [place], [address]. tel:[phone] [facility], [address], [place], [place], [address], [place] tel:[phone] [facility] No Information 4 Evan Arodn. [address], [place], [address], [place]. tel:[phone] Referring Provider: Duglas Gordon, [address], [place], [address]. tel:[phone] [facility], [address], [place], [address], [place] tel:[phone] [facility] bilateral leg pain (chief complaint)b ilateral hip pain (chief complaint) Radiculopathy, lumbar regionRadiculop athy, lumbar region 4 [facility]. [address], [place], [place], [address], [place]. tel:[phone] Referring Provider: Duglas Gordon, [address], [place], [address]. tel:[phone] [facility], [facility], [address], [place], [place], [address], [place] tel:[phone] [facility] No Information 4 Evan Ardon. [address], [place], [address], [place]. tel:[phone] Referring Provider: TYRA LAUREN, NINO. Est Pt Eval Moderate [facility], [facility], [address], [place], [place], [address], [place] tel:[phone] [facility] back pain (chief complaint) Intervertebral disc disorders w radiculopathy, lumbar regionCervicalg ia 4 She Qiying. [address], [address], [place], [address], [place]. tel:[phone] Referring Provider: Marco Antonio Parada, [address], [place], [address]. tel:[phone] [facility], [address], [place], [place], [address], [place] tel:[phone] [facility] No Information 4 She Qiying. [address], [address], [place], [address], [place]. tel:[phone] Referring Provider: Marco Antonio Parada, [address], [place], [address]. tel:[phone] Est Pt Eval Telehealth [facility], [facility], [address], [place], [place], [address], [place] tel:[phone] [facility] Neck Pain (chief complaint)B ilateral buttocks (chief complaint) Intervertebral disc disorders w radiculopathy, lumbar regionCervicalg ia 4 Brittany Riggs. [address], [address], [place], [address], [place]. tel:[phone] Referring Provider: Marco Antonio Parada, [address], [place], [address]. tel:[phone] Est Pt Eval Telehealth [facility], [facility], [address], [place], [place], [address], [place] tel:[phone] [facility] bilateral buttock pain (chief complaint)N samson Pain (chief complaint) Intervertebral disc disorders w radiculopathy, lumbar regionCervicalg iaParaplegia, unspecified 3 Melum Pinky. [address], [address], [place], [address], [place]. tel:[phone] Referring Provider: Marco Antonio Parada, [address], [address]. tel:[phone] Est Pt Eval Moderate [facility], [address], [place], [place], [address], [place] tel:[phone] [facility] buttock pain (chief complaint)N samson Pain (chief complaint) Intervertebral disc disorders w radiculopathy, lumbar regionCervicalg ia 3 Ketola Isamar. [address], [address], [place], [address], [place]. tel:[phone] Referring Provider: Marco Antonio Parada, [address], [address]. tel:[phone] [facility], [address], [place], [place], [address], [place] tel:[phone] [facility] No Information 3 Ketola Concho. [address], [address], [place], [place], [address], [place]. tel:[phone] Referring Provider: Marco Antonio Parada, [address], [place], [address]. tel:[phone] Est Pt Eval Telehealth [facility], [address], [place], [place], [address], [place] tel:[phone] [facility] bilateral leg pain (chief complaint)N samson Pain (chief complaint) Intervertebral disc disorders w radiculopathy, lumbar regionPain in unspecified hip 3 Ketola Isamar. [address], [address], [place], [place], [address], [place]. tel:[phone] Referring Provider: Marco Antonio Parada, [address], [address]. tel:[phone] [facility], [address], [place], [place], [address], [place] tel:[phone] [facility] Therapy Radiculopathy, lumbar regionCervicalg iaParaplegia, unspecified Jun- 3 Camila Nation. [address], [place], [address], [place]. tel:[phone] Referring Provider: Marco Antonio Parada, [address], [address]. tel:[phone] Est Pt Eval Telehealth [facility], [facility], [address], [place], [place], [address], [place] tel:[phone] [facility] bilateral neck pain (chief complaint)B shiva aches (chief complaint) Body mass index (BMI) 22.0-22.9, adultInterverte bral disc disorders w radiculopathy, lumbar regionPain in unspecified hip Jun- 3 Ketola Isamar. [address], [address], [place], [place], [address], [place]. tel:[phone] Referring Provider: Marco Antonio Parada, [address], [place], [address]. tel:[phone] Psychiatric Diagnostic Evaluation Telephone Only SOFÍA Recinos, [address], [place], [place], [address], [place] tel:[phone] [facility] Pain disorder with related psychological factors 3 Ellis Banks. [address], [address], [place], [address], [place]. tel:[phone] Referring Provider: Marco Antonio Parada, [address], [place], [address]. tel:[phone] Est Pt Eval Moderate [facility], [address], [place], [place], [address], [place] tel:[phone] [facility] Both buttocks pain (chief complaint)b ilateral neck pain (chief complaint) Body mass index (BMI) 22.0-22.9, adultInterverte bral disc disorders w radiculopathy, lumbar region 3 Brittany Riggs. [address], [address], [place], [address], [place]. tel:[phone] Referring Provider: Marco Antonio Parada, [address], [place], [address]. tel:[phone] EVERETTE Recinos, [address], [place], [place], [address], [place] tel:[phone] [facility] No Information 3 Brittany Riggs. [address], [address], [place], [address], [place]. tel:[phone] Referring Provider: Marco Antonio Parada, [address], [place], [address]. tel:[phone] [facility], [address], [place], [place], [address], [place] tel:[phone] [facility] No Information 3 Elie Cosme. [address], [place], [address], [place]. tel:[phone] Referring Provider: Ba Cardoza, [address], [place], [address]. tel:[phone] [facility], [address], [place], [address], [place] tel:[phone] [facility] back pain (chief complaint) Radiculopathy, lumbar regionRadiculop athy, lumbar region 3 [facility]. [address], [place], [place], [address], [place]. tel:[phone] Referring Provider: Ba Cardoza, [address], [place], [address]. tel:[phone] [facility], [address], [place], [place], [address], [place] tel:[phone] [facility] No Information 3 Elie Cosme. [address], [place], [address], [place]. tel:[phone] Referring Provider: Ba Cardoza, [address], [place], [address]. tel:[phone] Est Pt Eval 25 Min Telehealth [facility], [address], [place], [place], [address], [place] tel:[phone] [facility] back pain (chief complaint) Intervertebral disc disorders w radiculopathy, lumbar regionPain in unspecified hipBody mass index (BMI) 24.0-24.9, adult Apr- 3 Ketola Concho. [address], [address], [place], [address], [place]. tel:[phone] Referring Provider: Marco Antonio Parada, [address], [address]. tel:[phone] Est Pt Eval 25 Min Telehealth [facility], [address], [place], [place], [address], [place] tel:[phone] [facility] back pain (chief complaint) Intervertebral disc disorders w radiculopathy, lumbar regionPain in unspecified hipBody mass index (BMI) 24.0-24.9, adult 3 Ketola Isamar. [address], [address], [place], [address], [place]. tel:[phone] Referring Provider: Marco Antonio Parada, [address], [address]. tel:[phone] Est Pt Eval 25 Min [facility], [address], [place], [place], [address], [place] tel:[phone] [facility] bilateral neck pain (chief complaint)b ack pain (chief complaint) Body mass index (BMI) 24.0-24.9, adultInterverte bral disc disorders w radiculopathy, lumbar regionPain in unspecified hip 3 She Qiying. [address], [address], [place], [address], [place]. tel:[phone] Referring Provider: Marco Antonio Parada, [address], [place], [address]. tel:[phone] [facility], [address], [place], [place], [address], [place] tel:[phone] [facility] No Information 3 Brittany Riggs. [address], [address], [place], [address], [place]. tel:[phone] Referring Provider: Marco Antonio Parada, [address], [place], [address]. tel:[phone] [facility], [address], [place], [address], [place] tel:[phone] [facility] bilateral neck pain (chief complaint) Radiculopathy, cervical regionRadiculop athy, cervical region 3 [facility]. [address], [place], [place], [address], [place]. tel:[phone] Referring Provider: Daniel Ahser, [address], [place], [address]. tel:[phone] [facility], [address], [place], [place], [address], [place] tel:[phone] [facility] No Information 3 Lb Sanchez. [address], [place], [place], [address], [place]. tel:[phone] Referring Provider: Daniel Asher, [address], [place], [address]. tel:[phone] [facility], [facility], [address], [place], [place], [address], [place] tel:[phone] [facility] No Information 3 Lb Sanchez. [address], [place], [place], [address], [place]. tel:[phone] Referring Provider: Daniel Asher, [address], [place], [address]. tel:[phone] Est Pt Eval 25 Min Telehealth [facility], [facility], [address], [place], [place], [address], [place] tel:[phone] [facility] Gluteal pain (chief complaint) Intervertebral disc disorders w radiculopathy, lumbar regionCervicalg iaPain in legBody mass index (BMI) 23.0-23.9, adult 3 Ketola Isamar. [address], [address], [place], [place], [address], [place]. tel:[phone] Referring Provider: Marco Antonio Parada, [address], [address]. tel:[phone] Est Pt Eval 25 Min Telehealth [facility], [facility], [address], [place], [place], [address], [place] tel:[phone] [facility] Glute Pain (chief complaint) Intervertebral disc disorders w radiculopathy, lumbar regionPain in legCervicalgiaB shiva mass index (BMI) 23.0-23.9, adult 3 Ketola Concho. [address], [address], [place], [place], [address], [place]. tel:[phone] Referring Provider: Marco Antonio Parada, [address], [place], [address]. tel:[phone] Est Pt Eval 25 Min [facility], [facility], [address], [place], [place], [address], [place] tel:[phone] [facility] bilateral leg pain (chief complaint) Intervertebral disc disorders w radiculopathy, lumbar regionPain in legBody mass index (BMI) 23.0-23.9, adult 3 Ketola Isamar. [address], [address], [place], [place], [address], [place]. tel:[phone] Referring Provider: Marco Antonio Parada, [address], [place], [address]. tel:[phone] [facility], [address], [place], [place], [address], [place] tel:[phone] [facility] No Information 3 Ketola Isamar. [address], [place], [place], [address], [place]. tel:[phone] Referring Provider: Marco Antonio Parada, [address], [address]. tel:[phone] Est Pt Eval 25 Min Telehealth [facility], [address], [place], [place], [address], [place] tel:[phone] [facility] back pain (chief complaint) Intervertebral disc disorders w radiculopathy, lumbar regionPain in leg 2 She Qiying. [address], [place], [address], [place]. tel:[phone] Referring Provider: Marco Antonio Parada, [address], [address]. tel:[phone] Est Pt Eval 25 Min Telehealth [facility], [address], [place], [place], [address], [place] tel:[phone] [facility] back pain (chief complaint) Intervertebral disc disorders w radiculopathy, lumbar regionLow back pain, unspecifiedBody mass index (BMI) 25.0-25.9, adult 2 She Qiying. [address], [address], [place], [address], [place]. tel:[phone] Referring Provider: Marco Antonio Parada, [address], [place], [address]. tel:[phone] Est Pt Eval 25 Min [facility], [address], [place], [place], [address], [place] tel:[phone] [facility] bilateral hip pain (chief complaint) Body mass index (BMI) 25.0-25.9, adultInterverte bral disc disorders w radiculopathy, lumbar regionLow back pain, unspecified 2 She Qiying. [address], [address], [place], [address], [place]. tel:[phone] Referring Provider: Marco Antonio Parada, [address], [address]. tel:[phone] SOFÍA Recinos, [address], [place], [place], [address], [place] tel:[phone] [facility] No Information 2 She Qiying. [address], [address], [place], [address], [place]. tel:[phone] Referring Provider: Marco Antonio Parada, [address], [place], [address]. tel:[phone] Est Pt Eval 25 Min Telehealth [facility], [address], [place], [place], [address], [place] tel:[phone] [facility] bilateral hip pain (chief complaint) Body mass index (BMI) 25.0-25.9, adultInterverte bral disc disorders w radiculopathy, lumbar regionLow back pain, unspecified 2 She Qiying. [address], [address], [place], [address], [place]. tel:[phone] Referring Provider: Marco Antonio Parada, [address], [place], [address]. tel:[phone] Psychiatric Diagnostic Evaluation Telephone Only SO[facility] Rec[facility], [address], [place], [place], [address], [place] tel:[phone] [facility] Services Pain disorder with related psychological factors 2 Acosta Cedeñota. [address], [address], [place], [place], [address], [place]. tel:[phone] Referring Provider: Marco Antonio Parada, [address], [place], [address]. tel:[phone] Est Pt Eval 25 Min Telehealth SO[facility] Rec[facility], [address], [place], [place], [address], [place] tel:[phone] [facility] buttocks pain (chief complaint) Intervertebral disc disorders w radiculopathy, lumbar regionLow back pain, unspecifiedBody mass index (BMI) 25.0-25.9, adult 2 Brittany Tracycarmen. [address], [address], [place], [address], [place]. tel:[phone] Referring Provider: Oneil Soto, [address], [place], [address]. tel:[phone] Est Pt Eval 25 Min SOFÍA Recinos, [address], [place], [place], [address], [place] tel:[phone] [facility] buttocks pain (chief complaint) Body mass index (BMI) 25.0-25.9, adultInterverte bral disc disorders w radiculopathy, lumbar regionLow back pain, unspecified 2 Brittany Riggs. [address], [address], [place], [address], [place]. tel:[phone] Referring Provider: Oneil Soto, [address], [place], [address]. tel:[phone] [facility], [address], [place], [place], [address], [place] tel:[phone] [facility] No Information 2 Brittany Riggs. [address], [address], [place], [address], [place]. tel:[phone] Referring Provider: Oneil Soto, [address], [place], [address]. tel:[phone] [facility], [address], [place], [place], [address], [place] tel:[phone] [facility] No Information 2 Lb Sanchez. [address], [address], [place], [place], [address], [place]. tel:[phone] Referring Provider: Daniel Asher, [address], [place], [address]. tel:[phone] [facility], [address], [place], [address], [place] tel:[phone] [facility] back pain (chief complaint) Radiculopathy, lumbar regionRadiculop athy, lumbar region 2 [facility]. [address], [place], [place], [address], [place]. tel:[phone] Referring Provider: Daniel Asher, [address], [place], [address]. tel:[phone] Est Pt Eval 25 Min Telehealth [facility], [facility], [address], [place], [place], [address], [place] tel:[phone] [facility] buttocks (chief complaint) Intervertebral disc disorders w radiculopathy, lumbar regionBody mass index (BMI) 25.0-25.9, adultCervicalgi aOpioid dependence, uncomplicated 2 She Oneil. [address], [address], [place], [address], [place]. tel:[phone] Referring Provider: Marco Antonio Parada, [address], [address]. tel:[phone] Est Pt Eval 25 Min [facility], [address], [place], [place], [address], [place] tel:[phone] [facility] Glutes, leg, feet (chief complaint) Pain in legRadiculopath y, lumbar regionBody mass index (BMI) 25.0-25.9, adult February- 2 She Qiying. [address], [address], [place], [address], [place]. tel:[phone] Referring Provider: Oneil Soto, [address], [place], [address]. tel:[phone] [facility], [address], [place], [place], [address], [place] tel:[phone] [facility] [place] No Information 2 Tal Crain. [address], [place], [place], [address], [place]. tel:[phone] Referring Provider: Marco Antonio Parada, [address] [facility] [address], [address]. tel:[phone] [facility], [address], [facility] [address], [place], [address], [place] tel:[phone] [facility] back pain (chief complaint) Radiculopathy, lumbar regionOther intervertebral disc degeneration, lumbar regionLow back pain, unspecifiedOpio id dependence, uncomplicated 2 [facility]. [address] [facility] [address], [place], [address], [place]. tel:[phone] Referring Provider: Paras Mckinley, [address], [place], [address]. tel:[phone] Est Pt Eval 25 Min [facility], [address], [address], [place] tel:[phone] [facility] back pain (chief complaint) Encounter for adjustment and management of infusion pumpLow back pain, unspecified 2 Tal Bernard. [address] [facility] [address], [place], [address], [place]. tel:[phone] Referring Provider: Marco Antonio Parada, [address] [facility] [address], [address]. tel:[phone] [facility], [address] [facility] [address], [place], [address], [place] tel:[phone] [facility] No Information 2 Dylan Dumont. [address] [facility] [address], [place], [address], [place]. tel:[phone] Referring Provider: Paras Mckinley, [address], [place], [address]. tel:[phone] Est Pt Eval 25 Min Telehealth [facility], [facility], [address], [place], [place], [address], [place] tel:[phone] [facility] back pain (chief complaint) Intervertebral disc disorders w radiculopathy, lumbar regionParaplegi aRadiculopathy, cervical regionBody mass index (BMI) 25.0-25.9, adult 2 She Oneil. [address], [address], [place], [address], [place]. tel:[phone] Referring Provider: Oneil Soto, [address], [place], [address]. tel:[phone] Est Pt Eval 25 Min [facility], [facility], [address], [place], [place], [address], [place] tel:[phone] [facility] back pain (chief complaint) Intervertebral disc disorders w radiculopathy, lumbar regionParaplegi aRadiculopathy, cervical regionBody mass index (BMI) 26.0-26.9, adult Jan- 2 She Oneil. [address], [address], [place], [address], [place]. tel:[phone] Referring Provider: Oneil Soto, [address], [place], [address]. tel:[phone] [facility], [address], [place], [place], [address], [place] tel:[phone] [facility] Physical Therapy Paraplegia, unspecifiedRadi culopathy, lumbar region Apr- 2 Camila Nation. [address], [place], [address], [place]. tel:[phone] Referring Provider: Chapis Jensen, [address], [place], [address]. tel:[phone] [facility], [address], [place], [place], [address], [place] tel:[phone] [facility] No Information 2 Brittany Tracycarmen. [address], [address], [place], [address], [place]. tel:[phone] Referring Provider: Oneil Soto, [address], [place], [address]. tel:[phone] Est Pt Eval 25 Min Telehealth [facility] Rec[facility], [address], [place], [place], [address], [place] tel:[phone] [facility] Glute pain (chief complaint)b ilateral knee pain (chief complaint) Intervertebral disc disorders w radiculopathy, lumbar regionPain in legParaplegiaPo stlaminectomy syndrome, not elsewhere classifiedLong term (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 analgesicBody mass index (BMI) 26.0-26.9, adult 2 Brittany Tracycarmen. [address], [address], [place], [address], [place]. tel:[phone] Referring Provider: Oneil Brittany, [address], [place], [address]. [phone] EVERETTE Rec[facility], [address], [place], [place], [address], [place] tel:[phone] [facility] Other specified complications of surgical and medical care, not elsewhere classified, initial encounterPostla minectomy syndrome, not elsewhere classified 2 Tal Crain. [address], [place], [place], [address], [place]. tel:[phone] Referring Provider: Oneil Brittany, [address], [place], [address]. tel:[phone] Est Pt Eval 25 Min Telehealth [facility], [facility], [address], [place], [place], [address], [place] tel:[phone] [facility] bilateral leg pain (chief complaint) Radiculopathy, lumbar regionPain in legPostlaminect sofi syndrome, not elsewhere classifiedLong term (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 analgesicInfect ion and inflammatory reaction due to other nervous system device, implant or graft, initial encounter 2 Brittany Riggs. [address], [address], [place], [address], [place]. tel:[phone] Referring Provider: Oneil Soto, [address], [place], [address]. tel:[phone] [facility], [address], [place], [place], [address], [place] tel:[phone] [facility] back pain (chief complaint) Infection and inflammatory reaction due to other nervous system device, implant or graft, initial encounter 2 RN RN. [address], [address], [place], [place], [address], [place]. tel:[phone] Referring Provider: REFERRAL NINO LAUREN. Est Pt Eval 25 Min Telehealth [facility], [address], [place], [place], [address], [place] tel:[phone] [facility] back pain (chief complaint) Intervertebral disc disorders w radiculopathy, lumbar regionLong term (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 analgesic 2 Brittany Riggs. [address], [address], [place], [address], [place]. tel:[phone] Referring Provider: Oneil Soto, [address], [place], [address]. tel:[phone] [facility], [address], [place], [address], [place] tel:[phone] [facility] Radiculopathy, lumbar regionOther intervertebral disc degeneration, lumbar regionLow back pain, unspecifiedOpio id dependence, uncomplicated 2 [facility]. [address], [place], [place], [address], [place]. tel:[phone] Referring Provider: Paras Mckinley, [address], [place], [address]. tel:[phone] [facility], [facility], [address], [place], [place], [address], [place] tel:[phone] [facility] No Information 2 Tal Crain. [address], [place], [place], [address], [place]. tel:[phone] Referring Provider: Marco Antonio Parada, [address], [place], [address]. tel:[phone] [facility], [address], [place], [place], [address], [place] tel:[phone] [facility] No Information 2 Dylan Dumont. [address], [place], [address], [place]. tel:[phone] Referring Provider: Paras Mckinley, [address], [place], [address]. tel:[phone] [facility], [facility], [address], [place], [place], [address], [place] tel:[phone] [facility] Other specified complications of surgical and medical care, not elsewhere classified, initial encounter 2 Tal Crain. [address], [place], [place], [address], [place]. tel:[phone] Referring Provider: NINO JONES. [facility], [address], [place], [address], [place] tel:[phone] [facility] aspiration (chief complaint) Other specified complications of surgical and medical care, not elsewhere classified, initial encounter 2 [facility]. [address], [place], [place], [address], [place]. tel:[phone] Referring Provider: Ba Cardoza, [address], [place], [address]. tel:[phone] [facility], [facility], [address], [place], [place], [address], [place] tel:[phone] [facility] No Information 2 Elie Cosme. [address], [place], [address], [place]. tel:[phone] Referring Provider: Ba Cardoza, [address], [place], [address]. tel:[phone] Est Pt Eval 25 Min [facility], [facility], [address], [place], [place], [address], [place] tel:[phone] [facility] buttocks (chief complaint) Intervertebral disc disorders w radiculopathy, lumbar regionParaplegi aPostlaminectom y syndrome, not elsewhere classifiedEncou nter for adjustment and management of infusion pumpInterverteb ral disc disorders w radiculopathy, lumbar region 2 Veena Funez. [address], [address], [place], [address], [place]. tel:[phone] Referring Provider: Marco Antonio Parada, [address], [place], [address]. tel:[phone] Est Pt Eval 25 Min [facility], [address], [place], [place], [address], [place] tel:[phone] [facility] Pump Visit (chief complaint) Body mass index (BMI) 26.0-26.9, adultInterverte bral disc disorders w radiculopathy, lumbar regionParaplegi aPostlaminectom y syndrome, not elsewhere classifiedEncou nter for adjustment and management of infusion pumpInterverteb ral disc disorders w radiculopathy, lumbar region 1 Burke Osullivan. [address], [place], [address], [place]. tel:[phone] Referring Provider: Marco Antonio Parada, [address] [facility] [address], [address]. tel:[phone] Est Pt Eval 25 Min [facility], [address], [place], [address], [place] tel:[phone] [facility] Body aches (chief complaint) Body mass index (BMI) 26.0-26.9, adultPostlamine ctomy syndromeInterve rtebral disc disorders w radiculopathy, lumbar regionEncounter for adjustment and management of infusion pumpPostlaminec francisco syndrome, not elsewhere classified 1 Burke Osullivan. [address], [place], [address], [place]. tel:[phone] Referring Provider: Marco Antonio Parada, [address], [address]. tel:[phone] [facility], [address], [place], [address], [place] tel:[phone] [facility] No Information 1 Burke Osullivan. [address], [place], [place], [address], [place]. tel:[phone] Referring Provider: Marco Antonio Parada, [address], [place], [address]. tel:[phone] Est Pt Eval 25 Min Telehealth [facility], [facility], [address], [place], [place], [address], [place] tel:[phone] [facility] pelvic pain (chief complaint) Radiculopathy, cervical regionLow back pain, unspecifiedLong term (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 analgesicRadicu lopathy, lumbar regionBody mass index (BMI) 26.0-26.9, adult 1 Veena Funez. [address], [place], [address], [place]. tel:[phone] Referring Provider: Dee Dee Curiel, [address], [place], [address]. tel:[phone] [facility], [address], [place], [place], [address], [place] tel:[phone] [facility] No Information 1 Elie Cosme. [address], [place], [address], [place]. tel:[phone] Referring Provider: Ba Cardoza, [address], [address]. tel:[phone] [facility], [address], [place], [address], [place] tel:[phone] [facility] back pain (chief complaint) Radiculopathy, lumbar regionOther intervertebral disc degeneration, lumbar regionLow back pain, unspecifiedOpio id dependence, uncomplicated 1 [facility]. [address], [place], [place], [address], [place]. tel:[phone] Referring Provider: Paras Mckinley, [address], [place], [address]. tel:[phone] Est Pt Eval 25 Min [facility], [address], [place], [place], [address], [place] tel:[phone] [facility] Postlaminectomy syndrome 1 Tal Bernard. [address], [place], [place], [address], [place]. tel:[phone] Referring Provider: Marco Antonio Parada, [address], [place], [address]. tel:[phone] Est Pt Eval 25 Min [facility], [address], [place], [place], [address], [place] tel:[phone] [facility] back pain (chief complaint) Body mass index (BMI) 26.0-26.9, adultOther intervertebral disc degeneration, lumbar regionLow back pain, unspecifiedCerv icalgia 1 Nahun Fields. [address], [place], [address], [place]. tel:[phone] Referring Provider: Donnie Garnica, [address], [place], [address]. tel:[phone] [facility], [address], [place], [place], [address], [place] tel:[phone] [facility] back pain (chief complaint) Other intervertebral disc degeneration, lumbar region 1 RN RN. [address], [place], [place], [address], [place]. tel:[phone] Referring Provider: TYRA LAUREN, NINO. [facility], [address], [place], [address], [place] tel:[phone] [facility] back pain (chief complaint) Radiculopathy, lumbar regionOther intervertebral disc degeneration, lumbar regionLow back pain, unspecifiedOpio id dependence, uncomplicatedRa diculopathy, lumbar regionOther intervertebral disc degeneration, lumbar regionLow back pain, unspecifiedOpio id dependence, uncomplicated 1 [facility]. [address], [place], [place], [address], [place]. tel:[phone] Referring Provider: Ba Cardoza, [address], [place], [address]. tel:[phone] [facility], [facility], [address], [place], [place], [address], [place] tel:[phone] [facility] No Information 1 Blas Houston. [address] [place], [place], [address], [place]. tel:[phone] Referring Provider: Ba Cardoza, [address], [address]. tel:[phone] [facility], [facility], [address], [place], [place], [address], [place] tel:[phone] [facility] No Information 1 Elie Cosme. [address], [place], [address], [place]. tel:[phone] Referring Provider: Ba Cardoza, [address], [address]. tel:[phone] [facility], [facility], [address], [place], [place], [address], [place] tel:[phone] [facility] back pain (chief complaint) Other intervertebral disc degeneration, lumbar region 1 RN RN. [address] [facility] [address], [place], [place], [address], [place]. tel:[phone] Referring Provider: NINO JONES. [facility], [address] [facility] [address], [place], [place], [address], [place] tel:[phone] [facility] No Information 1 Tal Crain. [address], [place], [place], [address], [place]. tel:[phone] Referring Provider: Paras Mckinley, [address], [place], [address]. tel:[phone] [facility], [address] [facility], [place], [address], [place] tel:[phone] [facility] back pain (chief complaint) Radiculopathy, lumbar regionOther intervertebral disc degeneration, lumbar regionLow back pain, unspecifiedRadi culopathy, lumbar regionOther intervertebral disc degeneration, lumbar regionLow back pain, unspecified 1 [facility]. [address] [facility] [address], [place], [place], [address], [place]. tel:[phone] Referring Provider: Paras Mckinley, [address], [place], [address]. tel:[phone] [facility], [address] [facility] [address], [place], [place], [address], [place] tel:[phone] [facility] No Information 1 Luis Angel Garcias. [address], [place], [place], [address], [place]. tel:[phone] Referring Provider: Paras Mckinley, [address], [place], [address]. tel:[phone] Est Pt Eval 25 Min Telehealth [facility], [address], [place], [place], [address], [place] tel:[phone] [facility] back pain (chief complaint) Low back pain, unspecifiedRadi culopathy, lumbar region Oct-0 1 Nahun Fields. [address], [place], [address], [place]. tel:[phone] Referring Provider: Donnie Garnica, [address], [place], [address]. tel:[phone] Est Pt Eval 25 Min [facility], [address], [place], [place], [address], [place] tel:[phone] [facility] Body aches (chief complaint) CervicalgiaRadi culopathy, lumbar regionLong term (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 analgesicPostla minectomy syndrome Sep-0 1 Blade Lnadrum. [address], [place], [address], [place]. tel:[phone] Referring Provider: Lucita Murguia, [address], [place], [address]. tel:[phone] [facility], [address], [place], [place], [address], [place] tel:[phone] [facility] CervicalgiaLow back pain Sep-0 1 RN RN. [address], [place], [place], [address], [place]. tel:[phone] Referring Provider: Jocelyn Corral, [address], [place], [address]. tel:[phone] Psychiatric Diagnostic Evaluation [facility], [address], [place], [place], [id number], [place] tel:[phone] [facility] Wellness Services Pain disorder with related psychological factors 1 Ellis Banks. [address], [place], [address], [place]. tel:[phone] Referring Provider: Jocelyn Mayberryis, [address], [place], [address]. tel:[phone] New Pt Eval 45 Min Jor[facility], [address], [place], [place], [id number], [place] tel:[phone] [facility] Not Listed (chief complaint)b ack pain (chief complaint) CervicalgiaLow back painRadiculopat hy, lumbar regionLong term (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 analgesicParapl egiaBipolar disorder, unspecifiedRadi culopathy, cervical regionPostlamin ectomy syndromeBody mass index (BMI) 26.0-26.9, adult 1 Tal Crain. [address], [place], [place], [address], [place]. tel:[phone] Referring Provider: Marco Antonio Parada, [address] [facility] [address], [place], [address]. tel:[phone] EVERETTE Recinos, [address] [facility] [address], [place], [place], [id number], [place] tel:[phone] [facility] No Information 4 Bellophillip Ly. [address] [facility] [address], [place], [address], [place]. tel:[phone] Referring Provider: TYRA LAUREN, NINO. SOFÍA Recinos, [address] [facility] [address], [place], [place], [address], [place] tel:[phone] [facility] No Information 4 Ra Caldwell. [address] [place], [address], [place]. tel:[phone] Referring Provider: Jorge Alberto Mayorga DDS, [address], [place], [address]. tel:[phone] J[facility], [address], [place], [place], [address], [place] tel:[phone] [facility] No Information Dec- 0-200 3 Tal Crain. [address], [place], [place], [address], [place]. tel:[phone] Referring Provider: Stef Mayorga MD, [address] [facility] [address], [place], [address]. tel:[phone] Family History Family Member Type Diagnosis Age At Onset No Information Payers Payer name Insurance type Covered constitution party ID Authoriza tion(s) Medicare Part B [id number] Medical Assistance [facility] [id number] Social History Type Description Quantity Date Captured Comments Alcohol Use Details No Caffeine Use Details coffee Tobacco Use Status Moderate cigarette smoker (10-19 cigs/day) Smoking Status Current every day smoker Smoking Tobacco Use Details Cigarette: No Details Available Cigarette: 0.75 Packs per day Sex Male Vital Signs Date / Time: Height Weight BMI Pulse Rate Blood Pressure Temperature Respiratory Rate Body Surface Area Head Circumference Head Circ. Percentile Wt./William. Percentile BMI percentile Pulse Ox Inhaled Ox 8:47 AM 72.00 in 82.554 kg (182.00 lbs) 24.6 8 kg/m eter (2) 2.05 meter(2) Chief Complaint And Reason For Visit From encounter dated '05/11/2024 09:00'. lower back pain (chief complaint). Description: The pain is located in the low back on both sides. The pain radiates into the both feet.The lower back pain radiates into the both legs. The pain pattern also includes the neck. Pain intensity is currently 7/10.The pain has been worsening . The following activities make the pain worse: none. The following activities make the pain better: pain medication. Reason For Referral Reason For Referral No [...] Recs: Telehealth Visit - Dr. Wells at [facility] ordered Referral Referred To: lumbar epidural steroid injection Ordered: lumbar epidural steroid injection L5-S1 ordered Referral Ordered: Infectious Disease (related to Other specified complications of surgical and medical care, not elsewhere classified, initial encounter) ordered Referral Ordered: Infectious Disease (related to Infection and inflammatory reaction due to other nervous system device, implant or graft, initial encounter) ordered Referral Referred To: [facility]
[address] [place] [address], [phone] Ordered: Referrals: Infectious Disease. Evaluate and treat ordered Referral Referred To: Physical Therapy Ordered: Physical Therapy. Evaluate and treat ordered Referral Ordered: Referrals: Behavioral Health ordered Referral Ordered: spinal cord stimulation ordered Referral Referred To: cervical epidural steroid injection Ordered: cervical epidural steroid injection on both sides C6-7 ordered Referral Referred To: Physical Therapy Ordered: Physical Therapy ordered Appointment Ariel Muller BOOKED Future Order: Lab Order Confirma tory Urine [...] MR I - Cervical Spine W/O Contrast ([id number]), Ordered on: Ordered History Of Present Illness Encounter Date Complaint History Of Prese nt Illness lower back pain The pain is loca samantha in the low back on both sides. The pain radiates into the both feet.The lower back pain radiates into the both legs. The pain pattern also includes the neck. Pain intensity is currently 7/10.The pain has been worsening . The following activities make the pain worse: none. The following activities make the pain better: pain medication. lower back pain The pain is loca samantha in the low back on both sides. The lower back pain radiates into the both legs. Pain intensity is currently 9/10.The pain has been stable . The pain is described as burning and throbbing. The following activities make the pain better: pain medication. lower back pain The pain is loca samantha in the low back on both sides. The lower back pain radiates into the both legs. Pain intensity is currently 8/10.The pain is described as aching and throbbing. neck pain The pain is loca samantha in the posterior neck on both sides. back pain Location of pain is lower back. Pain is radiated to the left calf, right calf, left foot, right foot, left thigh and right thigh. The patient describes the pain as an ache and throbbing.The patient denies aggravating factors. The patient denies relieving factors. Neck Pain Location of pain is bilateral lateral neck and bilateral posterior neck. The patient describes the pain as Aching and Throbbing. Denies aggravating factors. Denies relieving factors. neck pain The problem has not changed. [...] Aching, Throbbing. Pain radiates to bilateral toes bilateral buttock pain Patient r eports bilateral [...] analgesics and rest. Pertinent negatives include rash. Neck Pain The severity of the problem [...] The pain radiates to the ABHISHEK toes. Both buttocks pain Relieving fac tors include Pain meds/drugs. Associated symptoms include Exploding, Pulling. Pain is radiating to legs and feet. bilateral neck pain Associated s ymptoms include Throbbing, Needle-like. back pain Location of pain is lower [...] bed and twisting.The patient denies relieving factors. Glute pain bilateral knee pain Location: bi lateral knee. The pain is burning. The pain is aggravated by movement. The pain is relieved by pain/RX meds. bilateral leg pain Location: abhishek ateral buttocks, [...] Listed Functional Status Date Functional Assessmen t Pain Score 7/10 Instructions Date Instruction Additional Infor lewakilah - Continue to monito r pain relief from cervical epidural steroid injection, can repeat every 3 months as needed Related to Cervicalgia - Schedule bilateral transforaminal lumbar epidural steroid injection at L5-S1, insurance has approved- Continue Buprenorphine 2mg 4x/day- Continue Fentanyl Patch 25mcg- Continue Gabapentin 600mg 2 pills 3x/day and Baclofen as prescribed by outside provider- Consider reimplanting pain pump- Follow up with Oneil Soto MACHINE LEAD BURNER-C in 4 weeks, telehealth ok 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, lumbar region - Schedule bilateral transforaminal lumbar epidural steroid injection at L5-S1, insurance has approved- Refill and continue Buprenorphine 2mg 4x/day, for fill 05/10/24- Refill and continue Fentanyl Patch 25mcg, for fill 05/10/24- Continue Gabapentin 600mg 2 pills 3x/day and Baclofen as prescribed by outside provider- Consider reimplanting pain pump- Follow up with Oneil Soto NP-C in 5-6 weeks, telehealth ok 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, lumbar region - Continue to monito r pain relief from cervical epidural steroid injection, can repeat every 3 months as needed Related to Cervicalgia - Continue to monito r pain relief from cervical epidural steroid injection, can repeat every 3 months as needed Related to Cervicalgia - Ordered bilateral transforaminal lumbar epidural steroid injection at L5-S1*[facility] will call to schedule once insurance approves, if you don't hear back in a week call [phone]- Refill and continue Buprenorphine 2mg 4x/day, for fill 04/10/24- Refill and continue Fentanyl Patch 25mcg, for fill 04/10/24- Continue Gabapentin 600mg 2 pills 3x/day and Baclofen as prescribed by outside provider- Consider reimplanting pain pump- Follow up with Oneil Soto MACHINE LEAD BURNER-C in 1 month, in CLINIC 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, lumbar region - Follow up in the clinic Relate d to Radiculopathy, cervical region - Keep cervical epid ural steroid injection as scheduled 03/17/24 Related to Cervicalgia - Refill and continu e Buprenorphine 2mg 4x/day, for fill 03/11/24- Refill and continue Fentanyl Patch 25mcg, for fill 03/11/24- Continue Gabapentin 600mg 2 pills 3x/day and Baclofen as prescribed by outside provider- Consider reimplanting pain pump- Follow up with advanced practice provider in 1 month, telehealth ok Related to [...] disorders w radiculopathy, lumbar region - Schedule cervical epidural steroid injection- has been approved. You can call to schedule this any time. Related to Cervicalgia Schedule cervical ep idural steroid injection- has [...] Request medical records from Dr. Wells at [facility]- Follow up in 1 month, telehealth ok 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, lumbar region - Refill and continu e Buprenorphine 2mg 4x/day. Fill 07/31/23- Refill and continue Fentanyl Patch 25mcg. Fill 07/31/23- Continue Gabapentin and Baclofen as prescribed by outside provider- Request medical records from Dr. Wells at [facility]- Follow up in 1 [...] physician for pain pump re-implantSend records to J[facility] - Follow up in 1 month via [...] physician for pain pump re[facility]plant[facility] -Continue antibiotics as prescribed for UTI- Follow [...] clearance for pain pump re-implantSend records to [facility] after appointment has been completedIf not interested in pain pump consider care with [facility].- Follow up in 4 weeks IN [...] clearance for pain pump re-implantSend records to [facility] after appointment has been completedIf not interested in pain pump consider care with [facility].- Follow up in one month via [...] today's injection Related to Radiculopathy, cervical region -Ordered Transforami nal Lumbar Epidural Steroid Injection [...] disc disorders w radiculopathy, lumbar region - Keep scheduled Cer vical Epidural Steroid [...] injection is not helpful Related to Cervicalgia - Refill and continu [...] Body mass index [BMI] 23.0-23.9, adult - Refill and continu e Buprenorphine [...] Body mass index [BMI] 23.0-23.9, adult - Refill and continu e Buprenorphine [...] 72 hours, #10 for 30-day supply. Fill today, 09/18- Continue Gabapentin as prescribed by outside provider- Continue Baclofen as prescribed by outside provider- Follow up with infectious disease physician for clearance before re-implant IT pain pump- Continue following up with surgeon and computer training specialist- Follow up in one month via telehealth 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, lumbar region Same plan of care as statement for above diagnosis, no changes Related to Low back pain, unspecified Giving encouragement to exercise Related to Body mass index [BMI] 25.0-25.9, adult - Refill and continu e Buprenorphine 2mg up tot 4x/day. Fill on 08/25/22- Prescribe Fentanyl 25mcg patch every 72 hours, #10 for 30-day supply. Fill on 08/19/22- Continue Gabapentin as prescribed by outside provider- Continue Baclofen as prescribed by outside provider- Sign release of information for medical records from [facility] in [place] to be sent to [facility]- Follow up with infectious disease physician for clearance before re-implant IT pain pump- Continue following up with surgeon and computer training specialist- Follow up in one month via telehealth 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, lumbar region Same plan of care as statement for above diagnosis, no changes Related to Low back pain, unspecified Lifestyle education regarding di et Related to Body mass index [BMI] 25.0-25.9, adult - Refill and increas e Buprenorphine 2mg [...] to Body mass index [BMI] 25.0-25.9, adult -Refill and continue Buprenorphine 2mg 3x/day #90 for 30 day supply for fill today-Schedule annual behavorial health appointment via telehealth-Continue taking Gabapentin 600mg [...] -Follow up in one month with BREANNE, [place] Related to Intervertebral disc disorders w [...] steroid injection-Obtain records from Dr. Wells at [facility]-Follow up in one month with BREANNE in [...] site-Follow up with infectious disease provider at [facility] for MRAS treatment-Follow up in one [...] above diagnosis, no changes Related to Paraplegia Consider cervical ep idural steroid injection once infection cleared up Related to Radiculopathy, cervical region Giving encouragement to exercise Related to [...] for above diagnosis, no changes Related to snf (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 analgesic Same plan [...] to Body mass index [BMI] 26.0-26.9, adult -Refill and continue [place] 20mcg/hr patch, for fill on 12/10/21-Schedule annual physical Therapy appt.-Follow up in 4 weeks via telehealth Related to Radiculopathy, lumbar region -Follow up with [facility] Related to Infection and inflammatory reaction due to other nervous system device, implant or graft, initial encounter Same plan of care as statement for above diagnosis, no changes Related to snf (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 analgesic Same plan of care as statement for above diagnosis, no changes Related to Postlaminectomy syndrome, not elsewhere classified Same plan of care as statement for above diagnosis, no changes Related to Pain in leg Keep taking antibiot ics till gone. Follow up with infections disease for clearance for re-plant spinal cord stimulator. Call with any questions. Related to Infection and inflammatory reaction due to other nervous system device, implant or graft, initial encounter -Continue [place] 5-32 5mg, 1-2 tabs, 4-6x/day as needed for post-surgical pain-Continue Bactrim oral antibiotic as prescribed on 11/08/2021 -Refill and continue Butrans 20mcg/hr patch as prescribed, change every 4 days, for fill on 11/12/2021-Follow up as scheduled 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, lumbar region Same plan of care as statement for above diagnosis, no changes Related to snf (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 analgesic Follow up in the [facility]i [facility] as needed.Order CBC, BMP, CRP, Culture and sensitivity of the aspirated fluid.Continue the oral antibiotics started by his PCP.Tablet Bactrim 800 mg twice daily for 5 days. Related to Other specified complications of surgical and medical care, not elsewhere classified, initial encounter Same plan of care as statement for above diagnosis, no changes Related to Encounter for adjustment and management of infusion pump Same plan of care as statement for above diagnosis, no changes Related to Postlaminectomy syndrome, not elsewhere classified Same plan of care as statement for above diagnosis, no changes Related to Paraplegia -Continue Butrans 15mcg/hr Relat ed to Intervertebral disc disorders w radiculopathy, lumbar region - Reprogram increase in [place] Fentanyl by [...] to Body mass index (BMI) 26.0-26.9, adult Lifestyle education regarding di et Related to [...] for above diagnosis, no changes Related to snf (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 analgesic Weight-reducing diet [...] above diagnosis, no changes Related to Cervicalgia Follow up for the du ration of the trial as scheduled. 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 -Continue with outside Physical Therapy, release records to [facility]-Follow up in one month -UDT done at today's visit Related to Cervicalgia Same plan of care as statement for above diagnosis, no changes Related to Postlaminectomy syndrome Same plan of care as statement for above diagnosis, no changes Related to Postlaminectomy syndrome - order MRI of the c ervical spine [facility]- give literature on implantable devices- schedule cervical [...] for above diagnosis, no changes Related to snf (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 analgesic Same plan of care as statement for above diagnosis, no changes Related to Radiculopathy, lumbar region Prescribed activity/ exercise education Related to Body mass index [BMI] 26.0-26.9, adult Dietary needs education Related to Body mass index [BMI] 26.0-26.9, adult Assessments Type Assessment Date assessment Intervertebral disc disorders w radiculopathy, lumbar region impression Patient has persiste nt low back pain that radiates to bilateral legs. Previously ordered TF LESI approved by insurance. He reports he has some pressure sores on his buttocks and would like to wait until these have healed. He is planning to schedule within the next month. Patient reports he is still considering reimplant of ITPP but would like to hold off at this time. Patient is prescribed Buprenorphine 2mg 4x/day and Fentanyl 25mcg patch. Denies side effects and reports pain relief. Medication is picked up and managed by facility patient is living at. No refill needed today, refilled on 05/10/24.Patient is on Gabapentin 600mg 2 pills 3x/day and Baclofen from outside provider assessment Cervicalgia impression Patient reports pers istent neck pain.Patient had INGA C4-5 on 03/17/24 and reports >50% pain relief for about 3 months Patient Care Teams Name Effective Dates (start - stop) Status Members No Information
== END 2024-05-25 09:52 | disposition home or self-care (01) ==
PROVIDERS: PCP Family Medicine; Visit Provider Family Medicine
DX: E78.5 Hyperlipidemia, unspecified (principal); E55.9 Vitamin D deficiency, unspecified; G82.20 Paraplegia, unspecified; K21.9 Gastro-esophageal reflux disease without esophagitis; S81.801A Unspecified open wound, right lower leg, initial encounter
CPT/HCPCS: 80048; 80061; 82306; 85025

== ENCOUNTER 2024-06-09 07:53 | Outpatient (CLI) | payer MEDICARE, MEDICAID, SELFPAY ==
--- OUTSIDE RECORDS SUMMARY | 2024-06-09 07:56 | XMS_ITS | Referral Summary ---
Author Organization [place] Address [address] [place] [address] Care Team Providers Care Neuropsychology Service Director Name Role Phone Paras Aguilar MD Primary [...] Advance Directives For more information, please contact: [phone] * Full Code (Latest Code Status on File) Date Activated Date Inactivated Comments 02/09/2018 9:11 AM * Full Code Date Activated Date Inactivated Comments 02/05/2018 5:50 PM 02/09/2018 9:11 AM Care Teams Neuropsychology Service Director Relationship Specialty Start Date End Date Paras Aguilar MD PCP - General Family Practice 11/03/17
--- OUTSIDE RECORDS SUMMARY | 2024-06-09 07:56 | XMS_ITS | Clinical Summary ---
Author Organization [employer] [facility] Address [place], [place] [address] Care Team Providers Care Cnc Field Service Engineer Name Role Phone Paras Aguilar MD Primary [...] ogenic bladder As directed 1 Each. 20 sinhala catheter. 4 Kit 3 08/24/2018 Active medication [...] supply miscIndications:Tyler rogenic bladder As directed. 20 Syriac urinary indwelling catheter. Change monthly. 1 Each [...] bed. Length of need 99 months. Bed child caregiver:no 1 unit 02/24/2019 Active durable medical equipment [...] spry nasal sprayIndications:Op ioid use Inhale 1 [place] in the nostril(s) one time if needed [...] Controlled substance agreement signed 02/17/2019 03/14/2021 Overview: [facility] Medical marijuana use 06/11/20162017 Overview: Karla [...] this topic Medical Devices Implanted Type Area Laboratory Phlebotomist Device Identifier Shelf Expiration Date Model / Serial / Lot [id number] - [id number] Implanted:Qty: 1 on 09/23/2018 by Clifton Tomlin MD at [facility] Left: Hip [employer] 06/26/2022 [id number] / / [id number] Description:Gamma Long nail [id number] - [id number] Implanted:Qty: 1 on 09/23/2018 by Clifton Tomlin MD at [facility] Left: Hip [employer] 12/24/2022 [id number] / / [id number] Description:Gamma Lag screw [id number] - [id number] Implanted:Qty: 1 on 09/23/2018 by Clifton Tomlin MD at [facility] Left: Hip [employer] 04/25/2023 [id number] / / [id number] Description:Locking screw Procedures Procedure Name Priority Date/Time Associated Diagnosis Comments LIPID PANEL W REFLEX MEASURED LDL Routine 10/11/2016 4:35 PM SHELF STOCKER Routine general medical examination at a health care facility from Last 3 Months or Most Recently Relevant to Health Maintenance Results * LIPID PANEL W REFLEX MEASURED LDL (10/11/2016 4:35 PM SHELF STOCKER) CHOLESTEROL,TOTAL 168 100 - 199 mg/dL 10/11/2016 7:37 PM SHELF STOCKER [facility] TRIGLYCERIDES 108 <150 mg/dL 10/11/2016 7:37 PM SHELF STOCKER [facility] HDL CHOLESTEROL 42 >40 mg/dL 6 7:37 PM SHELF STOCKER [facility] NON-HDL CHOLESTEROL 126 <145 mg/dl 10/11/2016 7:37 PM [facility] CHOL/HDL RATIO 4.00 <4.50 10/11/2016 7:37 PM SHELF STOCKER [facility] LDL CHOLESTEROL 104 <=130 mg/dL 10/11/2016 7:37 PM SHELF STOCKER [facility] PATIENT STATUS NOT GIVEN 10/11/2016 7:37 PM SHELF STOCKER [facility] Blood BLOOD SPECIMEN / Unknown Butterfly / Unknown 10/11/2016 4:35 PM SHELF STOCKER 10/11/2016 4:35 PM SHELF STOCKER Paras Aguilar MD CHEMISTRY [facility] [address] [place] [address] from Last 3 Months or Most Recently [...] 12 months since positive culture): resides in acute/alf care, receiving hemodialysis, has chronic open wounds/skin damage, has long-term percutaneous indwelling medical devices. Exclusions for nares collection (if <12 months since positive culture) include all of the previous exclusions plus patients on antibiotics 7 days prior to collection. 05/12/2021 02/28/2022 Advance Directives Documents on File Type Date Recorded Patient Leadership Program Intern Expl anation Power of Plant Guide 09/19/2017 12:00 PM 01/25 04/28 Healthcare Directive [...] Code Status Discussion: Not Discussed Care Teams Cnc Field Service Engineer Relationship Specialty Start Date End Date Paras Aguilar MD [address] [place] [address] PCP - General Family Practice 09/14/[address] [facility] Registered Nurse 11/05/17 [employer] Eligibility Assistant 12/26/17
--- OUTSIDE RECORDS SUMMARY | 2024-06-09 07:56 | XMS_ITS | Clinical Summary ---
Author Organization [place] Address [address] [place] [address] Care Team Providers Care Lamp Cleaner Street Light Name Role Phone Paras Aguilar MD Primary [...] Advance Directives For more information, please contact: [phone] * Full Code (Latest Code Status on File) Date Activated Date Inactivated Comments 02/09/2018 9:11 AM * Full Code Date Activated Date Inactivated Comments 02/05/2018 5:50 PM 02/09/2018 9:11 AM Care Teams Lamp Cleaner Street Light Relationship Specialty Start Date End Date Paras Aguilar MD PCP - General Family Practice 11/03/17
== END 2024-06-09 07:54 | disposition home or self-care (01) ==
LOC: WOUND 07:54
PROVIDERS: PCP Family Medicine; Visit Provider Physician Assistant
DX: I89.0 Lymphedema, not elsewhere classified (principal); L97.512 Non-pressure chronic ulcer of other part of right foot with fat layer exposed; L97.521 Non-pressure chronic ulcer of other part of left foot limited to breakdown of skin; L97.328 Non-pressure chronic ulcer of left ankle with other specified severity; F17.210 Nicotine dependence, cigarettes, uncomplicated
CPT/HCPCS: 97597; G0463

== ENCOUNTER 2024-06-16 09:29 | Outpatient (CLI) | payer MEDICARE, MEDICAID, SELFPAY ==
--- OUTSIDE RECORDS SUMMARY | 2024-06-16 09:32 | XMS_ITS | Referral Summary ---
Author Organization [place] Address [address] [facility] [place] [address] Care Team Providers Care Copper Miner Name Role Phone Paras Aguilar MD Primary [...] Advance Directives For more information, please contact: [phone] * Full Code (Latest Code Status on File) Date Activated Date Inactivated Comments 02/09/2018 9:11 AM * Full Code Date Activated Date Inactivated Comments 02/05/2018 5:50 PM 02/09/2018 9:11 AM Care Teams Copper Miner Relationship Specialty Start Date End Date Paras Aguilar MD PCP - General Family Practice 11/03/17
--- OUTSIDE RECORDS SUMMARY | 2024-06-16 09:32 | XMS_ITS | Clinical Summary ---
Author Organization [facility] Address [place], [place] [address] Care Team Providers Care Adobe Layer Helper Name Role Phone Paras Aguilar MD Primary [...] ogenic bladder As directed 1 Each. 20 turkmen catheter. 4 Kit 3 08/24/2018 Active medication [...] supply miscIndications:Tyler rogenic bladder As directed. 20 [place] urinary indwelling catheter. Change monthly. 1 Each [...] bed. Length of need 99 months. Bed surgical corsetier:no 1 unit 02/24/2019 Active durable medical equipment [...] spry nasal sprayIndications:Op ioid use Inhale 1 [place] in the nostril(s) one time if needed [...] this topic Medical Devices Implanted Type Area Treating And Pumping Supervisor Device Identifier Shelf Expiration Date Model / Serial / Lot [id number] - [id number] Implanted:Qty: 1 on 09/23/2018 by Clifton Tomlin MD at [facility] Left: Hip [employer] 06/26/2022 3525-5420S / / [id number] Description:Gamma Long nail [id number] - [id number] Implanted:Qty: 1 on 09/23/2018 by Clifton Tomlin MD at [facility] Left: Hip [employer] 12/24/2022 3060-0105S / / [id number] Description:Gamma Lag screw [id number] - [id number] Implanted:Qty: 1 on 09/23/2018 by Clifton Tomlin MD at [facility] Left: Hip [employer] 04/25/2023 [id number] / / [id number] Description:Locking screw Procedures Procedure Name Priority Date/Time Associated Diagnosis Comments LIPID PANEL W REFLEX MEASURED LDL Routine 10/11/2016 4:35 PM SAFETY INSTRUCTION POLICE OFFICER Routine general medical examination at a health care facility from Last 3 Months or Most Recently Relevant to Health Maintenance Results * LIPID PANEL W REFLEX MEASURED LDL (10/11/2016 4:35 PM SAFETY INSTRUCTION POLICE OFFICER) CHOLESTEROL,TOTAL 168 100 - 199 mg/dL 10/11/2016 7:37 PM SAFETY INSTRUCTION POLICE OFFICER [facility] TRIGLYCERIDES 108 <150 mg/dL 10/11/2016 7:37 PM SAFETY INSTRUCTION POLICE OFFICER [facility] HDL CHOLESTEROL 42 >40 mg/dL 6 7:37 PM SAFETY INSTRUCTION POLICE OFFICER [facility] NON-HDL CHOLESTEROL 126 <145 mg/dl 10/11/2016 7:37 PM [facility] CHOL/HDL RATIO 4.00 <4.50 10/11/2016 7:37 PM SAFETY INSTRUCTION POLICE OFFICER [facility] LDL CHOLESTEROL 104 <=130 mg/dL 10/11/2016 7:37 PM SAFETY INSTRUCTION POLICE OFFICER [facility] PATIENT STATUS NOT GIVEN 10/11/2016 7:37 PM SAFETY INSTRUCTION POLICE OFFICER [facility] Blood BLOOD SPECIMEN / Unknown Butterfly / Unknown 10/11/2016 4:35 PM SAFETY INSTRUCTION POLICE OFFICER 10/11/2016 4:35 PM SAFETY INSTRUCTION POLICE OFFICER Paras Aguilar MD CHEMISTRY [facility] [address] [place] [address] from Last 3 Months or Most Recently [...] 12 months since positive culture): resides in acute/custodial care, receiving hemodialysis, has chronic open wounds/skin damage, has long-term percutaneous indwelling medical devices. Exclusions for nares collection (if <12 months since positive culture) include all of the previous exclusions plus patients on antibiotics 7 days prior to collection. 05/12/2021 02/28/2022 Advance Directives Documents on File Type Date Recorded Patient [place] Actor Expl anation Power of Microstrategy Architect Developer 09/19/2017 12:00 PM 01/25 04/28 Healthcare Directive [...] Code Status Discussion: Not Discussed Care Teams Adobe Layer Helper Relationship Specialty Start Date End Date Paras Aguilar MD [address] [place] [address] PCP - General Family Practice 09/14/20 [facility] Registered Nurse 11/05/17 Thang Rod Solar Energy Installation Manager 12/26/17
--- OUTSIDE RECORDS SUMMARY | 2024-06-16 09:32 | XMS_ITS | Clinical Summary ---
Author Organization [place] Address [address] [place] [address] Care Team Providers Care Software Licensing Specialist Name Role Phone Paras Aguilar MD Primary [...] Advance Directives For more information, please contact: [phone] * Full Code (Latest Code Status on File) Date Activated Date Inactivated Comments 02/09/2018 9:11 AM * Full Code Date Activated Date Inactivated Comments 02/05/2018 5:50 PM 02/09/2018 9:11 AM Care Teams Software Licensing Specialist Relationship Specialty Start Date End Date Paras Aguilar MD PCP - General Family Practice 11/03/17
== END 2024-06-16 09:30 | disposition home or self-care (01) ==
LOC: WOUND 09:29
PROVIDERS: PCP Family Medicine; Visit Provider Surgery
DX: I89.0 Lymphedema, not elsewhere classified (principal); L97.512 Non-pressure chronic ulcer of other part of right foot with fat layer exposed
CPT/HCPCS: 97597

== ENCOUNTER 2024-06-23 09:20 | Outpatient (CLI) | payer MEDICARE, MEDICAID, SELFPAY ==
--- OUTSIDE RECORDS SUMMARY | 2024-06-23 09:24 | XMS_ITS | Clinical Summary ---
Author Organization [facility] Address [place], [place] [address] Care Team Providers Care Inspector Machine Cut Glass Name Role Phone Paras Aguilar MD Primary [...] ogenic bladder As directed 1 Each. 20 latvian catheter. 4 Kit 3 08/24/2018 Active medication [...] supply miscIndications:Tyler rogenic bladder As directed. 20 Nepali urinary indwelling catheter. Change monthly. 1 Each [...] bed. Length of need 99 months. Bed subgrade tester:no 1 unit 02/24/2019 Active durable medical equipment [...] spry nasal sprayIndications:Op ioid use Inhale 1 [place] in the nostril(s) one time if needed [...] this topic Medical Devices Implanted Type Area Air And Water Filler Device Identifier Shelf Expiration Date Model / Serial / Lot [id number] - [id number] Implanted:Qty: 1 on 09/23/2018 by Clifton Tomlin MD at [facility] Left: Hip [employer] 06/26/2022 3525-5420S / / [id number] Description:Gamma Long nail [id number] - [id number] Implanted:Qty: 1 on 09/23/2018 by Clifton Tomlin MD at [facility] Left: Hip [employer] 12/24/2022 3060-0105S / / [id number] Description:Gamma Lag screw [id number] - [id number] Implanted:Qty: 1 on 09/23/2018 by Clifton Tomlin MD at [facility] Left: Hip [employer] 04/25/2023 [id number] / / [id number] Description:Locking screw Procedures Procedure Name Priority Date/Time Associated Diagnosis Comments LIPID PANEL W REFLEX MEASURED LDL Routine 10/11/2016 4:35 PM BILINGUAL SALES CONSULTANT Routine general medical examination at a health care facility from Last 3 Months or Most Recently Relevant to Health Maintenance Results * LIPID PANEL W REFLEX MEASURED LDL (10/11/2016 4:35 PM BILINGUAL SALES CONSULTANT) CHOLESTEROL,TOTAL 168 100 - 199 mg/dL 10/11/2016 7:37 PM BILINGUAL SALES CONSULTANT [facility] TRIGLYCERIDES 108 <150 mg/dL 10/11/2016 7:37 PM BILINGUAL SALES CONSULTANT [facility] HDL CHOLESTEROL 42 >40 mg/dL 6 7:37 PM BILINGUAL SALES CONSULTANT [facility] NON-HDL CHOLESTEROL 126 <145 mg/dl 10/11/2016 7:37 PM [facility] CHOL/HDL RATIO 4.00 <4.50 10/11/2016 7:37 PM BILINGUAL SALES CONSULTANT [facility] LDL CHOLESTEROL 104 <=130 mg/dL 10/11/2016 7:37 PM BILINGUAL SALES CONSULTANT [facility] PATIENT STATUS NOT GIVEN 10/11/2016 7:37 PM BILINGUAL SALES CONSULTANT [facility] Blood BLOOD SPECIMEN / Unknown Butterfly / Unknown 10/11/2016 4:35 PM BILINGUAL SALES CONSULTANT 10/11/2016 4:35 PM BILINGUAL SALES CONSULTANT Paras Aguilar MD CHEMISTRY [facility] [address] [place] [address] from Last 3 Months or Most Recently [...] Documents on File Type Date Recorded Patient Skid Man Expl anation Power of Cleaner Signs 09/19/2017 12:00 PM 01/25 04/28 Healthcare Directive [...] Code Status Discussion: Not Discussed Care Teams Inspector Machine Cut Glass Relationship Specialty Start Date End Date Paras Aguilar MD [address] [place] [address] PCP - General Family Practice 09/14/20 [facility] Registered Nurse 11/05/17 Thang Rod Dietary Server 12/26/17
--- OUTSIDE RECORDS SUMMARY | 2024-06-23 09:24 | XMS_ITS | Referral Summary ---
Author Organization [place] Address [address] [facility] [place] [address] Care Team Providers Care Teasel Setter Name Role Phone Paras Aguilar MD Primary Care Provider [phone] Allergies Active Allergy Reactions Criticality Noted Date [...] Advance Directives For more information, please contact: [phone] * Full Code (Latest Code Status on File) Date Activated Date Inactivated Comments 02/09/2018 9:11 AM * Full Code Date Activated Date Inactivated Comments 02/05/2018 5:50 PM 02/09/2018 9:11 AM Care Teams Teasel Setter Relationship Specialty Start Date End Date Paras Aguilar MD PCP - General Family Practice 11/03/17
--- OUTSIDE RECORDS SUMMARY | 2024-06-23 09:24 | XMS_ITS | Clinical Summary ---
Author Organization [place] Address [address] [facility] [place] [address] Care Team Providers Care Industrial Equipment Mechanic Name Role Phone Paras Aguilar MD Primary [...] Advance Directives For more information, please contact: [phone] * Full Code (Latest Code Status on File) Date Activated Date Inactivated Comments 02/09/2018 9:11 AM * Full Code Date Activated Date Inactivated Comments 02/05/2018 5:50 PM 02/09/2018 9:11 AM Care Teams Industrial Equipment Mechanic Relationship Specialty Start Date End Date Paras Aguilar MD PCP - General Family Practice 11/03/17
== END 2024-06-23 09:21 | disposition home or self-care (01) ==
LOC: WOUND 09:21
PROVIDERS: PCP Family Medicine; Visit Provider Surgery
DX: I89.0 Lymphedema, not elsewhere classified (principal); L97.521 Non-pressure chronic ulcer of other part of left foot limited to breakdown of skin; M62.3 Immobility syndrome (paraplegic); Z99.3 Dependence on wheelchair
CPT/HCPCS: 97597

== ENCOUNTER 2024-06-30 10:31 | Outpatient (CLI) | payer MEDICARE, MEDICAID, SELFPAY ==
--- OUTSIDE RECORDS SUMMARY | 2024-06-30 10:32 | XMS_ITS | Clinical Summary ---
Author Organization [place] Address [address] [facility] [place] [address] Care Team Providers Care Scoreboard Operator Name Role Phone Paras Aguilar MD Primary [...] Advance Directives For more information, please contact: [phone] * Full Code (Latest Code Status on File) Date Activated Date Inactivated Comments 02/09/2018 9:11 AM * Full Code Date Activated Date Inactivated Comments 02/05/2018 5:50 PM 02/09/2018 9:11 AM Care Teams Scoreboard Operator Relationship Specialty Start Date End Date Paras Aguilar MD PCP - General Family Practice 11/03/17
--- OUTSIDE RECORDS SUMMARY | 2024-06-30 10:32 | XMS_ITS | Referral Summary ---
Author Organization [place] Address [address] [facility] [place] [address] Care Team Providers Care Medical Claims Assistant Name Role Phone Paras Aguilar MD Primary [...] Advance Directives For more information, please contact: [phone] * Full Code (Latest Code Status on File) Date Activated Date Inactivated Comments 02/09/2018 9:11 AM * Full Code Date Activated Date Inactivated Comments 02/05/2018 5:50 PM 02/09/2018 9:11 AM Care Teams Medical Claims Assistant Relationship Specialty Start Date End Date Paras Aguilar MD PCP - General Family Practice 11/03/17
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
--- OUTSIDE RECORDS SUMMARY | 2024-06-30 10:33 | XMS_ITS | Continuity of Care Document ---
Author Organization SOFÍA Recinos Address [address] [place] [address] Phone Care Team Providers Care Music Library Assistant Name Role Phone RN, RN Unavailable Unavailable [...] PO HS) - Active Procedures Procedure Date PHONE E/M PHYS/QHP 21-30 MIN PHONE E/M PHYS/QHP 21-30 MIN Est Pt [...] Providers Copied on Encounter EVERETTE Recinos, [address] [facility] [address], [place], [address], [place] tel:[phone] Jorje GAVIRIA No Information 4 RN RN. [address] , [address], [place], [address], [place]. tel:[phone] PHONE E/M PHYS/QHP 21-30 MIN EVERETTE Recinos, [address] [facility] [address], [place], [address], [place] tel:[phone] [facility] lower back pain (chief complaint) Intervertebral disc disorders w radiculopathy, lumbar region 4 Paniagua Deneen. [address] [place], [address], [place]. tel:[phone] Referring Provider: Marco Antonio Parada, [address], [place], [address]. tel:[phone] PHONE E/M PHYS/QHP 21-30 MIN EVERETTE Recinos, [address], [id number], [place] tel:[phone] [facility] lower back pain (chief complaint) Intervertebral disc disorders w radiculopathy, lumbar regionCervicalg ia 4 Paniagua Deneen. [address] [place], [address], [place]. tel:[phone] Referring Provider: Marco Antonio Parada, [address], [place], [address]. tel:[phone] Est Pt Eval Moderate EVERETTE Recinos, [address], [place], [place], [address], [place] tel:[phone] [facility] lower back pain (chief complaint) Intervertebral disc disorders w radiculopathy, lumbar regionCervicalg ia 4 She Qiying. [address], [place], [address], [place]. tel:[phone] Referring Provider: Marco Antonio Parada, [address], [place], [address]. tel:[phone] Jorje [facility], [address] [facility] [address], [place], [address], [place] tel:[phone] [facility] No Information 4 She Qiying. [address] , [facility] [address], [place], [address], [place]. tel:[phone] Referring Provider: Marco Antonio Parada, [address] [facility] [address], [place], [address]. tel:[phone] PHONE E/M PHYS/QHP 21-30 MIN SOFÍA Recinos, [address] [facility] [address], [place], [address], [place] tel:[phone] [facility] lower back pain (chief complaint) Intervertebral disc disorders w radiculopathy, lumbar regionCervicalg ia 4 She Qiying. [address] , [address], [place], [address], [place]. tel:[phone] Referring Provider: Marco Antonio Parada, [address] [facility] [address], [place], [address]. tel:[phone] SOFÍA Recinos, [address] [facility] [address], [place], [address], [place] tel:[phone] [facility] No Information 4 Stayner Ba. [address], [place], [address], [place]. tel:[phone] Referring Provider: Ba Cardoza, [address], [place], [address]. tel:[phone] [facility], [address], [address], [place], [address], [place] tel:[phone] [facility] neck pain (chief complaint) Radiculopathy, cervical regionRadiculop athy, cervical region 4 [facility]. [address], [place], [place], [address], [place]. tel:[phone] Referring Provider: Ba Cardoza, [address], [place], [address]. tel:[phone] Jorje [facility], [address], [place], [address], [place] tel:[phone] [facility] No Information 4 Elie Cosme. [address], [address], [place]. tel:[phone] Referring Provider: Ba Cardoza, [address], [place], [address]. tel:[phone] Est Pt Eval Telehealth [facility], [facility], [address], [place], [place], [address], [place] tel:[phone] [facility] back pain (chief complaint)n samson pain (chief complaint) Intervertebral disc disorders w radiculopathy, lumbar regionCervicalg ia 4 Brittany Riggs. [address], [address], [place], [address], [place]. tel:[phone] Referring Provider: Marco Antonio Parada, [address], [place], [address]. tel:[phone] Est Pt Eval Moderate Jorje, [facility], [address] [facility] [address], [place], [address], [place] tel:[phone] Willowjean-pierre Recinos [facility] 7390 neck pain (chief complaint) Intervertebral disc disorders w radiculopathy, lumbar regionCervicalg ia 4 Paniagua Deneen. [address] [place], [address], [place]. tel:[phone] Referring Provider: Marco Antonio Parada, [address] [facility] [address], [place], [address]. tel:[phone] Jorje [facility], [address] [facility] [address], [place], [address], [place] tel:[phone] [facility] No Information 4 Paniagua Deneen. [address] [place], [address], [place]. tel:[phone] Referring Provider: Marco Antonio Parada, [address], [address]. tel:[phone] PHONE E/M PHYS/QHP 21-30 MIN Jorje, [facility], [address] [facility] [address], [place], [address], [place] tel:[phone] [facility] back pain (chief complaint) Intervertebral disc disorders w radiculopathy, lumbar regionCervicalg ia 4 She Qiying. [address] , [facility] [address], [place], [address], [place]. tel:[phone] Referring Provider: Marco Antonio Parada, [address], [place], [address]. tel:[phone] [facility], [address], [facility] [address], [address], [place] tel:[phone] [facility] bilateral leg pain (chief complaint)b ilateral hip pain (chief complaint) Radiculopathy, lumbar regionRadiculop athy, lumbar region 4 [facility]. [address], [place], [place], [address], [place]. tel:[phone] Referring Provider: Duglas Gordon, [address], [place], [address]. tel:[phone] Jorje, [facility], [address], [place], [place], [address], [place] tel:[phone] [facility] No Information 4 [employer] [facility]. [address], [place], [address], [place]. tel:[phone] Referring Provider: Duglas Gordon, [address], [place], [address]. tel:[phone] Jorje, [facility], [address], [place], [place], [address], [place] tel:[phone] [facility] No Information 4 Evan Duglas. [address], [place], [address], [place]. tel:[phone] Referring Provider: REFERRAL SELF, NINO. Est Pt Eval Moderate Jorje, [facility], [address], [place], [place], [address], [place] tel:[phone] [facility] back pain (chief complaint) Intervertebral disc disorders w radiculopathy, lumbar regionCervicalg ia 4 Brittany Riggs. [address], [place], [address], [place]. tel:[phone] Referring Provider: Marco Antonio Parada, [address], [place], [address]. tel:[phone] Jorje [facility], [address] [facility] [address], [place], [place], [address], [place] tel:[phone] [facility] No Information 4 She Qinew [facility]. [address], [address], [place], [address], [place]. tel:[phone] Referring Provider: Marco Antonio Parada, [address], [place], [address]. tel:[phone] Est Pt Eval Telehealth Jorje [facility], [address] [facility] [address], [place], [address], [place] tel:[phone] [facility] Neck Pain (chief complaint)B ilateral buttocks (chief complaint) Intervertebral disc disorders w radiculopathy, lumbar regionCervicalg ia 4 She Qiying. [address] , [facility] [address], [place], [address], [place]. tel:[phone] Referring Provider: Marco Antonio Parada, [address] [facility] [address], [place], [address]. tel:[phone] Est Pt Eval Telehealth [facility], [address] [facility] [address], [place], [address], [place] tel:[phone] [facility] bilateral buttock pain (chief complaint)N samson Pain (chief complaint) Intervertebral disc disorders w radiculopathy, lumbar regionCervicalg iaParaplegia, unspecified 3 Melum Pinky. [address], [facility] [address], [place], [address], [place]. tel:[phone] Referring Provider: Marco Antonio Parada, [address] [facility] [address], [place], [address]. tel:[phone] Est Pt Eval Moderate [facility], [address], [place], [place], [address], [place] tel:[phone] [facility] buttock pain (chief complaint)N samson Pain (chief complaint) Intervertebral disc disorders w radiculopathy, lumbar regionCervicalg ia 3 Ketola Isamar. [address], [place], [place], [address], [place]. tel:[phone] Referring Provider: Marco Antonio Parada, [address], [place], [address]. tel:[phone] [facility], [address], [place], [place], [address], [place] tel:[phone] [facility] No Information 3 Ketola Isamar. [address], [place], [place], [address], [place]. tel:[phone] Referring Provider: Marco Antonio Parada, [address], [address]. tel:[phone] Est Pt Eval Telehealth [facility], [address], [place], [place], [address], [place] tel:[phone] [facility] bilateral leg pain (chief complaint)N samson Pain (chief complaint) Intervertebral disc disorders w radiculopathy, lumbar regionPain in unspecified hip 3 Ketola [place]. [address], [place], [address], [place]. tel:[phone] Referring Provider: Marco Antonio Parada, [address], [place], [address]. tel:[phone] [facility], [address], [place], [place], [address], [place] tel:[phone] [facility] Radiculopathy, lumbar regionCervicalg iaParaplegia, unspecified Sep- 3 Camila Nation. [address], [place], [address], [place]. tel:[phone] Referring Provider: Marco Antonio Parada, [address] [facility] [address], [place], [address]. tel:[phone] Est Pt Eval Telehealth Jorje [facility], [address], [place], [place], [address], [place] tel:[phone] [facility] bilateral neck pain (chief complaint)B shiva aches (chief complaint) Body mass index (BMI) 22.0-22.9, adultInterverte bral disc disorders w radiculopathy, lumbar regionPain in unspecified hip Sep-0 3 Ketola [place]. [address] [facility], [place], [place], [address], [place]. tel:[phone] Referring Provider: Marco Antonio Parada, [address] [facility] [address], [place], [address]. tel:[phone] Psychiatric Diagnostic Evaluation Telephone Only [facility]je [facility], [address], [place], [place], [address], [place] tel:[phone] [facility] Pain disorder with related psychological factors 3 Ellis Banks. [address] [facility], [place], [address], [place]. tel:[phone] Referring Provider: Marco Antonio Parada, [address] [facility] [address], [place], [address]. tel:[phone] Est Pt Eval Moderate Jorje [facility], [address], [place], [place], [address], [place] tel:[phone] [facility] Both buttocks pain (chief complaint)b ilateral neck pain (chief complaint) Body mass index (BMI) 22.0-22.9, adultInterverte bral disc disorders w radiculopathy, lumbar region 3 She Qiying. [address], [address], [place], [address], [place]. tel:[phone] Referring Provider: Marco Antonio Parada, [address], [place], [address]. tel:[phone] Jorje, [facility], [address], [place], [place], [address], [place] tel:[phone] [facility] No Information 3 She Qiying. [address], [place], [address], [place]. tel:[phone] Referring Provider: Marco Antonio Parada, [address], [place], [address]. tel:[phone] [facility], [address], [place], [place], [address], [place] tel:[phone] [facility] No Information 3 Elie Cosme. [address], [address], [place]. tel:[phone] Referring Provider: Ba Cardoza, [address], [place], [address]. tel:[phone] [facility], [address], [address], [place], [address], [place] tel:[phone] [facility] back pain (chief complaint) Radiculopathy, lumbar regionRadiculop athy, lumbar region 3 [facility]. [address], [place], [place], [address], [place]. tel:[phone] Referring Provider: Ba Cardoza, [address], [place], [address]. tel:[phone] [facility], [facility], [address], [place], [place], [address], [place] tel:[phone] [facility] No Information 3 Elie Cosme. [address], [place], [address], [place]. tel:[phone] Referring Provider: Ba Cardoza, [address], [place], [address]. tel:[phone] Est Pt Eval 25 Min Telehealth [facility], [facility], [address], [place], [place], [address], [place] tel:[phone] [facility] back pain (chief complaint) Intervertebral disc disorders w radiculopathy, lumbar regionPain in unspecified hipBody mass index (BMI) 24.0-24.9, adult 3 Ketola Isamar. [address], [place], [place], [address], [place]. tel:[phone] Referring Provider: Marco Antonio Parada, [address], [place], [address]. tel:[phone] Est Pt Eval 25 Min Telehealth [facility], [facility], [address], [place], [place], [address], [place] tel:[phone] [facility] back pain (chief complaint) Intervertebral disc disorders w radiculopathy, lumbar regionPain in unspecified hipBody mass index (BMI) 24.0-24.9, adult 3 Ketola Isamar. [address], [place], [place], [address], [place]. tel:[phone] Referring Provider: Marco Antonio Parada, [address], [place], [address]. tel:[phone] Est Pt Eval 25 Min Jorje, [facility], [address], [place], [place], [address], [place] tel:[phone] [facility] bilateral neck pain (chief complaint)b ack pain (chief complaint) Body mass index (BMI) 24.0-24.9, adultInterverte bral disc disorders w radiculopathy, lumbar regionPain in unspecified hip 3 She Qiying. [address], [place], [address], [place]. tel:[phone] Referring Provider: Marco Antonio Parada, [address], [place], [address]. tel:[phone] [facility], [address], [place], [place], [address], [place] tel:[phone] [facility] No Information 3 She Qiying. [address], [place], [address], [place]. tel:[phone] Referring Provider: Marco Antonio Parada, [address], [place], [address]. tel:[phone] [facility], [address], [place], [place], [address], [place] tel:[phone] [facility] No Information 3 Lb Sanchez. [address], [address], [place], [place], [address], [place]. tel:[phone] Referring Provider: Daniel Asher, [address], [place], [address]. tel:[phone] [facility], [address], [address], [place], [address], [place] tel:[phone] [facility] bilateral neck pain (chief complaint) Radiculopathy, cervical regionRadiculop athy, cervical region 3 [facility]. [address], [place], [place], [address], [place]. tel:[phone] Referring Provider: Daniel Asher, [address], [place], [address]. tel:[phone] [facility], [facility], [address], [place], [place], [address], [place] tel:[phone] [facility] No Information 3 Lb Sanchez. [address], [address], [place], [place], [address], [place]. tel:[phone] Referring Provider: Daniel Asher, [address], [place], [address]. tel:[phone] Est Pt Eval 25 Min Telehealth Jorje [facility], [address], [place], [place], [address], [place] tel:[phone] [facility] Gluteal pain (chief complaint) Intervertebral disc disorders w radiculopathy, lumbar regionCervicalg iaPain in legBody mass index (BMI) 23.0-23.9, adult 3 Ketola Isamar. [address], [address], [place], [address], [place]. tel:[phone] Referring Provider: Marco Antonio Paraad, [address], [place], [address]. tel:[phone] Est Pt Eval 25 Min Telehealth Jorje, [facility], [address], [place], [place], [address], [place] tel:[phone] [facility] Glute Pain (chief complaint) Intervertebral disc disorders w radiculopathy, lumbar regionPain in legCervicalgiaB shiva mass index (BMI) 23.0-23.9, adult 3 Ketola [place]. [address], [address], [place], [address], [place]. tel:[phone] Referring Provider: Marco Antonio Parada, [address] [facility] [address], [place], [address]. tel:[phone] Est Pt Eval 25 Min EVERETTE Recinos, [address], [place], [address], [place] tel:[phone] [facility] bilateral leg pain (chief complaint) Intervertebral disc disorders w radiculopathy, lumbar regionPain in legBody mass index (BMI) 23.0-23.9, adult 3 [place]. [address], [facility] [address], [place], [address], [place]. tel:[phone] Referring Provider: Marco Antonio Parada, [address], [place], [address]. tel:[phone] EVERETTE Recinos, [address] [facility] [address], [place], [address], [place] tel:[phone] [facility] No Information 3 [place]. [address], [place], [address], [place]. tel:[phone] Referring Provider: Marco Antonio Parada, [address], [place], [address]. tel:[phone] Est Pt Eval 25 Min Telehealth EVERETTE Recinos, [address] [facility] [address], [place], [place], [address], [place] tel:[phone] [facility] back pain (chief complaint) Intervertebral disc disorders w radiculopathy, lumbar regionPain in leg 2 She Qiying. [address], [address], [place], [address], [place]. tel:[phone] Referring Provider: Marco Antonio Parada, [address], [place], [address]. tel:[phone] Est Pt Eval 25 Min [facility]health [facility], [address], [place], [place], [address], [place] tel:[phone] [facility] back pain (chief complaint) Intervertebral disc disorders w radiculopathy, lumbar regionLow back pain, unspecifiedBody mass index (BMI) 25.0-25.9, adult 2 She Qiying. [address], [address], [place], [address], [place]. tel:[phone] Referring Provider: Marco Antonio Parada, [address], [place], [address]. tel:[phone] Est Pt Eval 25 Min [facility], [address], [place], [place], [address], [place] tel:[phone] [facility] bilateral hip pain (chief complaint) Body mass index (BMI) 25.0-25.9, adultInterverte bral disc disorders w radiculopathy, lumbar regionLow back pain, unspecified 2 She Qiying. [address], [address], [place], [address], [place]. tel:[phone] Referring Provider: Marco Antonio Parada, [address], [place], [address]. tel:[phone] [facility], [address], [place], [place], [address], [place] tel:[phone] [facility] No Information 2 She Oneil. [address], [address], [place], [address], [place]. tel:[phone] Referring Provider: Marco Antonio Parada, [address], [place], [address]. tel:[phone] Est Pt Eval 25 Min Telehealth [facility], [address], [place], [place], [address], [place] tel:[phone] [facility] bilateral hip pain (chief complaint) Body mass index (BMI) 25.0-25.9, adultInterverte bral disc disorders w radiculopathy, lumbar regionLow back pain, unspecified 2 She Qicarmen. [address], [address], [place], [address], [place]. tel:[phone] Referring Provider: Marco Antonio Parada, [address], [place], [address]. tel:[phone] Psychiatric Diagnostic Evaluation Telephone Only SOF[facility]A Recinos, [address], [place], [place], [address], [place] tel:[phone] [facility] Pain disorder with related psychological factors 2 Gottwalt Lashawn. [address], [address], [place], [place], [address], [place]. tel:[phone] Referring Provider: Marco Antonio Parada, [address], [place], [address]. tel:[phone] Est Pt Eval 25 Min Telehealth [facility], [address], [place], [place], [address], [place] tel:[phone] [facility] buttocks pain (chief complaint) Intervertebral disc disorders w radiculopathy, lumbar regionLow back pain, unspecifiedBody mass index (BMI) 25.0-25.9, adult She Qiying. [address], [address], [place], [address], [place]. tel:[phone] Referring Provider: Oneil Soto, [address], [place], [address]. tel:[phone] Est Pt Eval 25 Min [facility], [facility], [address], [place], [place], [address], [place] tel:[phone] [facility] buttocks pain (chief complaint) Body mass index (BMI) 25.0-25.9, adultInterverte bral disc disorders w radiculopathy, lumbar regionLow back pain, unspecified 2 She Qiying. [address], [address], [place], [address], [place]. tel:[phone] Referring Provider: Oneil Soto, [address], [place], [address]. tel:[phone] [facility], [facility], [address], [place], [place], [address], [place] tel:[phone] [facility] [facility] No Information She Qiying. [address], [address], [place], [address], [place]. tel:[phone] Referring Provider: Oneil Soto, [address], [place], [address]. tel:[phone] J[facility], [facility], [address], [place], [place], [address], [place] tel:[phone] [facility] No Information 2 Lb Sanchez. [address], [place], [place], [address], [place]. tel:[phone] Referring Provider: Daniel Asher, [address], [place], [address]. tel:[phone] [facility], [address], [place], [address], [place] tel:[phone] [facility] back pain (chief complaint) Radiculopathy, lumbar regionRadiculop athy, lumbar region 2 [facility]. [address], [place], [place], [address], [place]. tel:[phone] Referring Provider: Daniel Asher, [address] [facility] [address], [place], [address]. tel:[phone] Est Pt Eval 25 Min Telehealth J[facility]je, [facility], [address], [place], [place], [address], [place] tel:[phone] [facility] buttocks (chief complaint) Intervertebral disc disorders w radiculopathy, lumbar regionBody mass index (BMI) 25.0-25.9, adultCervicalgi aOpioid dependence, uncomplicated 2 Brittany Oneil. [address], [address], [place], [address], [place]. tel:[phone] Referring Provider: Marco Antonio Parada, [address], [place], [address]. tel:[phone] Est Pt Eval 25 Min [facility], [address], [place], [place], [address], [place] tel:[phone] [facility] Glutes, leg, feet (chief complaint) Pain in legRadiculopath y, lumbar regionBody mass index (BMI) 25.0-25.9, adult February- 2 Brittany Riggs. [address], [address], [place], [address], [place]. tel:[phone] Referring Provider: Oneil Soto, [address], [place], [address]. tel:[phone] J[facility]je, [facility], [address], [place], [place], [address], [place] tel:[phone] [facility] No Information 2 Tal Crain. [address], [place], [place], [address], [place]. tel:[phone] Referring Provider: Marco Antonio Parada, [address] [facility] [address], [place], [address]. tel:[phone] [facility], [address], [place], [address], [place] tel:[phone] [facility] back pain (chief complaint) Radiculopathy, lumbar regionOther intervertebral disc degeneration, lumbar regionLow back pain, unspecifiedOpio id dependence, uncomplicated 2 [facility]. [address], [place], [place], [address], [place]. tel:[phone] Referring Provider: Paras Mckinley, [address], [place], [address]. tel:[phone] Est Pt Eval 25 Min J[facility]je [facility], [address] [facility] [address], [place], [place], [address], [place] tel:[phone] [facility] back pain (chief complaint) Encounter for adjustment and management of infusion pumpLow back pain, unspecified 2 Tal Bernard. [address], [place], [address], [place]. tel:[phone] Referring Provider: Marco Antonio Parada, [address], [place], [address]. tel:[phone] [facility], [facility], [address], [place], [place], [address], [place] tel:[phone] [facility] No Information 2 Dylan Tim. [address], [place], [address], [place]. tel:[phone] Referring Provider: Paras Parada M, [address], [place], [address]. tel:[phone] Est Pt Eval 25 Min Telehealth [facility], [facility], [address], [place], [address], [place] tel:[phone] [facility] back pain (chief complaint) Intervertebral disc disorders w radiculopathy, lumbar regionParaplegi aRadiculopathy, cervical regionBody mass index (BMI) 25.0-25.9, adult 2 She Qiying. [address], [address], [place], [address], [place]. tel:[phone] Referring Provider: Oneil Soto, [address], [place], [address]. tel:[phone] Est Pt Eval 25 Min [facility], [facility], [address], [place], [place], [address], [place] tel:[phone] [facility] back pain (chief complaint) Intervertebral disc disorders w radiculopathy, lumbar regionParaplegi aRadiculopathy, cervical regionBody mass index (BMI) 26.0-26.9, adult Jan- 2 She Tracyying. [address], [address], [place], [address], [place]. tel:[phone] Referring Provider: Oneil Soto, [address], [place], [address]. tel:[phone] [facility], [address], [place], [address], [place] tel:[phone] [facility] Paraplegia, unspecifiedRadi culopathy, lumbar region 2 Camila Nation. [address], [place], [address], [place]. tel:[phone] Referring Provider: Chapis Jensen, [address], [place], [address]. tel:[phone] [facility], [address], [place], [address], [place] tel:[phone] [facility] No Information 2 She Oneil. [address], [address], [place], [address], [place]. tel:[phone] Referring Provider: Oneil Soto, [address], [place], [address]. tel:[phone] Est Pt Eval 25 Min Telehealth Jorje [facility], [address], [place], [place], [address], [place] tel:[phone] [facility] Glute pain (chief complaint)b ilateral knee pain (chief complaint) Intervertebral disc disorders w radiculopathy, lumbar regionPain in legParaplegiaPo stlaminectomy syndrome, not elsewhere classifiedLong term (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 analgesicBody mass index (BMI) 26.0-26.9, adult Dec- 2 Brittany Tracycarmen. [address], [address], [place], [address], [place]. tel:[phone] Referring Provider: Oneil Soto, [address], [place], [address]. tel:[phone] [facility], [address], [place], [place], [address], [place] tel:[phone] KODY [facility] Other specified complications of surgical and medical care, not elsewhere classified, initial encounterPostla minectomy syndrome, not elsewhere classified 2 Tal Crain. [address], [place], [place], [address], [place]. tel:[phone] Referring Provider: Oneil Soto, [address], [place], [address]. tel:[phone] Est Pt Eval 25 Min Telehealth [facility], [address], [place], [place], [address], [place] tel:[phone] [facility] bilateral leg pain (chief complaint) Radiculopathy, lumbar regionPain in legPostlaminect sofi syndrome, not elsewhere classifiedLong term (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 analgesicInfect ion and inflammatory reaction due to other nervous system device, implant or graft, initial encounter 2 Brittany Riggs. [address], [address], [place], [address], [place]. tel:[phone] Referring Provider: Oneil Soto, [address], [place], [address]. tel:[phone] [facility], [address], [place], [place], [address], [place] tel:[phone] [facility] back pain (chief complaint) Infection and inflammatory reaction due to other nervous system device, implant or graft, initial encounter 2 RN RN. [address], [address], [place], [place], [address], [place]. tel:[phone] Referring Provider: NINO JONES. Est Pt Eval 25 Min Telehealth Jorje [facility], [address] [facility] [address], [place], [place], [address], [place] tel:[phone] [facility] back pain (chief complaint) Intervertebral disc disorders w radiculopathy, lumbar regionLong term (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 analgesic 2 Brittany Riggs. [address] [facility] [address], [place], [address], [place]. tel:[phone] Referring Provider: Oneil Soto, [address] [facility] [address], [place], [address]. tel:[phone] [facility], [address] [facility] [address], [address], [place], [address], [place] tel:[phone] [facility] Radiculopathy, lumbar regionOther intervertebral disc degeneration, lumbar regionLow back pain, unspecifiedOpio id dependence, uncomplicated 2 [facility]. [address] [facility] [address], [place], [place], [address], [place]. tel:[phone] Referring Provider: Paras Mckinley, [address], [place], [address]. tel:[phone] [facility], [address] [facility] [address], [place], [place], [address], [place] tel:[phone] [facility] No Information 2 Tal Crain. [address], [place], [place], [address], [place]. tel:[phone] Referring Provider: Marco Antonio Parada, [address] [facility] [address], [place], [address]. tel:[phone] [facility], [address], [place], [place], [address], [place] tel:[phone] [facility] No Information 2 Dylan Tim. [address], [place], [address], [place]. tel:[phone] Referring Provider: Paras Mckinley, [address], [place], [address]. tel:[phone] [facility], [address], [place], [place], [address], [place] tel:[phone] [facility] Other specified complications of surgical and medical care, not elsewhere classified, initial encounter 2 Tal Crain. [address], [place], [place], [address], [place]. tel:[phone] Referring Provider: TYRA LAUREN, NINO. [facility], [address], [place], [address], [place] tel:[phone] [facility] aspiration (chief complaint) Other specified complications of surgical and medical care, not elsewhere classified, initial encounter 2 [facility]. [address], [place], [place], [address], [place]. tel:[phone] Referring Provider: Ba Cardoza, [address], [place], [address]. tel:[phone] [facility], [facility], [address], [place], [place], [address], [place] tel:[phone] [facility] No Information 2 Elie Cosme. [address], [place], [address], [place]. tel:[phone] Referring Provider: Ba Cardoza, [address], [place], [address]. tel:[phone] Est Pt Eval 25 Min [facility], [address], [place], [place], [address], [place] tel:[phone] [facility] buttocks (chief complaint) Intervertebral disc disorders w radiculopathy, lumbar regionParaplegi aPostlaminectom y syndrome, not elsewhere classifiedEncou nter for adjustment and management of infusion pumpInterverteb ral disc disorders w radiculopathy, lumbar region 2 Veena Funez. [address], [address], [place], [address], [place]. tel:[phone] Referring Provider: Marco Antonio Parada, [address], [place], [address]. tel:[phone] Est Pt Eval 25 Min [facility], [address], [place], [place], [address], [place] tel:[phone] [facility] Pump Visit (chief complaint) Body mass index (BMI) 26.0-26.9, adultInterverte bral disc disorders w radiculopathy, lumbar regionParaplegi aPostlaminectom y syndrome, not elsewhere classifiedEncou nter for adjustment and management of infusion pumpInterverteb ral disc disorders w radiculopathy, lumbar region 1 Burke Osullivan. [address], [place], [address], [place]. tel:[phone] Referring Provider: Marco Antonio Parada, [address], [place], [address]. tel:[phone] Est Pt Eval 25 Min [facility], [address], [place], [place], [address], [place] tel:[phone] [facility] Body aches (chief complaint) Body mass index (BMI) 26.0-26.9, adultPostlamine ctomy syndromeInterve rtebral disc disorders w radiculopathy, lumbar regionEncounter for adjustment and management of infusion pumpPostlaminec francisco syndrome, not elsewhere classified 1 Burke Osullivan. [address], [place], [place], [address], [place]. tel:[phone] Referring Provider: Marco Antonio Parada, [address], [place], [address]. tel:[phone] [facility], [address], [place], [place], [address], [place] tel:[phone] [facility] No Information 1 Burke Osullivan. [address], [place], [place], [address], [place]. tel:[phone] Referring Provider: Marco Antonio Parada, [address], [place], [address]. tel:[phone] Est Pt Eval 25 Min Telehealth [facility] Recinos, [address], [place], [place], [address], [place] tel:[phone] [facility] pelvic pain (chief complaint) Radiculopathy, cervical regionLow back pain, unspecifiedLong term (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 analgesicRadicu lopathy, lumbar regionBody mass index (BMI) 26.0-26.9, adult Nov- 1 Veena Funez. [address], [address], [place], [address], [place]. tel:[phone] Referring Provider: Dee Dee Curiel, [address], [place], [address]. tel:[phone] [facility], [address], [place], [place], [address], [place] tel:[phone] [facility] No Information 1 Elie Cosme. [address], [place], [address], [place]. tel:[phone] Referring Provider: aB Cardoza, [address] [facility] [address], [place], [address]. tel:[phone] [facility], [address], [place], [address], [place] tel:[phone] [facility] back pain (chief complaint) Radiculopathy, lumbar regionOther intervertebral disc degeneration, lumbar regionLow back pain, unspecifiedOpio id dependence, uncomplicated 1 [facility]. [address] [facility] [address], [place], [place], [address], [place]. tel:[phone] Referring Provider: Paras Mckinley, [address], [place], [address]. tel:[phone] Est Pt Eval 25 Min [facility], [address] [facility] [address] [facility] [address], [place], [address], [place] tel:[phone] [facility] Postlaminectomy syndrome 1 Tal Bernard. [address], [place], [address], [place]. tel:[phone] Referring Provider: Marco Antonio Parada, [address] [facility] [address], [place], [address]. tel:[phone] Est Pt Eval 25 Min [facility], [address] [facility] [address], [place], [address], [place] tel:[phone] [facility] back pain (chief complaint) Body mass index (BMI) 26.0-26.9, adultOther intervertebral disc degeneration, lumbar regionLow back pain, unspecifiedCerv icalgia 1 Nahun Alexandrekacie. [address] [facility] [address], [place], [address], [place]. tel:[phone] Referring Provider: Donnie Garnica, [address] [facility] [address], [place], [address]. tel:[phone] [facility], [address] [address], [place], [place], [address], [place] tel:[phone] [facility] back pain (chief complaint) Other intervertebral disc degeneration, lumbar region 1 RN RN. [address] [facility], [place], [place], [address], [place]. tel:[phone] Referring Provider: NINO JONES. [facility], [address], [place], [address], [place] tel:[phone] [facility] back pain (chief complaint) Radiculopathy, lumbar regionOther intervertebral disc degeneration, lumbar regionLow back pain, unspecifiedOpio id dependence, uncomplicatedRa diculopathy, lumbar regionOther intervertebral disc degeneration, lumbar regionLow back pain, unspecifiedOpio id dependence, uncomplicated 1 [facility]. [address] [facility] [address], [place], [place], [address], [place]. tel:[phone] Referring Provider: Ba Cardoza, [address] [facility] [address], [place], [address]. tel:[phone] [facility], [address], [place], [place], [address], [place] tel:[phone] [facility] No Information 1 Blas Houston. [address], [place], [place], [address], [place]. tel:[phone] Referring Provider: Ba Cardoza, [address] [facility] [address], [place], [address]. tel:[phone] [facility], [facility], [address], [place], [place], [address], [place] tel:[phone] [facility] No Information 1 Elie Cosme. [address], [place], [address], [place]. tel:[phone] Referring Provider: Ba Cardoza, [address], [place], [address]. tel:[phone] [facility], [facility], [address], [place], [place], [address], [place] tel:[phone] [facility] back pain (chief complaint) Other intervertebral disc degeneration, lumbar region 1 RN RN. [address], [place], [place], [address], [place]. tel:[phone] Referring Provider: REFERRAL XIN, NINO. [facility], [facility], [address], [place], [place], [address], [place] tel:[phone] [facility] No Information 1 Tal Crain. [address], [place], [place], [address], [place]. tel:[phone] Referring Provider: Paras Mckinley, [address], [place], [address]. tel:[phone] [facility], [address], [place], [address], [place] tel:[phone] [facility] back pain (chief complaint) Radiculopathy, lumbar regionOther intervertebral disc degeneration, lumbar regionLow back pain, unspecifiedRadi culopathy, lumbar regionOther intervertebral disc degeneration, lumbar regionLow back pain, unspecified 1 [facility]. [address], [place], [place], [address], [place]. tel:[phone] Referring Provider: Paras Mckinley, [address], [place], [address]. tel:[phone] [facility], [facility], [address], [place], [place], [address], [place] tel:[phone] [facility] No Information 1 Luis Angel Garcias. [address] [place], [address], [place]. tel:[phone] Referring Provider: Paras Mckinley, [address], [place], [address]. tel:[phone] Est Pt Eval 25 Min Telehealth [facility], [facility], [address], [place], [place], [address], [place] tel:[phone] [facility] back pain (chief complaint) Low back pain, unspecifiedRadi culopathy, lumbar region 1 Nahun Fields. [address], [place], [address], [place]. tel:[phone] Referring Provider: Donnie Garnica, [address], [place], [address]. tel:[phone] Est Pt Eval 25 Min [facility], [facility], [address], [place], [place], [address], [place] tel:[phone] [facility] Body aches (chief complaint) CervicalgiaRadi culopathy, lumbar regionLong term (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 analgesicPostla minectomy syndrome Jun-0 1 Blade Landrum. [address], [place], [address], [place]. tel:[phone] Referring Provider: Lucita Murguia, [address], [place], [address]. tel:[phone] [facility], [address] [facility] [address], [place], [place], [address], [place] tel:[phone] [facility] CervicalgiaLow back pain Sep-0 1 RN RN. [address], [place], [place], [address], [place]. tel:[phone] Referring Provider: Jocelyn Corral, [address] [facility] [address], [place], [address]. tel:[phone] Psychiatric Diagnostic Evaluation [facility], [address] [facility] [address], [place], [place], [address], [place] tel:[phone] [facility] Pain disorder with related psychological factors 1 Ellis Banks. [address], [place], [address], [place]. tel:[phone] Referring Provider: Jocelyn Corral, [address] [facility] [address], [place], [address]. tel:[phone] New Pt Eval 45 Min [facility], [address] [facility] [address], [place], [place], [address], [place] tel:[phone] [facility] Not Listed (chief complaint)b ack pain (chief complaint) CervicalgiaLow back painRadiculopat hy, lumbar regionLong term (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 analgesicParapl egiaBipolar disorder, unspecifiedRadi culopathy, cervical regionPostlamin ectomy syndromeBody mass index (BMI) 26.0-26.9, adult May- 1 Tal Crain. [address], [place], [place], [address], [place]. tel:[phone] Referring Provider: Marco Antonio Parada, [address] [facility] [address], [place], [address]. tel:[phone] [facility], [address] [facility] [address], [place], [place], [address], [place] tel:[phone] [facility] No Information 4 Bello LEILA Ly. [address] [facility] [facility] [address], [place], [address], [place]. tel:[phone] Referring Provider: NINO JONES. [facility], [address] [facility] [address], [place], [place], [address], [place] tel:[phone] [facility] No Information 4 Ra Caldwell. [address] [place], [address], [place]. tel:[phone] Referring Provider: Jorge Alberto Mayorga DDS, [address] [facility] [address], [place], [address]. tel:[phone] [facility], [address] [facility] [address], [place], [place], [address], [place] tel:[phone] [facility] No Information 3 Tal Crain. [address] [facility] [address], [place], [place], [address], [place]. tel:[phone] Referring Provider: Stef Mayorga MD, [address] [facility] [address], [place], [address]. tel:[phone] Family History Family Member Type Diagnosis Age At Onset No Information Payers Payer name Insurance type Covered republican ID Authornathaniela tion(s) Medicare Part B MB [id number] Medical Assistance [facility] [id number] Social History Type Description Quantity Date Captured [...] Recs: Telehealth Visit - Dr. Wells at [facility] ordered Referral Referred To: lumbar epidural steroid injection Ordered: lumbar epidural steroid injection L5-S1 ordered Referral Ordered: Infectious Disease (related to Other specified complications of surgical and medical care, not elsewhere classified, initial encounter) ordered Referral Ordered: Infectious Disease (related to Infection and inflammatory reaction due to other nervous system device, implant or graft, initial encounter) ordered Referral Referred To: [facility]
[address] [place], [phone] Ordered: Referrals: Infectious Disease. Evaluate and treat ordered Referral Referred To: Physical Therapy Ordered: Physical Therapy. Evaluate and treat ordered Referral Ordered: Referrals: Behavioral Health ordered Referral Ordered: spinal cord stimulation ordered Referral Referred To: cervical epidural steroid injection Ordered: cervical epidural steroid injection on both sides C6-7 ordered Referral Referred To: Physical Therapy Ordered: Physical Therapy ordered Appointment Ariel Muller BOOKED Appointment Ariel Muller BOOKED Future Order: Lab [...] MR I - Cervical Spine W/O Contrast ([id number]), Ordered on: Ordered History Of Present Illness Encounter Date Complaint History Of Prese nt Illness lower back pain The pain is loca samantha in the low back on both sides. The lower back pain radiates into the both legs. Pain intensity is currently 7/10.The pain has been stable . The pain is constant. The pain is described as stabbing and throbbing.The patient denies aggravating factors. The patient denies any relieving factors. lower back pain The pain is loca [...] Date Instruction Additional Infor esteban - Schedule bilateral transforaminal lumbar epidural steroid injection at L5-S1, insurance has approved- Refill and continue Buprenorphine 2mg 4x/day for fill today 06/08/24- Refill and continue Fentanyl Patch 25mcg for fill today 06/08/24- Continue Gabapentin 600mg 2 pills 3x/day and Baclofen as prescribed by outside provider- Consider reimplanting pain pump- Follow up with Nurse Practitioner or Physician Stock Crane Operator in 4 weeks, telehealth ok Related to [...] Consider reimplanting pain pump- Follow up with Qiying She STERILIZATION TECHNICIAN-C in 4 weeks, telehealth ok Related to [...] reimplanting pain pump- Follow up with Oneil She STERILIZATION TECHNICIAN-C in 5-6 weeks, telehealth ok Related to [...] don't hear back in a week call [phone]- Refill and continue Buprenorphine 2mg 4x/day, for fill 04/10/24- Refill and continue Fentanyl Patch 25mcg, for fill 04/10/24- Continue Gabapentin 600mg 2 pills 3x/day and Baclofen as prescribed by outside provider- Consider reimplanting pain pump- Follow up with Oneil Soto NP-C in 1 month, in CLINIC 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, lumbar region - Follow up in the clinic Relate d to Radiculopathy, cervical region - Refill and continu e Buprenorphine 2mg 4x/day, for fill 03/11/24- Refill and continue Fentanyl Patch 25mcg, for fill 03/11/24- Continue Gabapentin 600mg 2 pills 3x/day and Baclofen as prescribed by outside provider- Consider reimplanting pain pump- Follow up with advanced practice provider in 1 month, telehealth ok 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, lumbar region - Keep cervical epid ural steroid [...] lumbar region Schedule cervical ep idural steroid injection has been approved. You can call to schedule this any time. Related to Cervicalgia Schedule cervical ep idural steroid injection, Jorje [...] Request medical records from Dr. Wells at [facility]- Follow up in 1 month, telehealth ok 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, lumbar region - Refill and continu e Buprenorphine 2mg 4x/day. Fill 07/31/23- Refill and continue Fentanyl Patch 25mcg. Fill 07/31/23- Continue Gabapentin and Baclofen as prescribed by outside provider- Request medical records from Dr. Wells at [facility]- Follow up in 1 month, [...] physician for pain pump [facility] -Continue antibiotics as prescribed for UTI- Follow up in 1 month via telehealth 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, lumbar region Lifestyle education regarding di et Related to Body mass index [BMI] 22.0-22.9, adult - Follow up as needed Related to Radiculopathy, lumbar region - Refill and continu e Buprenorphine 2mg 4x/day. Fill on 05/06/23- Refill and continue Fentanyl Patch 25mcg. Fill on 05/06/23- Continue Gabapentin and Baclofen as prescribed by outside provider- Keep Transforaminal Lumbar Epidural Steroid Injection as scheduled on 05/12/23- Follow up with infections disease or primary care provider physician to get clearance for pain pump re-implantSend [facility] after appointment has been completedIf not interested in pain pump consider care with [facility].- Follow up in 4 weeks IN CLINIC [...] clearance for pain pump re-implantSend records to [facility] after appointment has been completedIf not interested in pain pump consider care with [facility].- Follow up in one month via telehealth [...] injection is not helpful Related to Cervicalgia Lifestyle education regarding di et Related to [...] pump- Continue following up with surgeon and credentialing specialist- Follow up in one month via [...] release of information for medical records from [facility] in [place] to be sent to [facility]- Follow up with infectious disease physician for clearance before re-implant IT pain pump- Continue following up with surgeon and credentialing specialist- Follow up in one month via [...] -Follow up in one month with BREANNE, telehealth [place] Related to Intervertebral disc disorders w [...] steroid injection-Obtain records from Dr. 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 Same plan [...] index [BMI] 26.0-26.9, adult -Follow up with [facility] Related to Infection and inflammatory reaction due to other nervous system device, implant or graft, initial encounter -Refill and continue Bel[place] 20mcg/hr patch, for fill on 12/10/21-Schedule annual physical Therapy appt.-Follow up in 4 weeks via telehealth Related to Radiculopathy, lumbar region Same plan of care as statement for above diagnosis, no changes 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 Same plan [...] device, implant or graft, initial encounter -Continue [place] 5-32 5mg, 1-2 tabs, 4-6x/day as needed for post-surgical pain-Continue Bactrim oral antibiotic as prescribed on 11/08/2021 -Refill and continue Butrans 20mcg/hr patch as prescribed, change every 4 days, for fill on 11/12/2021-Follow up as scheduled 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, lumbar region Same plan of care as statement for above diagnosis, no changes Related to alf (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 analgesic Follow up [...] Related to Postlaminectomy syndrome, not elsewhere classified Lifestyle education regarding di et Related to [...] for above diagnosis, no changes 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 -Continue with outside Physical Therapy, release records to [facility]-Follow up in one month -UDT done at today's visit Related to Cervicalgia Same plan of care as statement for above diagnosis, no changes Related to Postlaminectomy syndrome Same plan of care as statement for above diagnosis, no changes Related to Postlaminectomy syndrome - order MRI of the c ervical spine at [facility]- give literature on implantable devices- schedule cervical [...] for above diagnosis, no changes Related to alf (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 analgesic Same plan of care as statement for above diagnosis, no changes Related to Radiculopathy, lumbar region Dietary needs education Related to Body mass index [BMI] 26.0-26.9, adult Prescribed activity/ exercise education Related to Body mass index [BMI] 26.0-26.9, adult Assessments Type Assessment Date No Information Patient Care Teams Name Effective Dates (start - stop) Status Members No Information
== END 2024-06-30 10:32 | disposition home or self-care (01) ==
LOC: WOUND 10:31
PROVIDERS: PCP Family Medicine; Visit Provider Surgery
DX: I89.0 Lymphedema, not elsewhere classified (principal); M62.3 Immobility syndrome (paraplegic); F17.210 Nicotine dependence, cigarettes, uncomplicated; Z99.3 Dependence on wheelchair
CPT/HCPCS: G0463

== ENCOUNTER 2025-03-31 12:42 | Outpatient (CLI) | payer MEDICARE, MEDICAID, SELFPAY | END 2025-03-31 12:43 | disposition home or self-care (01) | LOC: WOUND 12:45 | PROVIDERS: PCP Family Medicine; Visit Provider Nurse Practitioner Family | DX: L89.153 Pressure ulcer of sacral region, stage 3 (principal); I89.0 Lymphedema, not elsewhere classified; I87.331 Chronic venous hypertension (idiopathic) with ulcer and inflammation of right lower extremity; L97.811 Non-pressure chronic ulcer of other part of right lower leg limited to breakdown of skin; I87.322 Chronic venous hypertension (idiopathic) with inflammation of left lower extremity; M62.3 Immobility syndrome (paraplegic); Z99.3 Dependence on wheelchair | CPT/HCPCS: 11042; G0463 ==

== ENCOUNTER 2025-04-07 12:47 | Outpatient (CLI) | payer MEDICARE, MEDICAID, SELFPAY | END 2025-04-07 12:48 | disposition home or self-care (01) | LOC: WOUND 12:47 | PROVIDERS: PCP Family Medicine; Visit Provider Nurse Practitioner Family | DX: L89.623 Pressure ulcer of left heel, stage 3 (principal); I89.0 Lymphedema, not elsewhere classified; L89.153 Pressure ulcer of sacral region, stage 3; M62.3 Immobility syndrome (paraplegic); Z99.3 Dependence on wheelchair | CPT/HCPCS: 11042 ==

== ENCOUNTER 2025-04-14 10:41 | Outpatient (CLI) | payer MEDICARE, MEDICAID, SELFPAY | END 2025-04-14 10:42 | disposition home or self-care (01) | LOC: WOUND 10:41 | PROVIDERS: PCP Family Medicine; Visit Provider Nurse Practitioner Family | DX: L89.893 Pressure ulcer of other site, stage 3 (principal); I89.0 Lymphedema, not elsewhere classified; M62.3 Immobility syndrome (paraplegic); Z93.3 Colostomy status; Z99.3 Dependence on wheelchair | CPT/HCPCS: 97597 ==

== ENCOUNTER 2025-04-21 12:57 | Outpatient (CLI) | payer MEDICARE, MEDICAID, SELFPAY | END 2025-04-21 12:58 | disposition home or self-care (01) | LOC: WOUND 12:57 | PROVIDERS: PCP Family Medicine; Visit Provider Nurse Practitioner Family | DX: L89.893 Pressure ulcer of other site, stage 3 (principal); L89.153 Pressure ulcer of sacral region, stage 3; L89.623 Pressure ulcer of left heel, stage 3; I89.0 Lymphedema, not elsewhere classified; M62.3 Immobility syndrome (paraplegic); Z93.3 Colostomy status; Z99.3 Dependence on wheelchair | CPT/HCPCS: 11042; G0463 ==

== ENCOUNTER 2025-04-28 12:49 | Outpatient (CLI) | payer MEDICARE, MEDICAID, SELFPAY | END 2025-04-28 12:50 | disposition home or self-care (01) | LOC: WOUND 12:49 | PROVIDERS: PCP Family Medicine; Visit Provider Physician Assistant | DX: L89.623 Pressure ulcer of left heel, stage 3 (principal); L89.153 Pressure ulcer of sacral region, stage 3; I89.0 Lymphedema, not elsewhere classified; L89.893 Pressure ulcer of other site, stage 3; M62.3 Immobility syndrome (paraplegic); Z93.3 Colostomy status; Z99.3 Dependence on wheelchair | CPT/HCPCS: 97597 ==

== ENCOUNTER 2025-05-05 12:55 | Outpatient (CLI) | payer MEDICARE, MEDICAID, SELFPAY | END 2025-05-05 12:56 | disposition home or self-care (01) | LOC: WOUND 12:55 | PROVIDERS: PCP Family Medicine; Visit Provider Nurse Practitioner Family | DX: L89.623 Pressure ulcer of left heel, stage 3 (principal); I89.0 Lymphedema, not elsewhere classified; M62.3 Immobility syndrome (paraplegic); Z99.3 Dependence on wheelchair | CPT/HCPCS: 97597 ==

== ENCOUNTER 2025-05-19 13:06 | Outpatient (CLI) | payer MEDICARE, MEDICAID, SELFPAY | END 2025-05-19 13:07 | disposition home or self-care (01) | LOC: WOUND 13:06 | PROVIDERS: PCP Family Medicine; Visit Provider Nurse Practitioner Family | DX: L89.323 Pressure ulcer of left buttock, stage 3 (principal); I89.0 Lymphedema, not elsewhere classified; M62.3 Immobility syndrome (paraplegic); Z99.3 Dependence on wheelchair | CPT/HCPCS: 11042; G0463 ==

== ENCOUNTER 2025-05-30 08:35 | Outpatient (CLI) | payer MEDICARE, MEDICAID, SELFPAY | END 2025-05-30 08:36 | disposition home or self-care (01) | PROVIDERS: PCP Family Medicine; Visit Provider Family Medicine | DX: G89.4 Chronic pain syndrome (principal); I89.0 Lymphedema, not elsewhere classified; Z13.6 Encounter for screening for cardiovascular disorders | CPT/HCPCS: 80048; 80061; 84460; 85025 ==